=== PATIENT | male | born 1975 | race Caucasian/White ===

== ENCOUNTER 2022-05-21 01:05 | Inpatient (IN) ==
[2022-05-21] MEDS ORDERED: MoRPHine SULFATE 4 MG/ML 1 ML CARP\\VIAL IV STA (01:15)
[2022-05-21] MEDS ORDERED: SODIUM CHLORIDE 0.9% 1000ML 1,000 ML IV STA (01:15)
[2022-05-21] MEDS ORDERED: ONDANSETRON INJ 2 MG/ML 2 ML VIAL IV STA (01:15)
[2022-05-21 01:34] LABS: Basophils # (auto) 0.03 K/uL (0-0.2); Basophils % (auto) 0.3 %; Eosinophils # (auto) 0.12 K/uL (0-0.50); Hematocrit (blood only) 44.5 % (40.1-51.0); Hemoglobin 15.6 g/dl (14.0-18.0); Immature Granulocytes # (auto) 0.03 K/uL (0.00-0.02); Immature Granulocytes % (auto) 0.3 %; Lymphocytes # (auto) 3.04 K/uL (1.2-3.4); Mean Corpuscular Hemoglobin 32.4 pg (25.0-34.0); Mean Corpuscular Hgb Conc 35.1 g/dL (32.0-36.0); Mean Corpuscular Volume 92.5 fL (80.0-100.0); Mean Platelet Volume 9.7 fL (9.4-12.4); Monocytes # (auto) 0.95 K/uL (0.24-0.82); Monocytes % (auto) 8.1 %; Neutrophils # (auto) 7.54 K/uL (1.4-6.5); Neutrophils % (auto) 64.3 %; Platelet Count 236 K/uL (130-400); RDW Coefficient of Variation 12.6 % (11.5-14.5); Red Blood Count 4.81 M/uL (4.63-6.08); White Blood Count 11.71 K/ul (4.8-10.8)
[2022-05-21 01:40] LABS: iSTAT Creatinine 1.5 mg/dl (0.6-1.3); iSTAT Hemoglobin 15.6 g/dl (14.0-18.0); iSTAT Ionized Calcium 1.1 mmol/l (1.12-1.32); iSTAT Potassium 3.4 mmol/L (3.3-5.0)
[2022-05-21] MEDS ORDERED: OPTIRAY 350 100ml IV ONE (01:47)
--- NOTE | 2022-05-21 01:53 | Emergency Department Note ---
History of Present Illness General Chief complaint: Abdominal Pain Stated complaint: ABDOMINAL PAIN/NAUSEA/VOMITING Time Seen by Provider: 05/21/22 01:14 History of Present Illness Maximum Pain Intensity: 8 This 46-year-old presents to the ER complaining of severe abdominal pain Location: Mid abdomen Quality: Painful Severity: Severe Duration: Today Timing: Started after lunch Context: Patient was concerned and came in Modifying factors: better with nothing; worse with palpation Patient states after zoom meeting his pain got much worse. He is not sure what happened. No direct trauma. He has had hernia surgeries. No other surgeries. He states he is normally bradycardic. He is quite active. Patient denies chest pain, dyspnea, vomiting, diarrhea, fever, chills. Home Medications Medication Instructions Recorded Confirmed Type ibuprofen 200 mg tablet 400 mg PO DIRECTED PRN Pain 05/21/22 05/21/22 History Allergies Allergy/AdvReac Type Severity Reaction Status Date / Time No Known Allergies Allergy Verified 05/21/22 02:47 Past Med/Surg History Medical History (Updated 05/21/22 @ 02:18 by Kajal Ryder PA-C) LUIS (generalized anxiety disorder) History of colitis Human papilloma virus IBS (irritable bowel syndrome) OCD (obsessive compulsive disorder) Panic attacks Surgical History History of colonoscopy History of tooth extraction Nausea and vomiting after administration of anesthetic agent S/P orchiopexy Status post scrotal varicocelectomy Social History Smoking Status: Never smoker Second Hand Exposure: No; Hx Alcohol Use: Yes Alcohol type: beer and wine Hx Substance Use: No Preferred Language: [place] Communication Ability: Effective Visual Impairment: No Limitations Snuff Box Finisher Required: No Beliefs That Will Affect Care: None Current Living Situation: Spouse Feels Safe at Home: Yes Assistive Devices: None Review of Systems A total of 10 systems reviewed and were otherwise negative Physical Exam Vital Signs Vital Signs - 24 hr 05/21/22 01:38 05/21/22 02:27 Temperature 36.5 C Temperature Source Oral Pulse Rate 47 L Pulse Rate [Apical] 43 L Respiratory Rate 22 13 Respiratory Effort / Characteristics Spontaneous Moaning Non-Labored Spontaneous Respiratory Depth Normal Normal Blood Pressure 126/74 Blood Pressure [Right Arm] 134/81 Blood Pressure Mean 91 Blood Pressure Mean [Right Arm] 98 Pulse Oximetry 96 99 Oxygen Delivery Method Room Air Room Air Sepsis New/Unexplained Change in Mental Status N/A Sepsis Action Taken by Nursing No Action Required VITALS: Vitals are noted on the nurse's note and reviewed by myself. Vital signs stable. GENERAL: Pleasant male who appears in pain, in no acute distress, nondiaphoretic, well-developed well-nourished. SKIN: The skin was without rashes, erythema, edema, or bruising. There is no tenting of the skin. Capillary reflex less than 2 seconds. HEAD: Normocephalic atraumatic. EARS: External auditory canals clear, EYES: Pupils equal round and reactive to light and accommodation. Conjunctivae without injection, sclerae without icterus. Extraocular movements intact. NOSE: Patent, turbinates without inflammation or discharge. MOUTH: Mucous membranes moist. Pharynx without erythema or exudate. Uvula midline. Airway patent. Tongue does not deviate. NECK: Supple without nuchal rigidity. No lymphadenopathy. No thyromegaly. Cervical spine is nontender. No JVD. HEART: Regular rate and rhythm LUNGS: Clear to auscultation bilaterally without wheezes, rales or rhonchi. No retractions or accessory muscle use. ABDOMEN: Positive bowel sounds x 4. Normal tympanic percussion. Soft, diffusely tender to palpation without masses or organomegaly. Coe sign negative. + guarding + rebound tenderness. No CVA tenderness MUSCULOSKELETAL: No muscle atrophy, erythema, or edema noted. NEURO: Patient was alert and oriented to person place and time. Normal sensation to light and sharp touch. No focal neurological deficits. Course Administered Medications Discontinued Medications Sodium Chloride (Nss 1000ml) 1,000 mls @ 999 mls/hr IV .Q1H1M STA Stop: 05/21/22 02:15 Last Infusion: 05/21/22 02:26 Dose: 0 mls/hr Documented By: Admin: 05/21/22 01:33 Dose: 999 mls/hr Documented By: JEANINE Ioversol (Optiray 350 100ml) 89 ml IV ONCE ONE Stop: 05/21/22 01:48 Last Admin: 05/21/22 01:47 Dose: 89 ml Documented By: RAJESH Morphine Sulfate (Morphine Sulfate 4 Mg/Ml 1 Ml Carp\Vial) 4 mg IV NOW STA Stop: 05/21/22 01:16 Last Admin: 05/21/22 01:29 Dose: 4 mg Documented By: JEANINE Ondansetron HCl (Ondansetron Inj 2 Mg/Ml 2 Ml Vial) 4 mg IV NOW STA Stop: 05/21/22 01:16 Last Admin: 05/21/22 01:29 Dose: 4 mg Documented By: JEANINE Medical Decision Making Medical Records Attestation: I reviewed the patient's medical records. Home Medications Current Medication List: was personally reviewed by me Laboratory Data Attestation: I reviewed the patient's lab results. Result diagrams: 05/21/22 01:05/21/22:22 Lab Results 05/21/22 05/21/22 05/21/22 Range/Units 01: 01: 01:27 WBC 11.71 H (4.8-10.8) K/ul RBC 4.81 (4.63-6.08) M/uL Hgb 15.6 (14.0-18.0) g/dl POC Hgb 15.6 (14.0-18.0) g/dl Hct 44.5 (40.1-51.0) % POC Hct 46 (42-52) % MCV 92.5 (80.0-100.0) fL MCH 32.4 (25.0-34.0) pg MCHC 35.1 (32.0-36.0) g/dL RDW Std Deviation 43.0 (36.4-46.3) fL RDW Coeff of Trish 12.6 (11.5-14.5) % Plt Count 236 (130-400) K/uL MPV 9.7 (9.4-12.4) fL Immature Gran % (Auto) 0.3 % Neut % (Auto) 64.3 % Lymph % (Auto) 26.0 % [place] % (Auto) 8.1 % Eos % (Auto) 1.0 % Baso % (Auto) 0.3 % Neut # (Auto) 7.54 H (1.4-6.5) K/uL Lymph # (Auto) 3.04 (1.2-3.4) K/uL [place] # (Auto) 0.95 H (0.24-0.82) K/uL Eos # (Auto) 0.12 (0-0.50) K/uL Baso # (Auto) 0.03 (0-0.2) K/uL Immature Gran # (Auto) 0.03 H (0.00-0.02) K/uL POC Sodium 140 (135-144) mmol/L Sodium 139 (136-145) mmol/L POC Potassium 3.4 (3.3-5.0) mmol/L Potassium 3.5 (3.5-5.1) mmol/L POC Chloride 102 (101-112) mmol/L Chloride 102 (98-107) mmol/L Carbon Dioxide 28 (21-32) mmol/L POC Total CO2 29 (24-31) mmol/L Anion Gap 9 (3-11) POC Anion Gap 13.0 L (16-25) mmol/L POC BUN 22 H (7-18) mg/dl BUN 21 (6-23) mg/dl Creatinine 1.44 H (0.6-1.4) mg/dl POC Creatinine 1.5 H (0.6-1.3) mg/dl Est Cr Clr Drug Dosing 82.0 ml/min Est GFR ( Amer) 67.0 ml/min Est GFR (Non-Af Amer) 57.8 ml/min BUN/Creatinine Ratio 14.6 (10-20) Glucose 115 H (70-99(Fasting)) mg/dl POC Glucose (other) 116 H (70-99) mg/dl Lactate (0.4-2.0) mmol/L Calcium 10.0 (8.5-10.1) mg/dl POC Ioniz Calcium Kristi 1.10 L (1.12-1.32) mmol/l Total Bilirubin 1.1 H (0.2-1.0) mg/dl AST 28 (13-39) U/L ALT 39 (7-52) U/L Alkaline Phosphatase 54 (34-104) U/L Troponin I High Sens 7.0 (0-20) pg/ml Total Protein 7.1 (6.0-8.3) gm/dl Albumin 4.2 (3.4-5.0) gm/dl Globulin 2.9 (2.5-4.0) gm/dl Albumin/Globulin Ratio 1.4 (0.9-2) Lipase 8 L (11-82) U/L SARS-CoV-2, RNA, NAAT (NEGATIVE) 05/21/22 05/21/22 Range/Units 02:06 02:20 WBC (4.8-10.8) K/ul RBC (4.63-6.08) M/uL Hgb (14.0-18.0) g/dl POC Hgb (14.0-18.0) g/dl Hct (40.1-51.0) % POC Hct (42-52) % MCV (80.0-100.0) fL MCH (25.0-34.0) pg MCHC (32.0-36.0) g/dL RDW Std Deviation (36.4-46.3) fL RDW Coeff of Trish (11.5-14.5) % Plt Count (130-400) K/uL MPV (9.4-12.4) fL Immature Gran % (Auto) % Neut % (Auto) % Lymph % (Auto) % [place] % (Auto) % Eos % (Auto) % Baso % (Auto) % Neut # (Auto) (1.4-6.5) K/uL Lymph # (Auto) (1.2-3.4) K/uL [place] # (Auto) (0.24-0.82) K/uL Eos # (Auto) (0-0.50) K/uL Baso # (Auto) (0-0.2) K/uL Immature Gran # (Auto) (0.00-0.02) K/uL POC Sodium (135-144) mmol/L Sodium (136-145) mmol/L POC Potassium (3.3-5.0) mmol/L Potassium (3.5-5.1) mmol/L POC Chloride (101-112) mmol/L Chloride (98-107) mmol/L Carbon Dioxide (21-32) mmol/L POC Total CO2 (24-31) mmol/L Anion Gap (3-11) POC Anion Gap (16-25) mmol/L POC BUN (7-18) mg/dl BUN (6-23) mg/dl Creatinine (0.6-1.4) mg/dl POC Creatinine (0.6-1.3) mg/dl Est Cr Clr Drug Dosing ml/min Est GFR ( Amer) ml/min Est GFR (Non-Af Amer) ml/min BUN/Creatinine Ratio (10-20) Glucose (70-99(Fasting)) mg/dl POC Glucose (other) (70-99) mg/dl Lactate 1.7 (0.4-2.0) mmol/L Calcium (8.5-10.1) mg/dl POC Ioniz Calcium Kristi (1.12-1.32) mmol/l Total Bilirubin (0.2-1.0) mg/dl AST (13-39) U/L ALT (7-52) U/L Alkaline Phosphatase (34-104) U/L Troponin I High Sens (0-20) pg/ml Total Protein (6.0-8.3) gm/dl Albumin (3.4-5.0) gm/dl Globulin (2.5-4.0) gm/dl Albumin/Globulin Ratio (0.9-2) Lipase (11-82) U/L SARS-CoV-2, RNA, NAAT NEGATIVE (NEGATIVE) Imaging Data Attestation: I personally reviewed and interpreted this imaging study as follows: MDM Narrative Prior records/ancillary studies reviewed. Triage Nursing notes reviewed. Additional history obtained from EMS. The patient's history was concerning for abdominal pain. Differential diagnosis: Etiologies such as appendicitis, diverticulitis, PUD, biliary pathology, UTI, pancreatitis, obstruction, mesenteric ischemia, aortic pathology, infections, inflammatory bowel disease, renal colic, as well as others were entertained. Physical examination findings: As above. ER treatment provided: An order was placed for continuous cardiac monitoring. The monitor shows a rate of 30-80 with a sinus rhythm. Morphine and Zofran were written for, IV fluids On reassessment the patient felt better. Diagnostics interpreted by me: ECG: Ordered for bradycardia EKG: Normal sinus, normal intervals, no acute ST-T wave changes. Impression sinus bradycardia interpreted by myself I think arrhythmia is unlikely. EKG shows normal sinus rhythm with no interval abnormalities such as QT prolongation or WPW. There are no findings to suggest Brugada syndrome. Cardiac monitoring in the emergency department reveals no tachycardic or bradycardic dysrhythmia. Hypertrophic cardiomyopathy was considered but there are no clear historical elements pointing toward this. EKG is not suggestive. The QRS voltage is not extremely large and there are no suggestive Q waves. The labs revealed leukocytosis Imaging studies: CT ABDOMEN & PELVIS With Contrast: Multiple fluid and gas-filled dilated small bowel loops throughout the abdomen and pelvis with regional mesenteric edema. There is a transition point noted in the anterior midline pelvis (series 302; image 23), consistent with a high-grade mid to distal small bowel obstruction. No pneumatosis or pneumoperitoneum. Trace presumed reactive free fluid in the pelvis, perihepatic and perisplenic regions and Ramirez's pouch. The bladder is unremarkable. No acute osseous or significant overlying soft tissue abnormality. Incidental postsurgical changes involving the right inguinal region. Incidental normal caliber appendix. The liver, gallbladder, pancreas, spleen, adrenal glands and kidneys are unremarkable. Radiologist: Chaitanya Cummings MD Consultation: A consultation was placed with the GS, Dr French. The case was discussed and diagnostics were reviewed. The patient was evaluated in the ER for further treatment. Medicine was consulted and will admit. Exam and history seem consistent with small bowel obstruction. Surgery and medicine were consulted. Patient will be admitted to the hospital. By the evaluation outlined above emergent etiologies such as appendicitis, diverticulitis, PUD, biliary pathology, UTI, pancreatitis, mesenteric ischemia, aortic pathology, infections, inflammatory bowel disease, renal colic, as well as others were deemed relatively unlikely. The pt informed about the findings as listed above. All questions were answered and pleased with the treatment. The chart was completed utilizing rVue Speech voice recognition software. Grammatical errors, random word insertions, pronoun errors, and incomplete sentences are an occassional consequence of this system due to software limitations, ambient noise, and hardware issues. Any formal questions or concerns about the content, text, or information contained within the body of this dictation should be directly addressed to the physician purchasing administrative assistant for clarification. Impression & Plan Small bowel obstruction Discharge Plan Visit Data Chief Complaint: Abdominal Pain Stated Complaint: ABDOMINAL PAIN/NAUSEA/VOMITING ED Provider: Kaley Jimenez ED Midlevel Provider: Kajal Ryder Discharge Problem: Small bowel obstruction Patient Disposition: Admitted As Inpatient Condition: Good Forms Stand Alone Forms: My [employer] Prescriptions Prescriptions: No Action ibuprofen 200 mg Tablet 400 mg PO DIRECTED PRN (Reason: Pain) Referrals Referrals: Dominick Baker MD [Primary Care Provider] -
[2022-05-21 02:09] LABS: Albumin Globulin Ratio 1.4 (0.9-2); Albumin Level 4.2 gm/dl (3.4-5.0); BUN Creatinine Ratio 14.6 (10-20); Bilirubin,Total 1.1 mg/dl (0.2-1.0); Est GFR (Non-African American) 57.8 ml/min; Globulin 2.9 gm/dl (2.5-4.0); Potassium 3.5 mmol/L (3.5-5.1); Total Protein 7.1 gm/dl (6.0-8.3)
--- NOTE | 2022-05-21 05:55 | History and Physical Report ---
DATE OF ADMISSION: 05/21/2022. CHIEF COMPLAINT: Abdominal pain. HISTORY OF PRESENT ILLNESS: This is a 46-year-old male with past medical history significant for irritable bowel syndrome, diarrhea, history of plantar warts, history of generalized anxiety disorder, obsessive compulsive disorder, panic attacks, history of umbilical hernia, incisional hernia, presents with abdominal pain starting yesterday afternoon associated with nausea and vomiting. The imaging studies showed small-bowel obstruction, possible high-grade obstruction. Currently, resting comfortably and hemodynamically stable. When he came, the pain was 7/10 in severity, currently pain is 2/10 in severity. No headache, no blurred vision, no earache, no runny nose, no sore throat, no cough, no difficulty swallowing, no chest pain, no shortness of breath. Last bowel movement was last evening at 7:00 p.m. Normal bladder movements. ALLERGIES: No known drug allergies. PAST MEDICAL HISTORY: As mentioned above. PAST SURGICAL HISTORY: Colonoscopy, orchiopexy for undescended testes in 1987, repair of incisional hernia, repair of right inguinal hernia, revision of spermatic cord veins in 2003. MEDICATIONS: Ibuprofen as needed. FAMILY HISTORY: Significant for brother has hypertension, father has hypertension, sister has hypertension. SOCIAL HISTORY: , no smoking. Alcohol two per week as per Epic. No drug use. REVIEW OF SYSTEMS: As per HPI. Rest of review of systems is negative. PHYSICAL EXAMINATION: GENERAL: The patient is of moderate build, not in acute distress. VITAL SIGNS: Temperature 36.5, pulse 43, respiratory rate 13, blood pressure 134/81, oxygen 99% on room air. HEENT: Pupils equal, round and reactive to light. Oral mucosa moist. NECK: No JVD or neck masses. CARDIOVASCULAR: S1 and S2 heard. Regular rate and rhythm. No murmur, no gallop. RESPIRATORY SYSTEM: Normal AP diameter. No accessory muscle use. No wheezing, no crackles. ABDOMEN: Soft, bowel sounds present. Mild abdominal discomfort. No guarding, no rigidity, no distention. CENTRAL NERVOUS SYSTEM: Cranial nerves II-XII grossly intact, nonfocal. EXTREMITIES: No edema, no erythema. LABORATORY DATA: WBC 11.7, hemoglobin 15.6, hematocrit 44.5, platelets 236. Sodium 139, potassium 3.5, chloride 102, bicarbonate 28, BUN 21, creatinine 1.44, serum glucose 115, lactate 1.7, calcium 10, total bilirubin 1.1, AST 28, ALT 39, alkaline phosphatase 54. Troponin I high sensitivity 7, lipase 8. SARS-CoV-2 rapid test negative. IMAGING DATA: CT of abdomen and pelvis, preliminary report, possible high-grade small bowel obstruction. EKG: Sinus bradycardia at a rate of 39. ASSESSMENT AND PLAN: This is a 46-year-old male who presents with abdominal pain and found to have small bowel obstruction. 1. Abdominal pain:small bowel obstruction.Possible high grade obstruction. Currently on exam, the patient has not much abdominal discomfort and also the bowel sounds are present. Will keep him n.p.o., IV fluids, IV antiemetics, and consult GI in the a.m. Consult surgery in the a.m. 2. Bradycardia: Seems to be chronic. Seemed followed up with cardiology for chest discomfort and ekg showed bradycardia .Looks like he is athlete.No further testing recommended .Will Monitor. 3.Deep venous thrombosis prophylaxis: Sequential compression devices for now. DISPOSITION: Admit to medical floor. Expect to discharge home and follow with family doctor. Job ID: [id number] [facility]
[2022-05-21] MEDS: D5W AND NSS 1,000 ML IV SCH ×3 (05:59→22:06)
[2022-05-21] MEDS: HYDROmorphone INJ 0.5 MG/0.5 ML SYR IV PRN ×3 (06:01→15:33)
--- NOTE | 2022-05-21 09:12 | CT Scan Report ---
CT abd pelvis IV con only CLINICAL HISTORY: severe mid pain TECHNIQUE: Helical axial images of the abdomen and pelvis were obtained and displayed. Automated dose lowering techniques and/or adjustment according to patient size were utilized for this exam. This e xam was performed with intravenous contrast. CT DOSE: 669.48 mGy.cm COMPARISON: Comparison is made to CT abdomen pelvis 01/21/2018 FINDINGS: Lower chest: No acute abnormality Liver: Unremarkable. No focal lesions are seen. Gallbladder and biliary tree: No calcified gallstones. Normal caliber wall. No intra- or extrahepatic biliary ductal dilation. Pancreas: Unremarkable, no focal lesions. Spleen: Unremarkable. Adrenals: Unremarkable. Kidneys and ureters: Unremarkable. Bladder: Unremarkable. Reproductive organs: Unremarkable. Bowel: The colon is relatively under distended. There are numerous loops of gas and fluid-filled dila cory small bowel measuring up to 32 mm in diameter with wall thickening and surrounding edema. No prox imal transition point is seen. A distal transition point is noted in the mid pelvis. Lymph nodes Retroperitoneal: Unremarkable. Pelvic: Unremarkable. Mesenteric: Unremarkable. Peritoneum: A small amount of free fluid is seen about the loops of bowel in the dependent portion of the peritoneum. No pneumoperitoneum is seen. Vessels: Unremarkable. Abdominal wall: Surgical clips are in the right lower quadrant. Bones: Degenerative changes in the visualized spine. Corticated fragments about the anterior superior aspect of L4 are likely chronic. IMPRESSION: Multiple dilated loops of small bowel with a distal transition point, compatible with high-grade smal l bowel obstruction. Free fluid is seen but there is no pneumoperitoneum. ACT 112: Negative or not required by law. Electronically signed by: Ke Plata M.D. 05/21/2022 9:11 AM
[2022-05-21 10:31] LABS: Appearance Urine Clear (Clear); Bilirubin Urine Negative (Negative); Blood Urine Negative (Negative); Color Urine Yellow; Glucose Urine UA Negative (Negative); Ketones Urine Trace (Negative); Leukocyte Esterase Urine Negative (Negative); Nitrite Urine Negative (Negative); Protein Urine Negative (Negative); Specific Gravity Urine > 1.045 (1.000-1.030); Urobilinogen Urine Negative (Negative); pH Urine 5.5 (4.5-7.5)
--- NOTE | 2022-05-21 10:31 | Surgery Consultation ---
Date of Consultation May 21, 2022 Assessment & Plan (1) Small bowel obstruction: Plan 46 year-old male who presented to ED with 1 day history of abdominal pain with associated nausea and vomiting. CT scan showing SBO with transition point in distal SBO consistent with high grade obstruction. History of laparoscopic inguinal hernia and open incisional hernia repair with mesh. hemodynamically stable. lactic acid wnl. Abdomen soft, mild distended, tender in upper abdomen bilaterally but no peritonitis , rigidity, or rebound. Plan: Discussed with patient imaging and lab findings. Imaging consistent with SBO. No acute peritoneal signs on exam and he is clinically feeling better. Recommend conservative management: NPO, bowel rest, IV fluids, pain management as needed, antiemetics as needed and highly encouraged ambulation continue current medical management repeat am labs Dr. French has seen and examined pt. See addendum for further recommendations/plan. History of Present Illness Reason for Consultation: SBO Requesting Physician: Dr. Patrice Herrera MD Attending Physician: Noah Reis MD History of Present Illness Humberto is a 46 year-old male who presented to emergency department with complaint of severe fluctuating abdominal pain with associated nausea and vomiting that began yesterday afternoon. States pain all started after eating lunch at work. States he had cramping severe pain and then self resolved. Associated bloating. Went home and felt better ate dinner and had bowel movement at 8 pm and then started having severe pain again with syncope and nausea and vomiting x 3. Called ambulance. ER work-up showed mild leukocytosis , normal lactic acid and ct scan of abdomen and pelvis with IV contrast showing high grade SBO. He has history of laparoscopic right inguinal her[place] [address] Andrade and open incisional/umbilical hernia with mesh by Dr. French in 2020. Never had bowel obstruction previously. He states he is currently feeling better but believes this is due to the pain medication. Has not need any further antiemetics since being on the floor. Not really passing much gas. Abdominal pain is mild at the present moment. Mostly upper mid abdomen. Feeling slightly bloated. No nausea or vomiting. Allergies Allergy/AdvReac Type Severity Reaction Status Date / Time No Known Allergies Allergy Verified 05/21/22 02:47 Home Medications Medication Instructions Recorded Confirmed Type ibuprofen 200 mg tablet 400 mg PO DIRECTED PRN Pain 05/21/22 05/21/22 History Patient History Medical History (Updated 05/21/22 @ 02:18 by Kajal Ryder PA-C) LUIS (generalized anxiety disorder) History of colitis Human papilloma virus IBS (irritable bowel syndrome) OCD (obsessive compulsive disorder) Panic attacks Surgical History (Updated 05/21/22 @ 10:26 by Carmen Khan PA-C) History of colonoscopy History of incisional hernia repair 2020 with mesh History of right inguinal hernia repair Laparoscopic 2018 History of tooth extraction Nausea and vomiting after administration of anesthetic agent S/P orchiopexy Status post scrotal varicocelectomy Social History Smoking Status: Never smoker Second Hand Exposure: No; Do You Dip or Chew Tobacco: No; Tobacco Cessation Education Requested by Patient: No Hx Alcohol Use: Yes Alcohol type: beer Hx Substance Use: No Preferred Language: Armenian Communication Ability: Effective Visual Impairment: No 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 Beliefs That Will Affect Care: None Current Living Situation: Family Other Information That Helps Us Care for You: No Feels Safe at Home: Yes Safety Concerns: Feels Safe At This Time Assistive Devices: None Review of Systems Review of Systems: All systems reviewed & are unremarkable except as noted in HPI & below Physical Exam Constitutional: WD/WN, vitals as above cooperative and comfortable; no acute distress and not ill appearing Neck: normal visual inspection and trachea midline Respiratory: normal respiratory effort, lungs clear to auscultation Cardiovascular: Rate/Rhythm: + bradycardic Heart Sounds: normal S1 and normal S2 Gastrointestinal (Abdomen): Inspection/Auscultation: + abdomen distended (mild), + abdominal surgical scar (supraumbilical and laparoscopic) and + hypoactive bowel sounds; + abnormal bowel sounds Percussion/Palpation: + abdomen tender (upper abdomen) and abdomen soft; no guarding, abdomen not rigid and abdomen not firm Skin: no rashes, warm and dry Psychiatric: A+Ox3, euthymic affect Results & Data ([facility]) Vital Signs (Past 12 Hours) Vital Signs Temp Pulse Pulse Pulse Resp BP BP 05/21/22 04:40 05/21/22 04:40 36.6 C 45 L 16 142/82 H 05/21/22 04:40 05/21/22 04:40 36.6 C 45 L 16 142/82 H 05/21/22 04:42 05/21/22 04:28 40 L 16 142/78 H 05/21/22 02:27 43 L 13 134/81 05/21/22 01:38 36.5 C 47 L 22 126/74 Pulse Ox O2 Del Method 05/21/22 04:40 Room Air 05/21/22 04:40 99 Room Air 05/21/22 04:40 Room Air 05/21/22 04:40 99 Room Air 05/21/22 04:42 Room Air 05/21/22 04:28 98 Room Air 05/21/22 02:27 99 Room Air 05/21/22 01:38 96 Room Air Laboratory Results 05/21/22 05/21/22 05/21/22 Range/Units 10:00 02:20 02:06 WBC (4.8-10.8) K/ul RBC (4.63-6.08) M/uL Hgb (14.0-18.0) g/dl POC Hgb (14.0-18.0) g/dl Hct (40.1-51.0) % POC Hct (42-52) % MCV (80.0-100.0) fL MCH (25.0-34.0) pg MCHC (32.0-36.0) g/dL RDW Std Deviation (36.4-46.3) fL RDW Coeff of Trish (11.5-14.5) % Plt Count (130-400) K/uL MPV (9.4-12.4) fL Immature Gran % (Auto) % Neut % (Auto) % Lymph % (Auto) % [place] % (Auto) % Eos % (Auto) % Baso % (Auto) % Neut # (Auto) (1.4-6.5) K/uL Lymph # (Auto) (1.2-3.4) K/uL [place] # (Auto) (0.24-0.82) K/uL Eos # (Auto) (0-0.50) K/uL Baso # (Auto) (0-0.2) K/uL Immature Gran # (Auto) (0.00-0.02) K/uL POC Sodium (135-144) mmol/L Sodium (136-145) mmol/L POC Potassium (3.3-5.0) mmol/L Potassium (3.5-5.1) mmol/L POC Chloride (101-112) mmol/L Chloride (98-107) mmol/L Carbon Dioxide (21-32) mmol/L POC Total CO2 (24-31) mmol/L Anion Gap (3-11) POC Anion Gap (16-25) mmol/L POC BUN (7-18) mg/dl BUN (6-23) mg/dl Creatinine (0.6-1.4) mg/dl POC Creatinine (0.6-1.3) mg/dl Est Cr Clr Drug Dosing ml/min Est GFR ( Amer) ml/min Est GFR (Non-Af Amer) ml/min BUN/Creatinine Ratio (10-20) Glucose (70-99(Fasting)) mg/dl POC Glucose (other) (70-99) mg/dl Lactate 1.7 (0.4-2.0) mmol/L Calcium (8.5-10.1) mg/dl POC Ioniz Calcium Kristi (1.12-1.32) mmol/l Total Bilirubin (0.2-1.0) mg/dl AST (13-39) U/L ALT (7-52) U/L Alkaline Phosphatase (34-104) U/L Troponin I High Sens (0-20) pg/ml Total Protein (6.0-8.3) gm/dl Albumin (3.4-5.0) gm/dl Globulin (2.5-4.0) gm/dl Albumin/Globulin Ratio (0.9-2) Lipase (11-82) U/L Urine Color Pending Urine Appearance Pending Urine pH Pending Ur Specific [place] Pending Urine Protein Pending Urine Glucose (UA) Pending Urine Ketones Pending Urine Blood Pending Urine Nitrite Pending Urine Bilirubin Pending Urine Urobilinogen Pending Ur Leukocyte Esterase Pending SARS-CoV-2, RNA, NAAT NEGATIVE (NEGATIVE) 05/21/22 05/21/22 05/21/22 Range/Units 01:27 01:22 01:22 WBC 11.71 H (4.8-10.8) K/ul RBC 4.81 (4.63-6.08) M/uL Hgb 15.6 (14.0-18.0) g/dl POC Hgb 15.6 (14.0-18.0) g/dl Hct 44.5 (40.1-51.0) % POC Hct 46 (42-52) % MCV 92.5 (80.0-100.0) fL MCH 32.4 (25.0-34.0) pg MCHC 35.1 (32.0-36.0) g/dL RDW Std Deviation 43.0 (36.4-46.3) fL RDW Coeff of Trish 12.6 (11.5-14.5) % Plt Count 236 (130-400) K/uL MPV 9.7 (9.4-12.4) fL Immature Gran % (Auto) 0.3 % Neut % (Auto) 64.3 % Lymph % (Auto) 26.0 % [place] % (Auto) 8.1 % Eos % (Auto) 1.0 % Baso % (Auto) 0.3 % Neut # (Auto) 7.54 H (1.4-6.5) K/uL Lymph # (Auto) 3.04 (1.2-3.4) K/uL [place] # (Auto) 0.95 H (0.24-0.82) K/uL Eos # (Auto) 0.12 (0-0.50) K/uL Baso # (Auto) 0.03 (0-0.2) K/uL Immature Gran # (Auto) 0.03 H (0.00-0.02) K/uL POC Sodium 140 (135-144) mmol/L Sodium 139 (136-145) mmol/L POC Potassium 3.4 (3.3-5.0) mmol/L Potassium 3.5 (3.5-5.1) mmol/L POC Chloride 102 (101-112) mmol/L Chloride 102 (98-107) mmol/L Carbon Dioxide 28 (21-32) mmol/L POC Total CO2 29 (24-31) mmol/L Anion Gap 9 (3-11) POC Anion Gap 13.0 L (16-25) mmol/L POC BUN 22 H (7-18) mg/dl BUN 21 (6-23) mg/dl Creatinine 1.44 H (0.6-1.4) mg/dl POC Creatinine 1.5 H (0.6-1.3) mg/dl Est Cr Clr Drug Dosing 82.0 ml/min Est GFR ( Amer) 67.0 ml/min Est GFR (Non-Af Amer) 57.8 ml/min BUN/Creatinine Ratio 14.6 (10-20) Glucose 115 H (70-99(Fasting)) mg/dl POC Glucose (other) 116 H (70-99) mg/dl Lactate (0.4-2.0) mmol/L Calcium 10.0 (8.5-10.1) mg/dl POC Ioniz Calcium Kristi 1.10 L (1.12-1.32) mmol/l Total Bilirubin 1.1 H (0.2-1.0) mg/dl AST 28 (13-39) U/L ALT 39 (7-52) U/L Alkaline Phosphatase 54 (34-104) U/L Troponin I High Sens 7.0 (0-20) pg/ml Total Protein 7.1 (6.0-8.3) gm/dl Albumin 4.2 (3.4-5.0) gm/dl Globulin 2.9 (2.5-4.0) gm/dl Albumin/Globulin Ratio 1.4 (0.9-2) Lipase 8 L (11-82) U/L Urine Color Urine Appearance Urine pH Ur Specific [place] Urine Protein Urine Glucose (UA) Urine Ketones Urine Blood Urine Nitrite Urine Bilirubin Urine Urobilinogen Ur Leukocyte Esterase SARS-CoV-2, RNA, NAAT (NEGATIVE) Diagnostic Findings CT abd pelvis IV con only 05/21/2022 CLINICAL HISTORY: severe mid pain TECHNIQUE: Helical axial images of the abdomen and pelvis were obtained and displayed. Automated dose lowering techniques and/or adjustment according to patient size were utilized for this exam. This exam was performed with intravenous contrast. CT DOSE: 669.48 mGy.cm COMPARISON: Comparison is made to CT abdomen pelvis 01/21/2018 FINDINGS: Lower chest: No acute abnormality Liver: Unremarkable. No focal lesions are seen. Gallbladder and biliary tree: No calcified gallstones. Normal caliber wall. No intra- or extrahepatic biliary ductal dilation. Pancreas: Unremarkable, no focal lesions. Spleen: Unremarkable. Adrenals: Unremarkable. Kidneys and ureters: Unremarkable. Bladder: Unremarkable. Reproductive organs: Unremarkable. Bowel: The colon is relatively under distended. There are numerous loops of gas and fluid-filled dilated small bowel measuring up to 32 mm in diameter with wall thickening and surrounding edema. No proximal transition point is seen. A distal transition point is noted in the mid pelvis. Lymph nodes Retroperitoneal: Unremarkable. Pelvic: Unremarkable. Mesenteric: Unremarkable. Peritoneum: A small amount of free fluid is seen about the loops of bowel in the dependent portion of the peritoneum. No pneumoperitoneum is seen. Vessels: Unremarkable. Abdominal wall: Surgical clips are in the right lower quadrant. Bones: Degenerative changes in the visualized spine. Corticated fragments about the anterior superior aspect of L4 are likely chronic. IMPRESSION: Multiple dilated loops of small bowel with a distal transition point, compatible with high-grade small bowel obstruction. Free fluid is seen but there is no pneumoperitoneum.
--- NOTE | 2022-05-21 14:37 | Electrocardiogram Report ---
Test Reason : Blood Pressure : / mmHG Vent. Rate : 039 BPM Atrial Rate : 039 BPM P-R Int : 204 ms QRS Dur : 106 ms QT Int : 484 ms P-R-T Axes : 067 077 047 degrees QTc Int : 389 ms Marked sinus bradycardia Abnormal ECG No previous ECGs available Confirmed by Cecil Lo ([id number]) on 05/21/2022 2:37:08 PM Referred By: REFERRED SELF Confirmed By:Cecil Lo
--- NOTE | 2022-05-21 16:36 | Communication Note ---
Date of Service: May 21, 2022 Patient is a 46-year-old male with history of incisional and laparoscopic right inguinal hernia repairs presented to the hospital with a small bowel obst ruction. He was seen and examined at bedside. He states that his abdomen is slightly less distended compared to admission. He still feels nauseous; no episode of vomiting in the morning. His abdomen is nontender and bowel sounds are present. He was seen by surgery who recommended conservative management with bowel rest, no NG tube and IV fluids. He is placed on IV Tylenol for pain control which should be preferred over narcotics. We will follow clinically and obtain KUB abdomen in the a.m.
[2022-05-21] MEDS: ACETAMINOPHEN 1,000 MG/100 ML VIAL IV PRN (19:09)
[2022-05-21] MEDS: ONDANSETRON INJ 2 MG/ML 2 ML VIAL IV PRN (19:12)
[2022-05-22] MEDS: HYDROmorphone INJ 0.5 MG/0.5 ML SYR IV PRN (00:51)
[2022-05-22] MEDS: ONDANSETRON INJ 2 MG/ML 2 ML VIAL IV PRN (01:14)
[2022-05-22] MEDS: D5W AND NSS 1,000 ML IV SCH ×3 (06:06→22:40)
[2022-05-22] MEDS: ACETAMINOPHEN 1,000 MG/100 ML VIAL IV PRN ×2 (06:09→21:03)
[2022-05-22 08:17] LABS: Basophils # (auto) 0.02 K/uL (0-0.2); Basophils % (auto) 0.2 %; Eosinophils # (auto) 0.17 K/uL (0-0.50); Eosinophils % (auto) 1.9 %; Hematocrit (blood only) 43.6 % (40.1-51.0); Immature Granulocytes # (auto) 0.03 K/uL (0.00-0.02); Immature Granulocytes % (auto) 0.3 %; Lymphocytes # (auto) 1.43 K/uL (1.2-3.4); Lymphocytes % (auto) 15.9 %; Mean Corpuscular Hemoglobin 31.8 pg (25.0-34.0); Mean Corpuscular Hgb Conc 34.4 g/dL (32.0-36.0); Mean Corpuscular Volume 92.6 fL (80.0-100.0); Mean Platelet Volume 9.8 fL (9.4-12.4); Monocytes # (auto) 1.04 K/uL (0.24-0.82); Monocytes % (auto) 11.6 %; Neutrophils # (auto) 6.29 K/uL (1.4-6.5); Neutrophils % (auto) 70.1 %; Platelet Count 238 K/uL (130-400); RDW Coefficient of Variation 12.6 % (11.5-14.5); RDW Standard Deviation 43.4 fL (36.4-46.3); Red Blood Count 4.71 M/uL (4.63-6.08); White Blood Count 8.98 K/ul (4.8-10.8)
[2022-05-22 08:36] LABS: BUN Creatinine Ratio 9.8 (10-20); Calcium 8.9 mg/dl (8.5-10.1); Creatinine Clr Calc Pharmacy 96.1 ml/min; Est GFR (African American) 81.9 ml/min; Est GFR (Non-African American) 70.7 ml/min; Potassium 4.2 mmol/L (3.5-5.1)
--- NOTE | 2022-05-22 13:02 | Surgery Progress Note ---
Date of Service May 22, 2022 Assessment & Plan (1) Small bowel obstruction: Plan He is doing well this morning. He has had a bowel movement and is continuing to pass flatus. White blood cell count is normal. X-ray is improved. We will advance his diet as tolerated. We will continue serial exams. Admission and Anticipated Discharge Date Admission Date: May 21, 2022 Subjective He is doing well today. He has had bowel movements and flatus this morning. He denies nausea and vomiting. White blood cell count is back to normal. Physical Exam Physical Exam: Abdomen: Soft, nontender, minimally distended Results & Data ([facility]) Vital Signs (Past 12 Hours) Vital Signs Temp Pulse Resp BP Pulse Ox O2 Del Method 05/22/22 07:25 36.6 C 56 L 16 140/75 99 Room Air Laboratory Results 05/22/22 05/22/22 Range/Units 07:53 07:53 WBC 8.98 (4.8-10.8) K/ul RBC 4.71 (4.63-6.08) M/uL Hgb 15.0 (14.0-18.0) g/dl Hct 43.6 (40.1-51.0) % MCV 92.6 (80.0-100.0) fL MCH 31.8 (25.0-34.0) pg MCHC 34.4 (32.0-36.0) g/dL RDW Std Deviation 43.4 (36.4-46.3) fL RDW Coeff of Trish 12.6 (11.5-14.5) % Plt Count 238 (130-400) K/uL MPV 9.8 (9.4-12.4) fL Immature Gran % (Auto) 0.3 % Neut % (Auto) 70.1 % Lymph % (Auto) 15.9 % [place] % (Auto) 11.6 % Eos % (Auto) 1.9 % Baso % (Auto) 0.2 % Neut # (Auto) 6.29 (1.4-6.5) K/uL Lymph # (Auto) 1.43 (1.2-3.4) K/uL [place] # (Auto) 1.04 H (0.24-0.82) K/uL Eos # (Auto) 0.17 (0-0.50) K/uL Baso # (Auto) 0.02 (0-0.2) K/uL Immature Gran # (Auto) 0.03 H (0.00-0.02) K/uL Sodium 138 (136-145) mmol/L Potassium 4.2 (3.5-5.1) mmol/L Chloride 107 (98-107) mmol/L Carbon Dioxide 28 (21-32) mmol/L Anion Gap 3 (3-11) BUN 12 (6-23) mg/dl Creatinine 1.22 (0.6-1.4) mg/dl Est Cr Clr Drug Dosing 96.1 ml/min Est GFR ( Amer) 81.9 ml/min Est GFR (Non-Af Amer) 70.7 ml/min BUN/Creatinine Ratio 9.8 L (10-20) Glucose 116 H (70-99(Fasting)) mg/dl Calcium 8.9 (8.5-10.1) mg/dl
--- NOTE | 2022-05-22 14:38 | XRay Report ---
KUB CLINICAL HISTORY: Small bowel obstruction. FINDINGS: 2 AP supine abdominal radiographs are correlated with abdominal CT dated 05/21/2022. There is evidence of persistent small bowel obstruction. Distended gas-filled loops of small bowel measure up to 4.2 cm. A small amount of gas is seen within the right colon. Postsurgical change projects over the right groin. No evidence of intraperitoneal free air is seen on these supine images. There are n o abnormal abdominal calcifications. Phlebolith are noted in the pelvis. The bony structures appear i ntact. IMPRESSION: Persistent small bowel obstruction. Electronically signed by: Omari Velazquez M.D. 05/22/2022 2:37 PM
--- NOTE | 2022-05-22 23:34 | Hospitalist Progress Note ---
Date of Service May 22, 2022 Assessment & Plan (1) Small bowel obstruction: Plan: Presented on admission with severe abdominal pain associated with N/V CT abd/pelvis showed Multiple dilated loops of small bowel with a distal transition point, compatible with high-grade small bowel obstruction. KUB showed Persistent small bowel obstruction. Symptoms clinically improves and pt had a BM Will start on full liquid diet and advanced as tolerated Continue IVF and pain control Continue monitor closely Bradycardia: Asymptomatic No further testing recommended Deep venous thrombosis prophylaxis on SCD/ambulating Admission and Anticipated Discharge Date Admission Date: May 21, 2022 Subjective Pt was seen and examined for follow up of SBO Walking in the hallway with no acute distress Pt said that he had bowel movement and having gas now He said that he feels a lot better today Denies any chest pain, palpitation, dizziness, nausea, vomiting and SOB Review of Systems Review of Systems: All systems reviewed & are unremarkable except as noted in Subjective Physical Exam Physical Exam: General- No acute distress Head- atraumatic Eyes- PERRL, EOMI, ENT- oropharynx clear Neck- supple, no JVD Lungs- clear to auscultation Heart- regular rhythm; no murmur Abdomen- normal bowel sounds, soft, mild tenderness with deep palpation Extremities- no calf tenderness Neuro- alert, oriented x 3; PERRL, EOMI; no facial palsy; no dysarthria Skin- warm & dry Results & Data Results & Data ([facility]) Vital Signs (Past 12 Hours) Vital Signs Temp Pulse Resp BP Pulse Ox O2 Del Method 05/22/22 21:55 36.8 C 51 L 16 142/80 H 98 Room Air 05/22/22 14:55 36.9 C 53 L 14 124/84 98 Room Air
--- NOTE | 2022-05-23 10:43 | XRay Report ---
KUB HISTORY: Follow up study in a patient with small bowel obstruction f/u COMPARISON: KUB 05/22/2022, CT 05/21/2022 FINDINGS: Surgical clips again noted within the abdominal right lower quadrant. Persistent small manjit l dilation measuring up to approximately 4 cm, previously 4.2 cm. Air is also noted within nondilated loops of large bowel. No renal calculi. No ureteral calculi. No pneumoperitoneum or pneumatosis. Mi ld lumbar levoscoliosis. No fracture. IMPRESSION: Persistent small bowel obstruction with mildly decreased distention of the small bowel compared to ye steralverto's study. Continued follow-up recommended. ACT 112: Negative or not required by law. The above report was generated using voice recognition software. It may contain grammatical, syntax o r spelling errors. Electronically signed by: Tyrell Bishop M.D. 05/23/2022 10:40 AM
--- NOTE | 2022-05-23 11:26 | Discharge Summary ---
Date of Service May 23, 2022 Admission HPI Per Admitting Provider CHIEF COMPLAINT: Abdominal pain. HISTORY OF PRESENT ILLNESS: This is a 46-year-old male with past medical history significant for irritable bowel syndrome, diarrhea, history of plantar warts, history of generalized anxiety disorder, obsessive compulsive disorder, panic attacks, history of umbilical hernia, incisional hernia, presents with abdominal pain starting yesterday afternoon associated with nausea and vom iting. The imaging studies showed small-bowel obstruction, possible high-grade obstruction. Currently, resting comfortably and hemodynamically stable. When he came, the pain was 7/10 in severity, currently pain is 2/10 in severity. No headache, no blurred vision, no earache, no runny nose, no sore throat, no cough, no difficulty swallowing, no chest pain, no shortness of breath. Last bowel movement was last evening at 7:00 p.m. Normal bladder movements. Admission Exam Per Admitting Provider GENERAL: The patient is of moderate build, not in acute distress. VITAL SIGNS: Temperature 36.5, pulse 43, respiratory rate 13, blood pressure 134/81, oxygen 99% on room air. HEENT: Pupils equal, round and reactive to light. Oral mucosa moist. NECK: No JVD or neck masses. CARDIOVASCULAR: S1 and S2 heard. Regular rate and rhythm. No murmur, no gallop. RESPIRATORY SYSTEM: Normal AP diameter. No accessory muscle use. No wheezing, no crackles. ABDOMEN: Soft, bowel sounds present. Mild abdominal discomfort. No guarding, no rigidity, no distention. CENTRAL NERVOUS SYSTEM: Cranial nerves II-XII grossly intact, nonfocal. EXTREMITIES: No edema, no erythema. Principal Diagnosis Small bowel obstruction: Bradycardia: Discharge Exam General- No acute distress Head- atraumatic Eyes- PERRL, EOMI, ENT- oropharynx clear Neck- supple, no JVD Lungs- clear to auscultation Heart- regular rhythm; no murmur Abdomen- normal bowel sounds, soft, mild tenderness with deep palpation Extremities- no calf tenderness Neuro- alert, oriented x 3; PERRL, EOMI; no facial palsy; no dysarthria Skin- warm & dry Discharge Data Allergies Allergy/AdvReac Type Severity Reaction Status Date / Time No Known Allergies Allergy Verified 05/21/22 02:47 Consultations 05/21/22 02:49 ED Decision to Admit Stat 05/21/22 08:00 Consult General Surgery Routine Ordered Studies 05/21/22 01:15 CT abd pelvis IV con only Urgent Laboratory Results WBC 8.98 K/ul (4.8-10.8) 05/22/22 07:53 RBC 4.71 M/uL (4.63-6.08) 05/22/22 07:53 Hgb 15.0 g/dl (14.0-18.0) 05/22/22 07:53 POC Hgb 15.6 g/dl (14.0-18.0) 05/21/22 01:27 Hct 43.6 % (40.1-51.0) 05/22/22 07:53 POC Hct 46 % (42-52) 05/21/22 01:27 MCV 92.6 fL (80.0-100.0) 05/22/22 07:53 MCH 31.8 pg (25.0-34.0) 05/22/22 07:53 MCHC 34.4 g/dL (32.0-36.0) 05/22/22 07:53 RDW Std Deviation 43.4 fL (36.4-46.3) 05/22/22 07:53 RDW Coeff of Trish 12.6 % (11.5-14.5) 05/22/22 07:53 Plt Count 238 K/uL (130-400) 05/22/22 07:53 MPV 9.8 fL (9.4-12.4) 05/22/22 07:53 Immature Gran % (Auto) 0.3 % 05/22/22 07:53 Neut % (Auto) 70.1 % 05/22/22 07:53 Lymph % (Auto) 15.9 % 05/22/22 07:53 Kay % (Auto) 11.6 % 05/22/22 07:53 Eos % (Auto) 1.9 % 05/22/22 07:53 Baso % (Auto) 0.2 % 05/22/22 07:53 Neut # (Auto) 6.29 K/uL (1.4-6.5) 05/22/22 07:53 Lymph # (Auto) 1.43 K/uL (1.2-3.4) 05/22/22 07:53 Kay # (Auto) 1.04 K/uL (0.24-0.82) H 05/22/22 07:53 Eos # (Auto) 0.17 K/uL (0-0.50) 05/22/22 07:53 Baso # (Auto) 0.02 K/uL (0-0.2) 05/22/22 07:53 Immature Gran # (Auto) 0.03 K/uL (0.00-0.02) H 05/22/22 07:53 POC Sodium 140 mmol/L (135-144) 05/21/22 01:27 Sodium 138 mmol/L (136-145) 05/22/22 07:53 POC Potassium 3.4 mmol/L (3.3-5.0) 05/21/22 01:27 Potassium 4.2 mmol/L (3.5-5.1) 05/22/22 07:53 POC Chloride 102 mmol/L (101-112) 05/21/22 01:27 Chloride 107 mmol/L (98-107) 05/22/22 07:53 Carbon Dioxide 28 mmol/L (21-32) 05/22/22 07:53 POC Total CO2 29 mmol/L (24-31) 05/21/22 01:27 Anion Gap 3 (3-11) 05/22/22 07:53 POC Anion Gap 13.0 mmol/L (16-25) L 05/21/22 01:27 POC BUN 22 mg/dl (7-18) H 05/21/22 01:27 BUN 12 mg/dl (6-23) 05/22/22 07:53 Creatinine 1.22 mg/dl (0.6-1.4) 05/22/22 07:53 POC Creatinine 1.5 mg/dl (0.6-1.3) H 05/21/22 01:27 Est Cr Clr Drug Dosing 96.1 ml/min 05/22/22 07:53 Est GFR ( Amer) 81.9 ml/min 05/22/22 07:53 Est GFR (Non-Af Amer) 70.7 ml/min 05/22/22 07:53 BUN/Creatinine Ratio 9.8 (10-20) L 05/22/22 07:53 Glucose 116 mg/dl (70-99(Fasting)) H 05/22/22 07:53 POC Glucose (other) 116 mg/dl (70-99) H 05/21/22 01:27 Lactate 1.7 mmol/L (0.4-2.0) 05/21/22 02:20 Calcium 8.9 mg/dl (8.5-10.1) 05/22/22 07:53 POC Ioniz Calcium Kristi 1.10 mmol/l (1.12-1.32) L 05/21/22 01:27 Total Bilirubin 1.1 mg/dl (0.2-1.0) H 05/21/22 01:22 AST 28 U/L (13-39) 05/21/22 01:22 ALT 39 U/L (7-52) 05/21/22 01:22 Alkaline Phosphatase 54 U/L (34-104) 05/21/22 01:22 Troponin I High Sens 7.0 pg/ml (0-20) 05/21/22 01:22 Total Protein 7.1 gm/dl (6.0-8.3) 05/21/22 01:22 Albumin 4.2 gm/dl (3.4-5.0) 05/21/22 01:22 Globulin 2.9 gm/dl (2.5-4.0) 05/21/22 01:22 Albumin/Globulin Ratio 1.4 (0.9-2) 05/21/22 01:22 Lipase 8 U/L (11-82) L 05/21/22 01:22 Urine Color Yellow 05/21/22 10:00 Urine Appearance Clear (Clear) 05/21/22 10:00 Urine pH 5.5 (4.5-7.5) 05/21/22 10:00 Ur Specific [place] > 1.045 (1.000-1.030) H 05/21/22 10:00 Urine Protein Negative (Negative) 05/21/22 10:00 Urine Glucose (UA) Negative (Negative) 05/21/22 10:00 Urine Ketones Trace (Negative) H 05/21/22 10:00 Urine Blood Negative (Negative) 05/21/22 10:00 Urine Nitrite Negative (Negative) 05/21/22 10:00 Urine Bilirubin Negative (Negative) 05/21/22 10:00 Urine Urobilinogen Negative (Negative) 05/21/22 10:00 Ur Leukocyte Esterase Negative (Negative) 05/21/22 10:00 SARS-CoV-2, RNA, NAAT NEGATIVE (NEGATIVE) 05/21/22 02:06 Impressions Abdomen/Pelvis CT 05/21/22 01:15 CT abd pelvis IV con only CLINICAL HISTORY: severe mid pain TECHNIQUE: Helical axial images of the abdomen and pelvis were obtained and displayed. Automated dose lowering techniques and/or adjustment according to patient size were utilized for this exam. This exam was performed with intravenous contrast. CT DOSE: 669.48 mGy.cm COMPARISON: Comparison is made to CT abdomen pelvis 01/21/2018 FINDINGS: Lower chest: No acute abnormality Liver: Unremarkable. No focal lesions are seen. Gallbladder and biliary tree: No calcified gallstones. Normal caliber wall. No intra- or extrahepatic biliary ductal dilation. Pancreas: Unremarkable, no focal lesions. Spleen: Unremarkable. Adrenals: Unremarkable. Kidneys and ureters: Unremarkable. Bladder: Unremarkable. Reproductive organs: Unremarkable. Bowel: The colon is relatively under distended. There are numerous loops of gas and fluid-filled dilated small bowel measuring up to 32 mm in diameter with wall thickening and surrounding edema. No proximal transition point is seen. A distal transition point is noted in the mid pelvis. Lymph nodes Retroperitoneal: Unremarkable. Pelvic: Unremarkable. Mesenteric: Unremarkable. Peritoneum: A small amount of free fluid is seen about the loops of bowel in the dependent portion of the peritoneum. No pneumoperitoneum is seen. Vessels: Unremarkable. Abdominal wall: Surgical clips are in the right lower quadrant. Bones: Degenerative changes in the visualized spine. Corticated fragments about the anterior superior aspect of L4 are likely chronic. IMPRESSION: Multiple dilated loops of small bowel with a distal transition point, compatible with high-grade small bowel obstruction. Free fluid is seen but there is no pneumoperitoneum. ACT 112: Negative or not required by law. Electronically signed by: Ke Plata M.D. 05/21/2022 9:11 AM KUB X-Ray 05/23/22 08:37 KUB HISTORY: Follow up study in a patient with small bowel obstruction f/u COMPARISON: KUB 05/22/2022, CT 05/21/2022 FINDINGS: Surgical clips again noted within the abdominal right lower quadrant. Persistent small bowel dilation measuring up to approximately 4 cm, previously 4.2 cm. Air is also noted within nondilated loops of large bowel. No renal calculi. No ureteral calculi. No pneumoperitoneum or pneumatosis. Mild lumbar levoscoliosis. No fracture. IMPRESSION: Persistent small bowel obstruction with mildly decreased distention of the small bowel compared to yesterday's study. Continued follow-up recommended. ACT 112: Negative or not required by law. The above report was generated using voice recognition software. It may contain grammatical, syntax or spelling errors. Electronically signed by: Tyrell Bishop M.D. 05/23/2022 10:40 AM Hospital Course (1) Small bowel obstruction: Presented on admission with severe abdominal pain associated with N/V CT abd/pelvis showed Multiple dilated loops of small bowel with a distal transition point, compatible with high-grade small bowel obstruction. KUB showed Persistent small bowel obstruction. Symptoms clinically improves and pt had a multiple BM Tolerated low fiber diet Case discussed with surgery and ok to discharge home Bradycardia: Asymptomatic No further testing recommended Deep venous thrombosis prophylaxis on SCD/ambulating Total Time Total Time Spent Total Time Spent (In Minutes): 35 minutes Discharge Plan Discharge Items Patient Disposition: Home - Self-Care Reason For Visit: ABDOMINAL PAIN Discharge Diagnosis: Small bowel obstruction: Bradycardia: Condition on Discharge: Good Activity: Resume your previous activity Non-emergency contact: Primary Care Provider Call non-emergency contact if: you have any medication questions Follow-up/Referrals: Dominick Baker MD [Primary Care Provider] - (Date & Time 05/27/2022 9:00 AM Provider Dominick Baker MD Department [facility] ) Diet: Low Fiber Diet Comment: Low fiber diet for 1-2 weeks and then slowly increase fiber in diet Madai Attending Provider Instructions: Follow up with your primary care provider on 05/27/2022 at9:00 AM Dominick Baker MD Department [facility] Seek medical attention if your symptoms reoccur or develop any nausea and vomiting [employer]ai [employer] Manager Provider Instructions: Low-fiber diet do's and don'tsBy [facility] Staff [email or web address] Definition Fiber is the part of fruits, vegetables and grains not digested by your body. A low-fiber diet restricts these foods. As a result, the amount of undigested material passing through your large intestine is limited and stool bulk is lessened. A low-fiber diet may be recommended for a number of conditions or situations. It is sometimes called a restricted-fiber diet. Purpose Your doctor may prescribe a low-fiber diet if: * You have narrowing of the bowel due to a tumor or an inflammatory disease * You have had bowel surgery * You are having treatment, such as radiation, that damages or irritates your digestive tract As your digestive system returns to normal, you usually can slowly add more fiber back into your diet. Diet details A low-fiber diet limits the types of vegetables, fruits and grains that you can eat. Occasionally, your doctor also may want you to limit the amount of milk and milk products in your diet. Milk doesn't contain fiber, but it may contribute to discomfort or diarrhea, especially if you're lactose intolerant. The ability to digest food varies from person to person. Depending on your condition and tolerance, your doctor may recommend a diet that is more or less restricted. If you're eating a low-fiber diet, be sure to read food labels. Foods you might not expect such as yogurt, ice cream, cereal and even beverages can have added fiber. Look for foods that have no more than 1-2 grams of fiber in one serving. Avoid these foods and products made with them: * Nuts, seeds, dried fruit and coconut * Whole grains, popcorn, wheat germ and bran * Brown rice, wild rice, oatmeal, granola, shredded wheat, quinoa, bulgur and barley * Dried beans, baked beans, ornelas beans, peas and lentils * [place] peanut butter * Fruits and vegetables except those noted below Choose these foods: * Tender meat, fish and poultry, ham, gamboa, shellfish, and lunch meat * Eggs, tofu and creamy peanut butter * Dairy products if tolerated * White rice and pasta * Baked goods made with refined wheat or rye flour, such as bread, biscuits, pancakes, waffles, bagels, saltines and tesfaye crackers * Hot and cold cereals that have less than 2 grams of dietary fiber in a single serving, such as those made from rice * Canned or well-cooked potatoes, carrots and green beans * Plain tomato sauce * Vegetable and fruit juices * Bananas, melons, applesauce and canned peaches (no skin) * Butter, margarine, oils and salad dressings without seeds A typical menu might look like this: Breakfast * Cornflakes with milk * White toast, creamy peanut butter, jelly * Fruit juice * Coffee Mid-morning snack * Yogurt without seeds * Water or other beverage Noon meal * [place] sandwich on white bread with mayonnaise * Tomato soup * Canned peaches * Milk or other beverage Afternoon snack * Cheese slices * Saltine crackers * Water or other beverage Evening meal * Meat loaf * Mashed potatoes with butter * Cooked carrots * Applesauce * Milk or other beverage Prepare all foods so that they're tender. Good cooking methods include simmering, poaching, stewing, steaming and braising. Baking or microwaving in a covered dish is another option. Keep in mind that you may have fewer bowel movements and smaller stools while you're following a low-fiber diet. To avoid constipation, you may need to drink extra fluids. Drink plenty of water unless your doctor tells you otherwise. Results Eating a low-fiber diet will limit your bowel movements and help ease diarrhea or other symptoms of abdominal conditions, such as abdominal pain. Once your digestive system has returned to normal, you can slowly reintroduce fiber into your diet. Risks Because a low-fiber diet restricts what you can eat, it can be difficult to meet your nutritional needs. You should use a low-fiber diet only as long as directed by your doctor. If you must continue eating this diet for a longer time, consult a registered dietitian to make sure your nutritional needs are being met. Pending Studies at Discharge: No Stand-Alone Forms: My [facility], Smoking Cessation Medications and DC Order Prescriptions: Continued ibuprofen 200 mg Tablet 400 mg PO DIRECTED PRN (Reason: Pain) Discharge Orders: Discharge Order (Routine); Ordered 05/23/22 Ordered By: Kalia Camacho Admission Data Admit Date/Time: 05/21/22 03:26 Attending Provider: Kalia Camacho Admit Provider: Russ Herrera Primary Care Provider: Dominick Baker Other Providers: Ba French ; Sean Rojas ; Yuko Cortez ; Rosi Nick ; Best Hood ; Humberto Alfaro ; Sarah Sanchez ; Carmen Khan ; Cristhian Lobato Jr ; Dhaval Andrade ; Chaitanya Rosenbaum ; Celeste Braden ; Russ Herrera ; Noah Reis
--- NOTE | 2022-05-23 11:32 | Surgery Progress Note ---
Date of Service May 23, 2022 Assessment & Plan (1) Small bowel obstruction: Plan resolved abdominal pain resolved + bowel function no n,v with diet advancement Plan: Okay from surgical standpoint for discharge advised low fiber diet for 1-2 weeks and then regular diet with dietary modification/moderation of high fiber foods Dr. French has seen patient and agrees with above. Admission and Anticipated Discharge Date Admission Date: May 21, 2022 Supervising Physician Co-Signing Physician Notes I have seen and examined the patient personally and agree with above assessment plan. His abdominal pain has resolved. He continues to have bowel function. He is okay for discharge from a surgical standpoint. Please call w ith any questions or concerns. Subjective feeling much better abdominal pain has resolved tolerated regular diet multiple bowel movements no nausea or vomiting Physical Exam Constitutional: WD/WN, vitals as above cooperative and comfortable; no acute distress and not ill appearing Respiratory: normal respiratory effort; no respiratory distress Gastrointestinal (Abdomen): Inspection/Auscultation: abdomen normal to inspection and normal bowel sounds; abdomen not distended Percussion/Palpation: abdomen soft; abdomen nontender, no guarding and abdomen n ot rigid Psychiatric: Orientation: alert and oriented x 3 Results & Data ([facility]) Vital Signs (Past 12 Hours) Vital Signs Temp Pulse Resp BP Pulse Ox O2 Del Method 05/23/22 07:27 36.6 C 59 L 16 159/87 H 97 Room Air
== END 2022-05-23 13:20 | disposition home or self-care (01) | DRG 390 ==
LOC: ED 01:05 → 3W 03:26 → SUATTDRO 03:26 → 3W 04:42
DX: F41.1 Generalized anxiety disorder; R10.9 Unspecified abdominal pain; K56.609 Unspecified intestinal obstruction, unspecified as to partial versus complete obstruction; K58.9 Irritable bowel syndrome, unspecified; F42.8 Other obsessive-compulsive disorder; R00.1 Bradycardia, unspecified

== ENCOUNTER 2022-05-23 18:33 | Inpatient (IN) ==
[2022-05-23] MEDS ORDERED: SODIUM CHLORIDE 0.9% 1000ML 1,000 ML IV ONE (19:26)
[2022-05-23] MEDS ORDERED: MoRPHine SULFATE 4 MG/ML 1 ML CARP\\VIAL IV STA (19:26)
[2022-05-23] MEDS ORDERED: ONDANSETRON INJ 2 MG/ML 2 ML VIAL IV STA (19:26)
--- NOTE | 2022-05-23 19:28 | Emergency Department Note ---
Impression & Plan SBO (small bowel obstruction) ADMIT ED Provider Note HPI: The patient is a 46-year-old male who presents emergency department with chief complaint of mid abdominal pain. Patient was just discharged from the hospital earlier today after a stay for small bowel obstruction resolved without surgical intervention. Patient states he ate a solid breakfast this morning with scrambled eggs and toast and then began to develop some mid abdominal pain with nausea throughout the day. He has not vomited today. Patient states he has 8 out of 10 pain in the mid abdomen on arrival and feels as if his breakfast "is not getting through". On arrival to the ED the patient is hemodynamically stable, he is in no acute distress but is tender to palpation in the area of the mid abdomen ROS: -GI: Abdominal pain, nausea *10 point review systems was conducted and is otherwise negative unless stated above *Outpatient medications and allergy history reviewed PE: General: Alert HEENT: Normocephalic, trachea midline Eyes: Extraocular eye movement is intact, no scleral erythema Pulmonary: Clear to auscultation bilaterally, no wheezing Cardio: Regular rate and rhythm GI: Abdomen is soft, there is tenderness to palpation diffusely, no rigidity : No suprapubic tenderness MSK: No evidence of trauma or malformation of the extremities, no edema Skin: No evidence of rash Neuro: Alert, no focal deficits Psychiatric: Cooperative ekg monitor: - An order was placed for continuous cardiac monitoring - Patient was noted to be in sinus rhythm with a rate of 55 Interventions provided in ED: -IV morphine, IV Zofran, IV fluid bolus Medical Decision Making: Patient presented to the emergency department after being discharged earlier today for small bowel obstruction. Patient states that he attempted to eat food earlier today and became very nauseous, states he does not feel as if the food is "getting through". He has not had any vomiting but he does have fairly significant abdominal pain. IV was established, patient was given IV fluids as well as antiemetics and pain medicine. CT imaging of the abdomen pelvis shows recurrent small bowel obstruction. On my reassessment patient states his pain is improved, his lab work is reassuring, I discussed with him admission versus discharge, recommended admission given CT imaging findings to which the patient was in agreement. [facility] and the patient was admitted in stable condition for further care. We will hold on NG tube at this time given that the patient has not had any vomiting in the ED. patient was in agreement to the above plan he was admitted in stable condition for further care. Diagnosis: 1. Small bowel obstruction 2. Acute abdominal pain 3. Nausea Disposition: ADMIT Sean Colorado DO Emergency Medicine Past Med/Surg History Medical History (Updated 05/23/22 @ 23:26 by Sean Colorado DO) LUIS (generalized anxiety disorder) History of colitis Human papilloma virus IBS (irritable bowel syndrome) OCD (obsessive compulsive disorder) Panic attacks Surgical History (Updated 05/21/22 @ 10:26 by Carmen Khan PA-C) History of colonoscopy History of incisional hernia repair 2020 with mesh History of right inguinal hernia repair Laparoscopic 2018 History of tooth extraction Nausea and vomiting after administration of anesthetic agent S/P orchiopexy Status post scrotal varicocelectomy Social History Smoking Status: Never smoker Second Hand Exposure: No; Hx Alcohol Use: Yes Alcohol type: beer Hx Substance Use: No Preferred Language: Irish Communication Ability: Effective Visual Impairment: No Limitations Clinical Assessment Manager Required: No Beliefs That Will Affect Care: None marital status: Current Living Situation: Family How many Children do You have: 1 Feels Safe at Home: Yes Assistive Devices: None Allergies Allergies Allergy/AdvReac Type Severity Reaction Status Date / Time No Known Allergies Allergy Verified 05/21/22 02:47 Home Meds Home Medications Medication Instructions Recorded Confirmed ibuprofen 200 mg tablet 400 mg PO DIRECTED PRN Pain 05/21/22 05/23/22 Previous Rx's Medication Instructions Recorded oxycodone 5 mg tablet 5 mg PO Q8H PRN pain #10 tabs 05/23/22 Results & Data (ED) Vital Signs Vital Signs - 24 hr 05/23/22 19:05 05/23/22 19:37 05/23/22 22:21 Temperature 36.1 C L Temperature Source Temporal Artery Scan Pulse Rate 77 Pulse Rate [Right Finger] 58 L 50 L Respiratory Rate 20 Respiratory Effort / Characteristics Non-Labored Spontaneous Respiratory Depth Normal Blood Pressure 153/105 H Blood Pressure [Right Arm] 151/82 H Blood Pressure Mean 121 Blood Pressure Mean [Right Arm] 105 Pulse Oximetry 97 99 97 Oxygen Delivery Method Room Air Room Air Room Air Sepsis New/Unexplained Change in Mental Status N/A Sepsis Action Taken by Nursing No Action Required Laboratory Data Result diagrams: 05/23/22 19:29 05/23/22 19:29 Lab Results 05/23/22 05/23/22 05/23/22 Range/Units 19:29 19:29 21:21 WBC 9.47 (4.8-10.8) K/ul RBC 4.70 (4.63-6.08) M/uL Hgb 15.1 (14.0-18.0) g/dl Hct 42.9 (40.1-51.0) % MCV 91.3 (80.0-100.0) fL MCH 32.1 (25.0-34.0) pg MCHC 35.2 (32.0-36.0) g/dL RDW Std Deviation 41.1 (36.4-46.3) fL RDW Coeff of Trish 12.3 (11.5-14.5) % Plt Count 246 (130-400) K/uL MPV 9.7 (9.4-12.4) fL Immature Gran % (Auto) 0.2 % Neut % (Auto) 73.1 % Lymph % (Auto) 12.2 % [place] % (Auto) 12.4 % Eos % (Auto) 1.9 % Baso % (Auto) 0.2 % Neut # (Auto) 6.92 H (1.4-6.5) K/uL Lymph # (Auto) 1.16 L (1.2-3.4) K/uL [place] # (Auto) 1.17 H (0.24-0.82) K/uL Eos # (Auto) 0.18 (0-0.50) K/uL Baso # (Auto) 0.02 (0-0.2) K/uL Immature Gran # (Auto) 0.02 (0.00-0.02) K/uL Sodium 137 (136-145) mmol/L Potassium 3.6 (3.5-5.1) mmol/L Chloride 102 (98-107) mmol/L Carbon Dioxide 26 (21-32) mmol/L Anion Gap 9 (3-11) BUN 11 (6-23) mg/dl Creatinine 1.23 (0.6-1.4) mg/dl Est Cr Clr Drug Dosing 96.0 ml/min Est GFR ( Amer) 81.1 ml/min Est GFR (Non-Af Amer) 70.0 ml/min BUN/Creatinine Ratio 8.9 L (10-20) Glucose 91 (70-99(Fasting)) mg/dl Calcium 9.7 (8.5-10.1) mg/dl Total Bilirubin 1.0 (0.2-1.0) mg/dl AST 21 (13-39) U/L ALT 28 (7-52) U/L Alkaline Phosphatase 54 (34-104) U/L Total Protein 7.4 (6.0-8.3) gm/dl Albumin 4.4 (3.4-5.0) gm/dl Globulin 3.0 (2.5-4.0) gm/dl Albumin/Globulin Ratio 1.5 (0.9-2) Lipase 4 L (11-82) U/L SARS-CoV-2, RNA, NAAT NEGATIVE (NEGATIVE) Administered Medications Discontinued Medications Sodium Chloride (Nss 1000ml) 1,000 mls @ 999 mls/hr IV .Q1H1M ONE Stop: 05/23/22 20:26 Last Infusion: 05/23/22 20:34 Dose: 0 mls/hr Documented By: Admin: 05/23/22 19:31 Dose: 999 mls/hr Documented By: GILES Ioversol (Optiray 350 100ml) 87 ml IV ONCE ONE Stop: 05/23/22 20:40 Last Admin: 05/23/22 20:39 Dose: 87 ml Documented By: CHRIS Morphine Sulfate (Morphine Sulfate 4 Mg/Ml 1 Ml Carp\\Vial) 4 mg IV NOW STA Stop: 05/23/22 19:27 Last Admin: 05/23/22 19:31 Dose: 4 mg Documented By: GILES Ondansetron HCl (Ondansetron Inj 2 Mg/Ml 2 Ml Vial) 4 mg IV NOW STA Stop: 05/23/22 19:27 Last Admin: 05/23/22 19:32 Dose: 4 mg Documented By: GILES Imaging Data Radiologist's Impression: Abdomen/Pelvis CT 05/23/22 19:26 CT abd pelvis IV con only CLINICAL HISTORY: abd pain, recent SBO TECHNIQUE: Helical axial images of the abdomen and pelvis were obtained and displayed. Automated dose lowering techniques and/or adjustment according to patient size were utilized for this exam. This exam was performed with intravenous contrast. CT DOSE: 659.89 mGy.cm COMPARISON: Comparison is made to CT abdomen pelvis 05/21/2022 FINDINGS: Lower chest: Trace right pleural effusion is seen with underlying atelectasis. Liver: Unremarkable. No focal lesions are seen. Gallbladder and biliary tree: Layering radiodense material is seen in the depend ent portion of the likely representing sludge. No intra- or extrahepatic biliary ductal dilation. Pancreas: Unremarkable, no focal lesions. Spleen: Unremarkable. Adrenals: Unremarkable. Kidneys and ureters: Unremarkable. Bladder: Unremarkable. Reproductive organs: Unremarkable. Bowel: Again noted are numerous dilated loops of small bowel. A distal transition point is again seen, although it is less abrupt than in the prior exam.: Remains under distended. Lymph nodes Retroperitoneal: Unremarkable. Pelvic: Unremarkable. Mesenteric: Subcentimeter lymph nodes are noted. Peritoneum: Fat stranding is seen about dilated loops of bowel. There is trace intra-abdominal free fluid. Vessels: Unremarkable. Abdominal wall: Right lower quadrant surgical clips are again seen. Bones: Degenerative changes in the visualized spine. Limbus vertebra is noted at L4. IMPRESSION: 1. Redemonstration of small bowel obstruction which appears overall similar in extent to prior exam, however the distal transition point appears somewhat less well-defined. 2. Interval development of a trace right pleural effusion. ACT 112: Negative or not required by law. Electronically signed by: Ke Plata M.D. 05/23/2022 8:59 PM Discharge Plan Visit Data Chief Complaint: Constipation Stated Complaint: HERE EARLIER TODAY. BOWEL OBSTRUCTION ED Provider: Sean Colorado Discharge Problem: SBO (small bowel obstruction) Forms Stand Alone Forms: My [facility] [place] Prescriptions Prescriptions: No Action ibuprofen 200 mg Tablet 400 mg PO DIRECTED PRN (Reason: Pain) oxycodone 5 mg tablet 5 mg PO Q8H PRN (Reason: pain) Qty: 10 0RF Rx Instructions: please hold for drowsiness and lethargy Referrals Referrals: Dominick Baker MD [Primary Care Provider] -
[2022-05-23 19:38] LABS: Basophils # (auto) 0.02 K/uL (0-0.2); Basophils % (auto) 0.2 %; Eosinophils # (auto) 0.18 K/uL (0-0.50); Eosinophils % (auto) 1.9 %; Hematocrit (blood only) 42.9 % (40.1-51.0); Hemoglobin 15.1 g/dl (14.0-18.0); Immature Granulocytes # (auto) 0.02 K/uL (0.00-0.02); Immature Granulocytes % (auto) 0.2 %; Lymphocytes # (auto) 1.16 K/uL (1.2-3.4); Lymphocytes % (auto) 12.2 %; Mean Corpuscular Hemoglobin 32.1 pg (25.0-34.0); Mean Corpuscular Hgb Conc 35.2 g/dL (32.0-36.0); Mean Corpuscular Volume 91.3 fL (80.0-100.0); Mean Platelet Volume 9.7 fL (9.4-12.4); Monocytes # (auto) 1.17 K/uL (0.24-0.82); Monocytes % (auto) 12.4 %; Neutrophils # (auto) 6.92 K/uL (1.4-6.5); Neutrophils % (auto) 73.1 %; Platelet Count 246 K/uL (130-400); RDW Coefficient of Variation 12.3 % (11.5-14.5); RDW Standard Deviation 41.1 fL (36.4-46.3); White Blood Count 9.47 K/ul (4.8-10.8)
[2022-05-23 20:01] LABS: Albumin Globulin Ratio 1.5 (0.9-2); Albumin Level 4.4 gm/dl (3.4-5.0); BUN Creatinine Ratio 8.9 (10-20); Calcium 9.7 mg/dl (8.5-10.1); Est GFR (African American) 81.1 ml/min; Potassium 3.6 mmol/L (3.5-5.1); Total Protein 7.4 gm/dl (6.0-8.3)
[2022-05-23] MEDS ORDERED: OPTIRAY 350 100ml IV ONE (20:39)
--- NOTE | 2022-05-23 21:02 | CT Scan Report ---
CT abd pelvis IV con only CLINICAL HISTORY: abd pain, recent SBO TECHNIQUE: Helical axial images of the abdomen and pelvis were obtained and displayed. Automated dose lowering techniques and/or adjustment according to patient size were utilized for this exam. This e xam was performed with intravenous contrast. CT DOSE: 659.89 mGy.cm COMPARISON: Comparison is made to CT abdomen pelvis 05/21/2022 FINDINGS: Lower chest: Trace right pleural effusion is seen with underlying atelectasis. Liver: Unremarkable. No focal lesions are seen. Gallbladder and biliary tree: Layering radiodense material is seen in the dependent portion of the [place] representing sludge. No intra- or extrahepatic biliary ductal dilation. Pancreas: Unremarkable, no focal lesions. Spleen: Unremarkable. Adrenals: Unremarkable. Kidneys and ureters: Unremarkable. Bladder: Unremarkable. Reproductive organs: Unremarkable. Bowel: Again noted are numerous dilated loops of small bowel. A distal transition point is again seen , although it is less abrupt than in the prior exam.: Remains under distended. Lymph nodes Retroperitoneal: Unremarkable. Pelvic: Unremarkable. Mesenteric: Subcentimeter lymph nodes are noted. Peritoneum: Fat stranding is seen about dilated loops of bowel. There is trace intra-abdominal free f luid. Vessels: Unremarkable. Abdominal wall: Right lower quadrant surgical clips are again seen. Bones: Degenerative changes in the visualized spine. Limbus vertebra is noted at L4. IMPRESSION: 1. Redemonstration of small bowel obstruction which appears overall similar in extent to prior exam, however the distal transition point appears somewhat less well-defined. 2. Interval development of a trace right pleural effusion. ACT 112: Negative or not required by law. Electronically signed by: Ke Plata M.D. 05/23/2022 8:59 PM
[2022-05-24] MEDS ORDERED: LACTATED RINGER'S 1,000 ML IV ONE (00:31)
--- NOTE | 2022-05-24 00:45 | History & Physical Report ---
Date of Service May 24, 2022 Assessment & Plan (1) SBO (small bowel obstruction): Plan: Persistent symptoms Situational hypertension secondary to discomfort anxietyOCD, not on maintenance meds episodic bradycardia GMF Analgesia, anxiolytic as needed Bowel rest NGT decompression if with emesis Surgery consult Re: Persistent SBO DVT prophylaxis per Lovenox subcu Full code Text document was generated using [employer] voice recognition software. It may contain grammatical or spelling errors. Kindly contact undersigned for clarification of any documentation item in question. History of Present Illness Chief Complaint: Worsening abdominal pain Primary Care Provider: Dominick Baker MD History obtained from patient and records. Medical history significant for anxiety/OCD, IBS, episodic bradycardia. Last confinement May 21-2021 for small bowel obstruction. Patient discharged home yesterday after tolerating low fiber diet. Prior to discharge, patient noted stomach discomfort which he attributed to food he had nights ago. Worsening discomfort at home with nausea symptoms. No emesis. Good bowel movement. No fever, no chills. Patient returned to ER with . 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 Allergies Allergy/AdvReac Type Severity Reaction Status Date / Time No Known Allergies Allergy Verified 05/21/22 02:47 Home Medications Medication Instructions Recorded Confirmed Type ibuprofen 200 mg tablet 400 mg PO DIRECTED PRN Pain 05/21/22 05/23/22 History oxycodone 5 mg tablet 5 mg PO Q8H PRN pain #10 tabs 05/23/22 05/23/22 Rx Past Med/Surg History Medical History (Updated 05/23/22 @ 23:26 by Sean Colorado DO) LUIS (generalized anxiety disorder) History of colitis Human papilloma virus IBS (irritable bowel syndrome) OCD (obsessive compulsive disorder) Panic attacks Surgical History (Updated 05/21/22 @ 10:26 by Carmen Khan PA-C) History of colonoscopy History of incisional hernia repair 2020 with mesh History of right inguinal hernia repair Laparoscopic 2018 History of tooth extraction Nausea and vomiting after administration of anesthetic agent S/P orchiopexy Status post scrotal varicocelectomy Social History Smoking Status: Never smoker Second Hand Exposure: No; Hx Alcohol Use: Yes Alcohol type: beer Hx Substance Use: No Preferred Language: Sinhala Communication Ability: Effective Visual Impairment: No Limitations [employer] Director Required: No Beliefs That Will Affect Care: None marital status: Current Living Situation: Family How many Children do You have: 1 Other Information That Helps Us Care for You: No Feels Safe at Home: Yes Safety Concerns: Feels Safe At This Time Assistive Devices: None Review of Systems Review of Systems: As per HPI, all other systems reviewed and negative Physical Exam Physical Exam: GENERAL: Slightly uncomfortable, slightly anxious, obese, no respiratory distress SKIN: Normal color, warm HEENT: Alopecia, pink palpebral conjunctivae, no ptosis, dry buccal mucosa NECK : Supple, no tenderness CHEST : CTA, no tenderness HEART : Bradycardic, no obvious murmurs ABDOMEN: Some distention, central abdominal tenderness EXTREMITIES : No LE swelling/tenderness, no other conspicuous deformities noted NEUROLOGIC : Coherent, no facial asymmetry, no other gross focality Results & Data Results & Data ([facility]) Vital Signs (Past 12 Hours) Vital Signs Temp Pulse Pulse Resp BP BP Pulse Ox 05/23/22 22:21 50 L 97 05/23/22 19:37 58 L 151/82 H 99 05/23/22 19:05 36.1 C L 77 20 153/105 H 97 O2 Del Method 05/23/22 22:21 Room Air 05/23/22 19:37 Room Air 05/23/22 19:05 Room Air Laboratory Results Laboratory Results WBC 9.47 K/ul (4.8-10.8) 05/23/22 19:29 RBC 4.70 M/uL (4.63-6.08) 05/23/22 19:29 Hgb 15.1 g/dl (14.0-18.0) 05/23/22 19:29 Hct 42.9 % (40.1-51.0) 05/23/22 19:29 MCV 91.3 fL (80.0-100.0) 05/23/22 19:29 MCH 32.1 pg (25.0-34.0) 05/23/22 19:29 MCHC 35.2 g/dL (32.0-36.0) 05/23/22 19:29 RDW Std Deviation 41.1 fL (36.4-46.3) 05/23/22 RDW Coeff of Trish 12.3 % (11.5-14.5) 05/23/22 Plt Count 246 K/uL (130-400) 05/23/22 MPV 9.7 fL (9.4-12.4) 05/23/22 Immature Gran % (Auto) 0.2 % 05/23/22 Neut % (Auto) 73.1 % 05/23/22: Lymph % (Auto) 12.2 % 05/23/22: [place] % (Auto) 12.4 % 05/23/22 Eos % (Auto) 1.9 % 05/23/22 Baso % (Auto) 0.2 % 05/23/22 Neut # (Auto) 6.92 K/uL (1.4-6.5) H 05/23/22 Lymph # (Auto) 1.16 K/uL (1.2-3.4) L 05/23/22 [place] # (Auto) 1.17 K/uL (0.24-0.82) H 05/23/22 Eos # (Auto) 0.18 K/uL (0-0.50) 05/23/22 Baso # (Auto) 0.02 K/uL (0-0.2) 05/23/22 Immature Gran # (Auto) 0.02 K/uL (0.00-0.02) 05/23/22: Sodium 137 mmol/L (136-145) 05/23/22 Potassium 3.6 mmol/L (3.5-5.1) 05/23/22 Chloride 102 mmol/L (98-107) 05/23/22 Carbon Dioxide 26 mmol/L (21-32) 05/23/22 Anion Gap 9 (3-11) 05/23/22: BUN 11 mg/dl (6-23) 05/23/22 Creatinine 1.23 mg/dl (0.6-1.4) 05/23/22 Est Cr Clr Drug Dosing 96.0 ml/min 05/23/22 19: Est GFR ( Amer) 81.1 ml/min 05/23/22 19: Est GFR (Non-Af Amer) 70.0 ml/min 05/23/22 19: BUN/Creatinine Ratio 8.9 (10-20) L 05/23/22 19: Glucose 91 mg/dl (70-99(Fasting)) 05/23/22 19: Calcium 9.7 mg/dl (8.5-10.1) 05/23/22 19: Total Bilirubin 1.0 mg/dl (0.2-1.0) 05/23/22 19: AST 21 U/L (13-39) 05/23/22: ALT 28 U/L (7-52) 05/23/22 19: Alkaline Phosphatase 54 U/L (34-104) 05/23/22 19: Total Protein 7.4 gm/dl (6.0-8.3) 05/23/22 19: Albumin 4.4 gm/dl (3.4-5.0) 05/23/22 19: Globulin 3.0 gm/dl (2.5-4.0) 05/23/22 19: Albumin/Globulin Ratio 1.5 (0.9-2) 05/23/22 19: Lipase 4 U/L (11-82) L 05/23/22 19: SARS-CoV-2, RNA, NAAT NEGATIVE (NEGATIVE) 05/23/22 21:21 Impressions Abdomen/Pelvis CT 05/23/22 19:26 CT abd pelvis IV con only CLINICAL HISTORY: abd pain, recent SBO TECHNIQUE: Helical axial images of the abdomen and pelvis were obtained and displayed. Automated dose lowering techniques and/or adjustment according to patient size were utilized for this exam. This exam was performed with intravenous contrast. CT DOSE: 659.89 mGy.cm COMPARISON: Comparison is made to CT abdomen pelvis 05/21/2022 FINDINGS: Lower chest: Trace right pleural effusion is seen with underlying atelectasis. Liver: Unremarkable. No focal lesions are seen. Gallbladder and biliary tree: Layering radiodense material is seen in the dependent portion of the likely representing sludge. No intra- or extrahepatic biliary ductal dilation. Pancreas: Unremarkable, no focal lesions. Spleen: Unremarkable. Adrenals: Unremarkable. Kidneys and ureters: Unremarkable. Bladder: Unremarkable. Reproductive organs: Unremarkable. Bowel: Again noted are numerous dilated loops of small bowel. A distal transition point is again seen, although it is less abrupt than in the prior exam.: Remains under distended. Lymph nodes Retroperitoneal: Unremarkable. Pelvic: Unremarkable. Mesenteric: Subcentimeter lymph nodes are noted. Peritoneum: Fat stranding is seen about dilated loops of bowel. There is trace intra-abdominal free fluid. Vessels: Unremarkable. Abdominal wall: Right lower quadrant surgical clips are again seen. Bones: Degenerative changes in the visualized spine. Limbus vertebra is noted at L4. IMPRESSION: 1. Redemonstration of small bowel obstruction which appears overall similar in extent to prior exam, however the distal transition point appears somewhat less well-defined. 2. Interval development of a trace right pleural effusion. ACT 112: Negative or not required by law. Electronically signed by: Ke Plata M.D. 05/23/2022 8:59 PM
[2022-05-24] MEDS ORDERED: KETOROLAC TROMETHAMINE 15 MG/ML VIAL IV STA (00:46)
[2022-05-24] MEDS ORDERED: LORazepam 0.5 MG TAB PO PRN (00:49)
[2022-05-24] MEDS ORDERED: ACETAMINOPHEN 325 MG TAB PO PRN (00:49)
[2022-05-24] MEDS ORDERED: traMADol HCL 50 MG TABLET PO PRN (00:49)
[2022-05-24] MEDS ORDERED: PROMETHAZINE 12.5 MG/50.5 ML BAG IV PRN (00:57)
[2022-05-24] MEDS: KETOROLAC TROMETHAMINE 15 MG/ML VIAL IV PRN ×2 (01:48→07:44)
[2022-05-24] MEDS: PROMETHAZINE HCL 12.5 MG in SODIUM CHLORIDE 0.9% 50 ML IV PRN ×3 (01:55→22:04)
--- NOTE | 2022-05-24 02:48 | Surgery Consultation ---
Date of Consultation May 24, 2022 Assessment & Plan (1) Small bowel obstruction: pt is a 46 year-old male who was admitted to hospital for SBO, pt was just discharged yesterday afternoon for SBO, IMP: SBO, Plan, : no emergent surgery indication now, conservative treatment now, NPO, IV fluid, control pain, repeat labs and KUB in morning, may need NG tube if pt's symptoms worse, pt understood, he agrees with the plan, I answered all questions, I will D/W Dr. French, will F/U, History of Present Illness Reason for Consultation: SBO Requesting Physician: Kalia Camacho MD Attending Physician: Kalia Camacho MD History of Present Illness The patient is a 46-year-old male who presents emergency department with chief complaint of mid abdominal pain. Patient was just discharged from the hospital earlier today after a stay for small bowel obstruction resolved without surgical intervention. Patient states he ate a solid breakfast this morning with scrambled eggs and toast and then began to develop some mid abdominal pain with nausea throughout the day. He has not vomited today. Patient states he has 8 out of 10 pain in the mid abdomen on arrival and feels as if his breakfast "is not getting through". On arrival to the ED the patient is hemodynamically st able, he is in no acute distress but is tender to palpation in the area of the mid abdomen I ( Dhaval Andrade MD ) got a call for consult SBO, I reviewed pt's H/P, labs, CT scan with pt, pt feels better, ROS: -GI: Abdominal pain, nausea *10 point review systems was conducted and is otherwise negative unless stated above *Outpatient medications and allergy history reviewed Allergies Allergy/AdvReac Type Severity Reaction Status Date / Time No Known Allergies Allergy Verified 05/21/22 02:47 Home Medications Medication Instructions Recorded Confirmed Type ibuprofen 200 mg tablet 400 mg PO DIRECTED PRN Pain 05/21/22 05/23/22 History oxycodone 5 mg tablet 5 mg PO Q8H PRN pain #10 tabs 05/23/22 05/23/22 Rx Patient History Medical History (Updated 05/23/22 @ 23:26 by Sean Colorado DO) LUIS (generalized anxiety disorder) History of colitis Human papilloma virus IBS (irritable bowel syndrome) OCD (obsessive compulsive disorder) Panic attacks Surgical History (Updated 05/21/22 @ 10:26 by Carmen Khan PA-C) History of colonoscopy History of incisional hernia repair 2020 with mesh History of right inguinal hernia repair Laparoscopic 2018 History of tooth extraction Nausea and vomiting after administration of anesthetic agent S/P orchiopexy Status post scrotal varicocelectomy Social History Smoking Status: Never smoker Second Hand Exposure: No; Hx Alcohol Use: Yes Alcohol type: beer Hx Substance Use: No Preferred Language: Urdu Communication Ability: Effective Visual Impairment: No Limitations Fall Internship Required: No Beliefs That Will Affect Care: None marital status: Current Living Situation: Family How many Children do You have: 1 Other Information That Helps Us Care for You: No Feels Safe at Home: Yes Safety Concerns: Feels Safe At This Time Assistive Devices: None Review of Systems Constitutional: as per Subjective / HPI Eyes: as per Subjective / HPI Ear, Nose, Mouth, Throat: as per Subjective / HPI Respiratory: as per Subjective / HPI Cardiovascular: as per Subjective / HPI Gastrointestinal: incision hernai repair with mesh 2020, laparoscopic repair right inguinal hernia with mesh 2018, IBS, Genitourinary: + as per Subjective / HPI Musculoskeletal: as per Subjective / HPI Neurologic: as per Subjective / HPI Psychiatric: anxiety Endocrine: as per Subjective / HPI Hematologic / Lymphatic: as per Subjective / HPI Physical Exam Constitutional: WD/WN, vitals as above Eyes: PERRL, conjunctivae normal, anicteric sclerae Neck: trachea midline, no thyromegaly Respiratory: normal respiratory effort, lungs clear to auscultation Cardiovascular: RRR, no murmur, no edema Gastrointestinal (Abdomen): soft, mild tenderness periumbilical area, no rebound pain, no distend, BS +, Musculoskeletal: no cyanosis or clubbing, extremities motor strength 5/5 Neurologic: patellar DTR's 2+ bilat, sensation intact Psychiatric: A+Ox3, euthymic affect Results & Data ([place]) Vital Signs (Past 12 Hours) Vital Signs Temp Pulse Pulse Resp BP BP Pulse Ox 05/24/22 01:59 36.9 C 66 16 161/84 H 97 05/24/22 01:38 05/23/22 22:21 50 L 97 05/23/22 19:37 58 L 151/82 H 99 05/23/22 19:05 36.1 C L 77 20 153/105 H 97 O2 Del Method 05/24/22 01:59 Room Air 05/24/22 01:38 Room Air 05/23/22 22:21 Room Air 05/23/22 19:37 Room Air 05/23/22 19:05 Room Air Laboratory Results Abnormal lab results 05/23/22 05/23/22 Range/Units 19:29 19:29 Neut # (Auto) 6.92 H (1.4-6.5) K/uL Lymph # (Auto) 1.16 L (1.2-3.4) K/uL [place] # (Auto) 1.17 H (0.24-0.82) K/uL BUN/Creatinine Ratio 8.9 L (10-20) Lipase 4 L (11-82) U/L Diagnostic Findings CT abd pelvis IV con only CLINICAL HISTORY: abd pain, recent SBO TECHNIQUE: Helical axial images of the abdomen and pelvis were obtained and displayed. Automated dose lowering techniques and/or adjustment according to pat ient size were utilized for this exam. This exam was performed with intravenous contrast. CT DOSE: 659.89 mGy.cm COMPARISON: Comparison is made to CT abdomen pelvis 05/21/2022 FINDINGS: Lower chest: Trace right pleural effusion is seen with underlying atelectasis. Liver: Unremarkable. No focal lesions are seen. Gallbladder and biliary tree: Layering radiodense material is seen in the depen dent portion of the likely representing sludge. No intra- or extrahepatic biliary ductal dilation. Pancreas: Unremarkable, no focal lesions. Spleen: Unremarkable. Adrenals: Unremarkable. Kidneys and ureters: Unremarkable. Bladder: Unremarkable. Reproductive organs: Unremarkable. Bowel: Again noted are numerous dilated loops of small bowel. A distal transition point is again seen, although it is less abrupt than in the prior exam.: Remains under distended. Lymph nodes Retroperitoneal: Unremarkable. Pelvic: Unremarkable. Mesenteric: Subcentimeter lymph nodes are noted. Peritoneum: Fat stranding is seen about dilated loops of bowel. There is trace intra-abdominal free fluid. Vessels: Unremarkable. Abdominal wall: Right lower quadrant surgical clips are again seen. Bones: Degenerative changes in the visualized spine. Limbus vertebra is noted at L4. IMPRESSION: 1. Redemonstration of small bowel obstruction which appears overall similar in extent to prior exam, however the distal transition point appears somewhat less well-defined. 2. Interval development of a trace right pleural effusion. ACT 112: Negative or not required by law.
[2022-05-24] MEDS ORDERED: LACTATED RINGER'S 1,000 ML IV SCH (03:30)
[2022-05-24] MEDS ORDERED: MoRPHine SULFATE 2 MG/ML CARP IV STA (07:56)
[2022-05-24] MEDS ORDERED: MoRPHine SULFATE 2 MG/ML CARP IV PRN ×2 (07:57→17:05)
[2022-05-24 07:59] LABS: Basophils # (auto) 0.01 K/uL (0-0.2); Basophils % (auto) 0.2 %; Eosinophils # (auto) 0.16 K/uL (0-0.50); Eosinophils % (auto) 2.6 %; Hematocrit (blood only) 40.6 % (40.1-51.0); Hemoglobin 14.4 g/dl (14.0-18.0); Immature Granulocytes # (auto) 0.01 K/uL (0.00-0.02); Immature Granulocytes % (auto) 0.2 %; Lymphocytes # (auto) 0.84 K/uL (1.2-3.4); Lymphocytes % (auto) 13.5 %; Mean Corpuscular Hemoglobin 31.8 pg (25.0-34.0); Mean Corpuscular Hgb Conc 35.5 g/dL (32.0-36.0); Mean Corpuscular Volume 89.6 fL (80.0-100.0); Mean Platelet Volume 10.1 fL (9.4-12.4); Monocytes # (auto) 1.13 K/uL (0.24-0.82); Monocytes % (auto) 18.2 %; Neutrophils # (auto) 4.06 K/uL (1.4-6.5); Neutrophils % (auto) 65.3 %; Platelet Count 215 K/uL (130-400); RDW Coefficient of Variation 12.2 % (11.5-14.5); RDW Standard Deviation 40.5 fL (36.4-46.3); Red Blood Count 4.53 M/uL (4.63-6.08); White Blood Count 6.21 K/ul (4.8-10.8)
[2022-05-24] MEDS: ENOXAPARIN INJ 40 MG/0.4 ML SYR SQ SCH (08:11)
[2022-05-24 08:20] LABS: BUN Creatinine Ratio 11.5 (10-20); Calcium 9.2 mg/dl (8.5-10.1); Est GFR (African American) 81.9 ml/min; Est GFR (Non-African American) 70.7 ml/min; Potassium 3.6 mmol/L (3.5-5.1)
[2022-05-24 08:51] LABS: Appearance Urine Clear (Clear); Bacteria Urine Automated Negative (Negative); Blood Urine Negative (Negative); Color Urine Dark Yellow; Glucose Urine UA Negative (Negative); Ketones Urine 3+ (Negative); Leukocyte Esterase Urine Negative (Negative); Nitrite Urine Negative (Negative); Protein Urine Trace (Negative); RBC Urine Automated 0-4 /hpf (0-4); Specific Gravity Urine 1.043 (1.000-1.030); Urobilinogen Urine Negative (Negative); pH Urine 5.5 (4.5-7.5)
[2022-05-24 08:54] LABS: Bilirubin Urine 1+ (Negative)
--- NOTE | 2022-05-24 10:22 | XRay Report ---
XR chest 1V portable HISTORY: Follow-up right pleural effusion COMPARISON: Chest 07/24/2018. FINDINGS: No pneumothorax. No pleural effusions. There are low lung volumes. The cardiac silhouette r emains mildly enlarged. No evidence for pulmonary edema. No focal lung consolidations to suggest a pn eumonia. IMPRESSION: Stable mild cardiomegaly. Otherwise, no acute process within the chest. ACT 112: Negative or not required by law. Electronically signed by: Kurt Weston M.D. 05/24/2022 10:21 AM
[2022-05-24] MEDS ORDERED: ONDANSETRON INJ 2 MG/ML 2 ML VIAL IV PRN ×2 (12:15→17:05)
--- NOTE | 2022-05-24 13:47 | XRay Report ---
KUB HISTORY: Acute generalized abdominal pain Eval SBO COMPARISON: CT and KUB studies 05/23/2022 FINDINGS: Small bowel obstruction redemonstrated with dilated air-filled loops of small bowel measuri ng up to 4.2 cm. Surgical clips within the abdominal right lower quadrant. No significant change from yesterday's exam. Air is also noted within the decompressed large bowel. No renal calculi. No urete ral calculi. No pneumoperitoneum or pneumatosis. No fracture. IMPRESSION: Unchanged appearance of the dilated air-filled loops of small bowel suggestive of persistent obstruct ion. Continued follow-up recommended. ACT 112: Negative or not required by law. The above report was generated using voice recognition software. It may contain grammatical, syntax o r spelling errors. Electronically signed by: Tyrell Bishop M.D. 05/24/2022 1:46 PM
[2022-05-24] MEDS: SODIUM CHLORIDE 0.9% 1000ML 1,000 ML IV SCH (17:42)
--- NOTE | 2022-05-24 23:11 | Communication Note ---
Date of Service: May 24, 2022 Pt was seen and examined for follow up of SBO Sitting in chair with no acute distress with significant others Pt vomiting early this morning He said that his pain control He said that he is passing gas but he has not had a BM denies any chest pain, palpitation and SOB General- No acute distress Head- atraumatic Eyes- PERRL, EOMI, ENT- oropharynx clear Neck- supple, no JVD Lungs- clear to auscultation Heart- regular rhythm; no murmur Abdomen- normal bowel sounds, soft, tenderness with deep palpation Extremities- no calf tenderness Neuro- alert, oriented x 3; PERRL, EOMI; no facial palsy; no dysarthria Skin- warm & dry A/P Small bowel obstruction: Presented on admission with severe abdominal pain associated with N/V CT abd/pelvis showedredemonstration of small bowel obstruction which appears overall similar in extent to prior exam KUB today showed unchanged appearance of the dilated air-filled loops of small bowel suggestive of persistent obstruction. Continued follow-up recommended. Surgery on board recommend conservative management Continue IV fluid an pain control Keep NPO for now Will repeat KUB in am Continue monitor electrolytes Deep venous thrombosis prophylaxis on SCD/ambulating
[2022-05-25] MEDS: SODIUM CHLORIDE 0.9% 1000ML 1,000 ML IV SCH ×3 (03:07→22:10)
--- NOTE | 2022-05-25 05:42 | Surgery Progress Note ---
Date of Service May 25, 2022 Assessment & Plan (1) SBO (small bowel obstruction): Plan: Patient has been admitted on the hospitalist service. We recommend proceeding as follows: KUB has been ordered for this morning which is pending If KUB shows improvement will likely advance diet beginning with clear liquids as patient has had return of bowel function Continue IV fluids until diet can be advanced and oral intake is adequate Plan As per Eliud Lobato physician assistant program director Admission and Anticipated Discharge Date Admission Date: May 24, 2022 Subjective Patient is resting comfortably at bedside. He notes that he had multiple bowel movements in the past 12 hours. He notes that at first they were liquid but they have become more formed. He denies any nausea or vomiting. He denies any abdominal pain at this point in time. Physical Exam Gastrointestinal (Abdomen): Abdomen is soft and nondistended. Bowel sounds are present. Patient has minimal to no pain with palpation. Results & Data ([facility]) Vital Signs (Past 12 Hours) Vital Signs Temp Pulse Resp BP Pulse Ox O2 Del Method 05/24/22 22:59 36.6 C 67 16 145/81 H 97 Room Air PG Care Time/CCT Total # of Minutes Spent Total Time Spent with Patient: Total time spent is greater than 50% in coordination of care (as documented) at patient's floor/unit and/or counseling patient: Coding Level of Care Code 05588 Subseq Hosp Care Lvl 1 Diagnoses SBO (small bowel obstruction) K56.609
[2022-05-25] MEDS: ENOXAPARIN INJ 40 MG/0.4 ML SYR SQ SCH (07:52)
[2022-05-25 08:01] LABS: BUN Creatinine Ratio 13.6 (10-20); Calcium 8.8 mg/dl (8.5-10.1); Creatinine Clr Calc Pharmacy 89.6 ml/min; Est GFR (African American) 74.5 ml/min; Est GFR (Non-African American) 64.2 ml/min; Magnesium 1.9 mg/dl (1.7-2.4); Phosphorus 2.7 mg/dl (2.5-4.9); Potassium 3.6 mmol/L (3.5-5.1)
--- NOTE | 2022-05-25 15:09 | XRay Report ---
XR KUB/Abdomen 1 view CLINICAL HISTORY: f/u , small bowel obstruction TECHNIQUE: 1 view of the abdomen was obtained. Comparison: Comparison is made to abdomen radiograph 05/24/2022 FINDINGS: Surgical clips are in the right lower quadrant. The osseous structures are grossly unremarkable. A si ngle dilated loop of small bowel measuring 33 mm is seen. A moderate amount of stool is noted within the large bowel. IMPRESSION: Significant interval improvement in gas dilated loops of small bowel favoring resolving obstruction. ACT 112: Negative or not required by law. Electronically signed by: Ke Plata M.D. 05/25/2022 3:07 PM
[2022-05-25] MEDS ORDERED: ENOXAPARIN INJ 40 MG/0.4 ML SYR SQ SCH (17:15)
--- NOTE | 2022-05-25 17:31 | Hospitalist Progress Note ---
Date of Service May 25, 2022 Assessment & Plan (1) SBO (small bowel obstruction): Plan: Presented on admission with severe abdominal pain associated with N/V CT abd/pelvis showedredemonstration of small bowel obstruction which appears overall similar in extent to prior exam KUB today showed unchanged appearance of the dilated air-filled loops of small bowel suggestive of persistent obstruction. Continued follow-up recommended. KUB today showed Significant interval improvement in gas dilated loops of small bowel favoring resolving obstruct Surgery on board recommend conservative management Continue IV fluid an pain control starting on clear liquid diet Continue monitor electrolytes Clinically improved significantly Elevated BP Possible related to hospital setting Will add hydralazine prn Continue monitor BP Deep venous thrombosis prophylaxis on Lovenox Full code T Admission and Anticipated Discharge Date Admission Date: May 24, 2022 Subjective Pt was seen and examined for follow up of SOB Sitting in chair with no acute distress Pt said that he had multiple bowel movement denies any chest pain, palpitation, dizziness and SOB Review of Systems Review of Systems: All systems reviewed & are unremarkable except as noted in Subjective Physical Exam Physical Exam: General- No acute distress Head- atraumatic Eyes- PERRL, EOMI, ENT- oropharynx clear Neck- supple, no JVD Lungs- clear to auscultation Heart- regular rhythm; no murmur Abdomen- normal bowel sounds, soft, nontender Extremities- no calf tenderness Neuro- alert, oriented x 3; PERRL, EOMI; no facial palsy; no dysarthria Skin- warm & dry Results & Data Results & Data ([facility]) Vital Signs (Past 12 Hours) Vital Signs Temp Pulse Resp BP Pulse Ox O2 Del Method 05/25/22 16:54 179/108 H 05/25/22 16:57 36.4 C L 64 16 179/117 H 99 Room Air 05/25/22 07:51 36.6 C 68 16 150/84 H 97 Room Air
[2022-05-25] MEDS ORDERED: hydrALAZINE HCL 20 MG/ML VIAL IV PRN (17:32)
--- NOTE | 2022-05-26 05:11 | Surgery Progress Note ---
Date of Service May 26, 2022 Assessment & Plan (1) SBO (small bowel obstruction): Plan: Patient has been admitted on the hospitalist service. We recommend proceeding as follows: KUB on 05/25/2022 showed resolving small bowel obstruction Consideration can be given to advancing diet further and if tolerated patient can be discharged home Continue IV fluids until certain oral intake is adequate Plan As per Eliud Lobato physician nurses medical assistants phlebotomists Admission and Anticipated Discharge Date Admission Date: May 24, 2022 Supervising Physician Co-Signing Physician Notes As per Eliud Lobato physician nurses medical assistants phlebotomists This morning I spent 20 minutes with the patient talking to him about bowel obstructions indications for surgery and medical management The patient is concerned that this is going to keep going He would like to try more solid food he states he started with liquid and noticed that he has some discomfort but he feels that he can tolerate some solid foods I advised him I will start him on low fiber diet that he can choose what he likes He may benefit from a upper GI with small bowel follow-through for further work- up I did mention to him that this is a recurrent problem depending on the timeframe we may consider surgery All question answered described Went over the KUB that he had yesterday indicating that resolution of the bowel obstruction I would keep him here today not ready for discharge make sure that he tolerates diet Subjective Patient is resting in bed and feels comfortable. He notes some minor abdominal soreness. He denies any nausea or vomiting. He is tolerating clear liquids without difficulty. He notes that he is having loose bowel movements. Physical Exam Gastrointestinal (Abdomen): Abdomen is soft, nondistended, and relatively nontender to palpation. Bowel sounds are present. Results & Data ([facility]) Vital Signs (Past 12 Hours) Vital Signs Temp Pulse Resp BP Pulse Ox O2 Del Method 05/25/22 21:40 Room Air 05/25/22 21:39 36.3 C L 56 L 18 137/76 99 Room Air 05/25/22 17:40 159/83 H PG Care Time/CCT Total # of Minutes Spent Total Time Spent with Patient: Total time spent is greater than 50% in coordination of care (as documented) at patient's floor/unit and/or counseling patient: Coding Level of Care Code 34315 Subseq Hosp Care Lvl 1 Diagnoses SBO (small bowel obstruction) K56.609
--- NOTE | 2022-05-26 07:13 | Electrocardiogram Report ---
Test Reason : Blood Pressure : / mmHG Vent. Rate : 057 BPM Atrial Rate : 057 BPM P-R Int : 170 ms QRS Dur : 108 ms QT Int : 438 ms P-R-T Axes : 000 144 -75 degrees QTc Int : 426 ms Possible limb lead reversal Sinus bradycardia Incomplete right bundle branch block Left posterior fascicular block Abnormal ECG When compared with ECG of 21-MAY-2022 01:16, Nonspecific T wave abnormality now evident in Inferior leads Confirmed by Mumtaz Murray ([id number]) on 05/26/2022 7:12:39 AM Referred By: REFERRED SELF Confirmed By:Jaquan Murray
--- NOTE | 2022-05-27 09:42 | Discharge Summary ---
Date of Service May 26, 2022 Admission HPI Per Admitting Provider History obtained from patient and records. Medical history significant for anxiety/OCD, IBS, episodic bradycardia. Last confinement May [id number] for small bowel obstruction. Patient discharged home yesterday after tolerating low fiber diet. Prior to discharge, patient noted stomach discomfort which he attributed to food he had nights ago. Worsening discomfort at home with nausea symptoms. No emesis. Good bowel movement. No fever, no chills. Patient returned to ER with . 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, [employer] Admission Exam Per Admitting Provider Chief Complaint: Worsening abdominal pain Primary Care Provider: Dominick Baker MD History obtained from patient and records. Medical history significant for anxiety/OCD, IBS, episodic bradycardia. Last confinement May 212021 for small bowel obstruction. Patient discharged home yesterday after tolerating low fiber diet. Prior to discharge, patient noted stomach discomfort which he attributed to food he had nights ago. Worsening discomfort at home with nausea symptoms. No emesis. Good bowel movement. No fever, no chills. Patient returned to ER with . Principal Diagnosis SBO (small bowel obstruction): Elevated Blood pressure Discharge Exam General- No acute distress Head- atraumatic Eyes- PERRL, EOMI, ENT- oropharynx clear Neck- supple, no JVD Lungs- clear to auscultation Heart- regular rhythm; no murmur Abdomen- normal bowel sounds, soft, nontender Extremities- no calf tenderness Neuro- alert, oriented x 3; PERRL, EOMI; no facial palsy; no dysarthria Skin- warm & dry Discharge Data Allergies Allergy/AdvReac Type Severity Reaction Status Date / Time No Known Allergies Allergy Verified 05/21/22 02:47 Consultations 05/23/22 21:51 ED Decision to Admit Stat 05/24/22 01:38 Consult General Surgery Routine Ordered Studies 05/23/22 19:26 CT abd pelvis IV con only Stat Laboratory Results WBC 6.21 K/ul (4.8-10.8) 05/24/22 07:20 RBC 4.53 M/uL (4.63-6.08) L 05/24/22 07:20 Hgb 14.4 g/dl (14.0-18.0) 05/24/22 07:20 Hct 40.6 % (40.1-51.0) 05/24/22 07:20 MCV 89.6 fL (80.0-100.0) 05/24/22 07:20 MCH 31.8 pg (25.0-34.0) 05/24/22 07:20 MCHC 35.5 g/dL (32.0-36.0) 05/24/22 07:20 RDW Std Deviation 40.5 fL (36.4-46.3) 05/24/22 07:20 RDW Coeff of Trish 12.2 % (11.5-14.5) 05/24/22 07:20 Plt Count 215 K/uL (130-400) 05/24/22 07:20 MPV 10.1 fL (9.4-12.4) 05/24/22 07:20 Immature Gran % (Auto) 0.2 % 05/24/22 07:20 Neut % (Auto) 65.3 % 05/24/22 07:20 Lymph % (Auto) 13.5 % 05/24/22 07:20 [place] % (Auto) 18.2 % 05/24/22 07:20 Eos % (Auto) 2.6 % 05/24/22 07:20 Baso % (Auto) 0.2 % 05/24/22 07:20 Neut # (Auto) 4.06 K/uL (1.4-6.5) 05/24/22 07:20 Lymph # (Auto) 0.84 K/uL (1.2-3.4) L 05/24/22 07:20 [place] # (Auto) 1.13 K/uL (0.24-0.82) H 05/24/22 07:20 Eos # (Auto) 0.16 K/uL (0-0.50) 05/24/22 07:20 Baso # (Auto) 0.01 K/uL (0-0.2) 05/24/22 07:20 Immature Gran # (Auto) 0.01 K/uL (0.00-0.02) 05/24/22 07:20 Sodium 138 mmol/L (136-145) 05/25/22 06:58 Potassium 3.6 mmol/L (3.5-5.1) 05/25/22 06:58 Chloride 106 mmol/L (98-107) 05/25/22 06:58 Carbon Dioxide 24 mmol/L (21-32) 05/25/22 06:58 Anion Gap 8 (3-11) 05/25/22 06:58 BUN 18 mg/dl (6-23) 05/25/22 06:58 Creatinine 1.32 mg/dl (0.6-1.4) 05/25/22 06:58 Est Cr Clr Drug Dosing 89.6 ml/min 05/25/22 06:58 Est GFR ( Amer) 74.5 ml/min 05/25/22 06:58 Est GFR (Non-Af Amer) 64.2 ml/min 05/25/22 06:58 BUN/Creatinine Ratio 13.6 (10-20) 05/25/22 06:58 Glucose 76 mg/dl (70-99(Fasting)) 05/25/22 06:58 Calcium 8.8 mg/dl (8.5-10.1) 05/25/22 06:58 Phosphorus 2.7 mg/dl (2.5-4.9) 05/25/22 06:58 Magnesium 1.9 mg/dl (1.7-2.4) 05/25/22 06:58 Total Bilirubin 1.0 mg/dl (0.2-1.0) 05/23/22 19:29 AST 21 U/L (13-39) 05/23/22 19:29 ALT 28 U/L (7-52) 05/23/22 19:29 Alkaline Phosphatase 54 U/L (34-104) 05/23/22 19:29 Troponin I High Sens 18.9 pg/ml (0-20) D 05/25/22 19:53 Total Protein 7.4 gm/dl (6.0-8.3) 05/23/22 19:29 Albumin 4.4 gm/dl (3.4-5.0) 05/23/22 19:29 Globulin 3.0 gm/dl (2.5-4.0) 05/23/22 19:29 Albumin/Globulin Ratio 1.5 (0.9-2) 05/23/22 19:29 Lipase 4 U/L (11-82) L 05/23/22 19:29 TSH 1.352 uIu/ml (0.300-4.500) 05/24/22 07:20 Urine Color Dark Yellow 05/24/22 08:32 Urine Appearance Clear (Clear) 05/24/22 08:32 Urine pH 5.5 (4.5-7.5) 05/24/22 08:32 Ur Specific [place] 1.043 (1.000-1.030) H 05/24/22 08:32 Urine Protein Trace (Negative) H 05/24/22 08:32 Urine Glucose (UA) Negative (Negative) 05/24/22 08:32 Urine Ketones 3+ (Negative) H 05/24/22 08:32 Urine Blood Negative (Negative) 05/24/22 08:32 Urine Nitrite Negative (Negative) 05/24/22 08:32 Urine Bilirubin 1+ (Negative) H 05/24/22 08:32 Urine Urobilinogen Negative (Negative) 05/24/22 08:32 Ur Leukocyte Esterase Negative (Negative) 05/24/22 08:32 Urine WBC (Auto) 1-5 /hpf (0-5) 05/24/22 08:32 Urine RBC (Auto) 0-4 /hpf (0-4) 05/24/22 08:32 U Hyaline Cast (Auto) 5-10 /lpf (0-5) H 05/24/22 08:32 U Epithel Cells (Auto) 10-20 /lpf (0-5) H 05/24/22 08:32 Urine Bacteria (Auto) Negative (Negative) 05/24/22 08:32 SARS-CoV-2, RNA, NAAT NEGATIVE (NEGATIVE) 05/23/22 21:21 Impressions Abdomen/Pelvis CT 05/23/22 19:26 CT abd pelvis IV con only CLINICAL HISTORY: abd pain, recent SBO TECHNIQUE: Helical axial images of the abdomen and pelvis were obtained and displayed. Automated dose lowering techniques and/or adjustment according to patient size were utilized for this exam. This exam was performed with intravenous contrast. CT DOSE: 659.89 mGy.cm COMPARISON: Comparison is made to CT abdomen pelvis 05/21/2022 FINDINGS: Lower chest: Trace right pleural effusion is seen with underlying atelectasis. Liver: Unremarkable. No focal lesions are seen. Gallbladder and biliary tree: Layering radiodense material is seen in the dependent portion of the likely representing sludge. No intra- or extrahepatic biliary ductal dilation. Pancreas: Unremarkable, no focal lesions. Spleen: Unremarkable. Adrenals: Unremarkable. Kidneys and ureters: Unremarkable. Bladder: Unremarkable. Reproductive organs: Unremarkable. Bowel: Again noted are numerous dilated loops of small bowel. A distal transition point is again seen, although it is less abrupt than in the prior exam.: Remains under distended. Lymph nodes Retroperitoneal: Unremarkable. Pelvic: Unremarkable. Mesenteric: Subcentimeter lymph nodes are noted. Peritoneum: Fat stranding is seen about dilated loops of bowel. There is trace intra-abdominal free fluid. Vessels: Unremarkable. Abdominal wall: Right lower quadrant surgical clips are again seen. Bones: Degenerative changes in the visualized spine. Limbus vertebra is noted at L4. IMPRESSION: 1. Redemonstration of small bowel obstruction which appears overall similar in extent to prior exam, however the distal transition point appears somewhat less well-defined. 2. Interval development of a trace right pleural effusion. ACT 112: Negative or not required by law. Electronically signed by: Ke Plata M.D. 05/23/2022 8:59 PM Chest X-Ray 05/23/22 21:53 XR chest 1V portable HISTORY: Follow-up right pleural effusion COMPARISON: Chest 07/24/2018. FINDINGS: No pneumothorax. No pleural effusions. There are low lung volumes. The cardiac silhouette remains mildly enlarged. No evidence for pulmonary edema. No focal lung consolidations to suggest a pneumonia. IMPRESSION: Stable mild cardiomegaly. Otherwise, no acute process within the chest. ACT 112: Negative or not required by law. Electronically signed by: Kurt Weston M.D. 05/24/2022 10:21 AM KUB X-Ray 05/25/22 08:00 XR KUB/Abdomen 1 view CLINICAL HISTORY: f/u , small bowel obstruction TECHNIQUE: 1 view of the abdomen was obtained. Comparison: Comparison is made to abdomen radiograph 05/24/2022 FINDINGS: Surgical clips are in the right lower quadrant. The osseous structures are grossly unremarkable. A single dilated loop of small bowel measuring 33 mm is seen. A moderate amount of stool is noted within the large bowel. IMPRESSION: Significant interval improvement in gas dilated loops of small bowel favoring resolving obstruction. ACT 112: Negative or not required by law. Electronically signed by: Ke Plata M.D. 05/25/2022 3:07 PM Hospital Course (1) SBO (small bowel obstruction): Presented on admission with severe abdominal pain associated with N/V CT abd/pelvis showedredemonstration of small bowel obstruction which appears overall similar in extent to prior exam KUB today showed unchanged appearance of the dilated air-filled loops of small bowel suggestive of persistent obstruction. Continued follow-up recommended. KUB today showed Significant interval improvement in gas dilated loops of small bowel favoring resolving obstruct Surgery on board recommend conservative management Continue pain control case discussed with surgery Dr. Handy that recommended to transition to low fiber as per surgery if pt continues to have SOB, he might require surgery Diet advanced as tolerated to low fiber He has been walking around Clinically improved significantly Ok from surgery standpoint to discharge home Follow up with PCP and surgery Elevated BP Possible related to hospital setting Continue monitor BP Pt was advised to bring BP log to his next appt Deep venous thrombosis prophylaxis on Lovenox Full code Total Time Total Time Spent Total Time Spent (In Minutes): 35 minutes Discharge Plan Discharge Items Patient Disposition: Home - Self-Care Reason For Visit: SBO Discharge Diagnosis: SBO (small bowel obstruction): Elevated Blood pressure Activity: Resume your previous activity Non-emergency contact: Primary Care Provider and Surgeon Call non-emergency contact if: you have any medication questions Follow-up/Referrals: Dominick Baker MD [Primary Care Provider] - Diet: Low Fiber Addtl Attending Provider Instructions: Follow up with your primary care provider on 05/27/2022 at9:00 AM Dominick Baker MD Department Family Practice [facility] Follow up up with [facility] surgery outpatient Continue monitor your blood pressure and bring your blood pressure log at your next follow up appointment with your provider Seek medical attention if your symptoms reoccur or develop any abdominal pain, nausea and vomiting Pending Studies at Discharge: No Stand-Alone Forms: My [employer], Smoking Cessation Medications and DC Order Prescriptions: Continued ibuprofen 200 mg Tablet 400 mg PO DIRECTED PRN (Reason: Pain) oxycodone 5 mg tablet 5 mg PO Q8H PRN (Reason: pain) Qty: 10 0RF Rx Instructions: please hold for drowsiness and lethargy Discharge Orders: Discharge Order (Routine); Ordered 05/26/22 Ordered By: Kalia Camacho Admission Data Admit Date/Time: 05/24/22 00:46 Attending Provider: Kalia Camacho Admit Provider: Mason Arroyo Primary Care Provider: Dominick Baker Other Providers: Mason Arroyo ; Ba French ; Sean Rojas ; Yuko Cortez ; Rosi Nick ; Best Hood ; Humberto Alfaro ; Sarah Sanchez ; Carmen Khan ; Cristhian Lobato Jr ; Dhaval Andrade ; Chaitanya Rosenbaum ; Celeste Braden Other Interventions: Discharge Summary Assessment (RN) Last Done: 05/26/22 15:06
== END 2022-05-26 17:19 | disposition home or self-care (01) | DRG 390 ==
LOC: ED 18:33 → 3W 05-24 00:46

== ENCOUNTER 2024-03-01 22:43 | Inpatient (IN) ==
[2024-03-01 23:44] LABS: Appearance Urine Cloudy (Clear); Bacteria Urine Automated None Seen (None Seen); Bilirubin Urine Negative (Negative); Blood Urine Negative (Negative); Cast Urine Automated 0-2 /lpf (0-2); Color Urine Dark Yellow; Epithelial Cell Urine Auto 0-2 /hpf (0-2); Glucose Urine UA Negative (Negative); Ketones Urine 1+ (Negative); Leukocyte Esterase Urine Negative (Negative); Nitrite Urine Negative (Negative); Protein Urine Trace (Negative); RBC Urine Automated 0-2 /hpf (0-2); Specific Gravity Urine 1.039 (1.000-1.030); Urobilinogen Urine Negative (Negative); WBC Urine Automated 0-5 /hpf (0-5)
--- NOTE | 2024-03-01 23:44 | Emergency Department Note ---
Impression & Plan SBO (small bowel obstruction), Abdominal pain ED Provider Note CHIEF COMPLAINT: Abdominal pain x 8 hours HISTORY OF PRESENT ILLNESS: This 48-year-old male patient presents to the emergency department via private vehicle for evaluation of abdominal pain which has been ongoing for about 8 hours. The patient reports a history of small bowel obstruction with similar symptoms. He states he has had upper abdominal pain which radiates across the upper portion of his abdomen which started about 330 this afternoon after having a small bowel movement. He states he did have a softer than usual bowel movement at about 1130 this morning. He notes that up until lunch, he was eating and drinking normally, but has not had much to eat or drink since about 330 this afternoon. The patient states there was 1 episode of nausea and he had a wave of what he believed to be a hypertensive episode in his neck earlier in the day. Patient denies any dysuria, urinary frequency, urinary hesitancy, hematuria. No vomiting. He has not taken any medication for his pain. He has not had a fever. He is not currently on narcotic analgesics. Pt. declines any history of abdominal surgeries. REVIEW OF SYSTEMS: A 10 system review of systems was performed with positives and pertinent negatives listed in the history of present illness. All other systems were reviewed and are negative. ALLERGIES: NKDA PHYSICAL EXAM: VITALS: Vitals are noted on the nurse's note and reviewed by myself. Vital signs stable. GENERAL: This is a 48-year-old male, in no acute distress, nondiaphoretic, well- developed well-nourished. SKIN: The skin was without rashes, erythema, edema, or bruising. There is no tenting of the skin. Capillary refill less than 2 seconds. HEAD: Normocephalic atraumatic. EYES: Conjunctivae without injection, sclerae without icterus. NECK: Supple without nuchal rigidity. No lymphadenopathy. Cervical spine is nontender. No JVD. HEART: Regular rate and rhythm without murmurs gallops or rubs. LUNGS: Clear to auscultation bilaterally without wheezes, rales or rhonchi. No retractions or accessory muscle use. ABDOMEN: Positive bowel sounds x 4. Right upper quadrant tenderness to palpation. Abdomen is otherwise soft, nontender, without masses or organomegaly. Coe sign negative. No guarding or rebound tenderness. MUSCULOSKELETAL: No muscle atrophy, erythema, or edema noted. Full range of motion without joint tenderness in all extremities. No tenderness to palpation. Normal gait. Strength 5/5 throughout. NEURO: Patient was alert and oriented to person place and time. No focal neurological deficits. 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 The monitor showed a normal sinus rhythm at a ventricular rate of 60 bpm, per my interpretation. Imaging as interpreted by myself and the radiologist revealed small bowel obstruction, with radiologist interpretation as above. I agree with the radiologist's findings as based upon my independent interpretation. EMERGENCY DEPARTMENT COURSE: The patient was seen and evaluated as above. The patient presents for abdominal pain and concern for possible small bowel obstruction. Patient does have a history of small bowel obstruction and states his pain presented similarly with his small bowel obstruction about a year ago. IV access was obtained, labs were drawn. Patient was medicated with IV fluids. He was offered analgesics and declined. Patient does have a mild leukocytosis of 11.64. No anemia or thrombocytopenia. Renal, hepatic function and electrolytes without significant abnormality. Lactic acid 0.9. Lipase 7. Negative for blood or evidence of infection. CT imaging was completed and reviewed by myself and radiologist as noted. This was concerning for small bowel obstruction. Patient was updated. He notes worsening abdominal pain as well as nausea and 1 episode of vomiting. He was medicated with morphine and Zofran. Discussed case with my attending physician I discussed the case with the manager business. I discussed the case with Dr. Arroyo, [facility] hospitalist physician. Please see his dictation regarding ongoing management care of this patient. I attest that I have personally reviewed the patient medication list. I attest that I have reviewed the patient's blood pressure and it was found to be elevated. Further management by hospitalist GCS: 15 In the evaluation and treatment of this patient the following differential diagnoses were entertained: appendicitis, diverticulitis, obstruction, inflammatory bowel disease, renal colic, PUD, biliary pathology, pancreatitis, mesenteric ischemia, aortic pathology, infections, genitourinary, UTI, perforated viscus, as well as others were entertained. The chart was completed utilizing [employer] voice recognition software. Grammatical errors, random word insertions, pronoun errors, and incomplete sentences are an occasional consequence of this system due to software limitations, ambient noise, and hardware issues. Any formal questions or concerns about the content, text, or information contained within the body of this dictation should be directly addressed to the provider for clarification. 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--far right lateral per MRI 08/08/2023 Lumbar radiculopathy Right leg paresthesias SBO (small bowel obstruction) (Acute) Encounter for pre-operative examination Medical History Small bowel obstruction IBS (irritable bowel syndrome) Panic attacks OCD (obsessive compulsive disorder) LUIS (generalized anxiety disorder) Human papilloma virus History of colitis Surgical History History of incisional hernia repair 2020 with mesh History of right inguinal hernia repair Laparoscopic 2018 Status post scrotal varicocelectomy S/P orchiopexy Nausea and vomiting after administration of anesthetic agent History of tooth extraction History of colonoscopy Social History Smoking Status: Never smoker Second Hand Exposure: No; Do You Dip or Chew Tobacco: No; Hx Alcohol Use: Yes Alcohol type: beer Hx Substance Use: No Preferred Language: Swedish Communication Ability: Effective Visual Impairment: No Limitations Manager Transfer Required: No Beliefs That Will Affect Care: None marital status: Current Living Situation: Family How many Children do You have: 1 Feels Safe at Home: Yes Assistive Devices: None Allergies Allergies Allergy/AdvReac Type Severity Reaction Status Date / Time No Known Allergies Allergy Verified 03/01/24 23:36 Home Meds Home Medications Medication Instructions Recorded Confirmed No Known Home Medications 03/01/24 03/01/24 Results & Data (ED) Vital Signs Vital Signs - 24 hr 03/01/24 22:52 03/02/24 00:40 03/02/24 00:42 Temperature 36.7 C Temperature Source Temporal Artery Scan Pulse Rate 68 57 L 56 L Pulse Rate from SpO2 Sensor Respiratory Rate 16 16 Respiratory Effort / Characteristics Non-Labored Respiratory Depth Normal Respiratory Pattern Regular Blood Pressure 143/98 H 146/96 H Blood Pressure Mean 113 112 Pulse Oximetry 97 97 Oxygen Delivery Method Room Air Room Air Sepsis Recent Fever Within 48 Hours No Sepsis New/Unexplained Change in Mental Status N/A Sepsis Action Taken by Nursing No Action Required 03/02/24 00:51 03/02/24 01:00 03/02/24 01:30 Temperature Temperature Source Pulse Rate 58 L 59 L 62 Pulse Rate from SpO2 Sensor 58 L 59 L 57 L Respiratory Rate 19 18 15 Respiratory Effort / Characteristics Respiratory Depth Respiratory Pattern Blood Pressure 149/88 H 144/95 H Blood Pressure Mean 117 111 Pulse Oximetry 95 98 97 Oxygen Delivery Method Room Air Room Air Room Air Sepsis Recent Fever Within 48 Hours Sepsis New/Unexplained Change in Mental Status Sepsis Action Taken by Nursing 03/02/24 02:00 03/02/24 02:33 03/02/24 03:00 Temperature Temperature Source Pulse Rate 60 Pulse Rate from SpO2 Sensor 58 L 52 L 52 L Respiratory Rate 16 16 15 Respiratory Effort / Characteristics Respiratory Depth Respiratory Pattern Blood Pressure 149/101 H Blood Pressure Mean 117 Pulse Oximetry 100 92 95 Oxygen Delivery Method Room Air Room Air Room Air Sepsis Recent Fever Within 48 Hours Sepsis New/Unexplained Change in Mental Status Sepsis Action Taken by Nursing 03/02/24 03:39 Temperature Temperature Source Pulse Rate Pulse Rate from SpO2 Sensor 52 L Respiratory Rate 16 Respiratory Effort / Characteristics Respiratory Depth Respiratory Pattern Blood Pressure Blood Pressure Mean Pulse Oximetry 96 Oxygen Delivery Method Room Air Sepsis Recent Fever Within 48 Hours Sepsis New/Unexplained Change in Mental Status Sepsis Action Taken by Nursing Laboratory Data 03/01/24 23:20 03/01/24 23:20 Lab Results 03/01/24 03/02/24 Range/Units 23:20 00:12 WBC 11.64 H (4.8-10.8) K/ul RBC 5.12 (4.70-6.10) M/uL Hgb 15.9 (14.0-18.0) g/dl Hct 45.7 (42.0-52.0) % MCV 89.3 (80.0-100.0) fL MCH 31.1 (25.0-34.0) pg MCHC 34.8 (32.0-36.0) g/dL RDW Std Deviation 43.8 (36.4-46.3) fL RDW Coeff of Trish 13.4 (11.5-14.5) % Plt Count 265 (130-400) K/uL MPV 9.8 (9.4-12.4) fL Immature Gran % (Auto) 0.3 % Neut % (Auto) 74.5 % Lymph % (Auto) 15.4 % [place] % (Auto) 8.2 % Eos % (Auto) 1.3 % Baso % (Auto) 0.3 % Neut # (Auto) 8.69 H (1.40-6.50) K/uL Lymph # (Auto) 1.79 (1.20-3.40) K/uL [place] # (Auto) 0.95 H (0.11-0.59) K/uL Eos # (Auto) 0.15 (0.00-0.50) K/uL Baso # (Auto) 0.03 (0.00-0.20) K/uL Immature Gran # (Auto) 0.03 (0.01-0.20) K/uL Sodium 142 (136-145) mmol/L Potassium 4.1 (3.5-5.1) mmol/L Chloride 107 (98-107) mmol/L Carbon Dioxide 29 (21-32) mmol/L Anion Gap 6 (3-11) BUN 22 (6-23) mg/dl Creatinine 1.30 (0.6-1.4) mg/dl Est Cr Clr Drug Dosing 87.4 ml/min Est GFR ( Amer) 74.8 ml/min Est GFR (Non-Af Amer) 64.5 ml/min BUN/Creatinine Ratio 16.9 (10-20) Glucose 99 (70-99(Fasting)) mg/dl Lactate 0.9 (0.4-2.0) mmol/L Calcium 9.9 (8.6-10.3) mg/dl Magnesium 2.2 (1.7-2.4) mg/dl Total Bilirubin 0.8 (0.2-1.0) mg/dl AST 24 (13-39) U/L ALT 23 (7-52) U/L Alkaline Phosphatase 59 (34-104) U/L Total Protein 8.0 (6.0-8.3) gm/dl Albumin 5.1 H (3.4-5.0) gm/dl Globulin 2.9 (2.5-4.0) gm/dl Albumin/Globulin Ratio 1.8 (0.9-2) Lipase 7 L (11-82) U/L Urine Color Dark Yellow Urine Appearance Cloudy A (Clear) Urine pH 5.0 (4.5-7.5) Ur Specific [place] 1.039 H (1.000-1.030) Urine Protein Trace H (Negative) Urine Glucose (UA) Negative (Negative) Urine Ketones 1+ H (Negative) Urine Blood Negative (Negative) Urine Nitrite Negative (Negative) Urine Bilirubin Negative (Negative) Urine Urobilinogen Negative (Negative) Ur Leukocyte Esterase Negative (Negative) Urine WBC (Auto) 0-5 (0-5) /hpf Urine RBC (Auto) 0-2 (0-2) /hpf U Hyaline Cast (Auto) 0-2 (0-2) /lpf U Epithel Cells (Auto) 0-2 (0-2) /hpf Urine Bacteria (Auto) None Seen (None Seen) Administered Medications Discontinued Medications Sodium Chloride (Nss) 1,000 mls @ 999 mls/hr IV .Q1H1M ONE Stop: 03/02/24 00:44 Last Infusion: 03/02/24 01:40 Dose: Infused Documented By: Admin: 03/02/24 00:37 Dose: 999 mls/hr Documented By: ALTAF Ioversol (Optiray 320 100ml) 100 ml IV ONCE ONE Stop: 03/02/24 00:34 Last Admin: 03/02/24 00:33 Dose: 93 ml Documented By: MEG Morphine Sulfate (Morphine Sulfate 4 Mg/Ml 1 Ml Carp\Vial) 4 mg IV NOW STA Stop: 03/02/24 02:11 Last Admin: 03/02/24 02:20 Dose: 4 mg Documented By: SARAH Ondansetron HCl (Ondansetron Inj 2 Mg/Ml 2 Ml Vial) 4 mg IV NOW STA Stop: 03/02/24 02:11 Last Admin: 03/02/24 02:20 Dose: 4 mg Documented By: SARAH Imaging Data Radiologist's Impression: Abdomen/Pelvis CT 03/01/24 23:11 Exam(s): CT ABDOMEN + PELVIS With Contrast IV Amt: 93 ML OPTIRAY 320 EXAM: CT Abdomen and Pelvis With Intravenous Contrast CLINICAL HISTORY: constipation, abd pain, h/o SBO. TECHNIQUE: Axial computed tomography images of the abdomen and pelvis with intravenous contrast. CTDI is 27.16 mGy and DLP is 1420.17 mGy-cm. Automated exposure control was utilized for the study. A dose lowering technique was utilized adhering to the principles of ALARA. CONTRAST: Patient received 93 ML OPTIRAY 320 of IV contrast COMPARISON: CT abdomen and pelvis without contrast dated 05/23/2022 FINDINGS: Lung bases: Unremarkable. No mass. No consolidation. ABDOMEN: Liver: Unremarkable. No mass. Gallbladder and bile ducts: Unremarkable. No calcified stones. No ductal dilation. Pancreas: Unremarkable. No mass. No ductal dilation. Spleen: Unremarkable. No splenomegaly. Adrenals: Unremarkable. No mass. Kidneys and ureters: Unremarkable. No solid mass. No hydronephrosis. Stomach and bowel: Similar abnormal fluid dilation of the small bowel throughout the mid to inferior abdomen and pelvis with asymmetric decompression of the terminal ileum and distal small bowel loops. The transition point is noted immediately deep to the umbilicus in the right paramedian abdomen. No obvious hernia. Mild stool burden throughout the colon. No obvious significant asymmetric mucosal thickening. PELVIS: Appendix: A normal caliber appendix is noted posterior to the cecum. Bladder: Unremarkable. No mass. Reproductive: Unremarkable as visualized. ABDOMEN and PELVIS: Intraperitoneal space: Trace free fluid noted in the pelvis anteriorly and posteriorly. No loculation. No free air. Bones/joints: No acute fracture. No dislocation. Soft tissues: Postsurgical changes noted at the right inguinal region. Vasculature: Unremarkable. No abdominal aortic aneurysm. Lymph nodes: Unremarkable. No enlarged lymph nodes. IMPRESSION: 1. Similar abnormal fluid dilation of the small bowel throughout the mid to inferior abdomen and pelvis with asymmetric decompression of the terminal ileum and distal small bowel loops. The transition point is noted immediately deep to the umbilicus in the right paramedian abdomen. No obvious hernia. Findings are consistent with a mid to distal high- grade small bowel obstruction. 2. Trace free fluid noted in the pelvis anteriorly and posteriorly. No loculation. This is presumed related to the small bowel process. Electronically signed by: Chaitanya Cummings MD 03/02/24 01:47 AM Discharge Plan Visit Data Chief Complaint: Constipation Stated Complaint: CONSTIPATION? ED Provider: [facility] ED Midlevel Provider: Falguni Castrejon Discharge Problem: SBO (small bowel obstruction), Abdominal pain Forms Stand Alone Forms: My [facility] Prescriptions Prescriptions: No Action No Known Home Medications Referrals Referrals: Dominick Baker MD [Primary Care Provider] -
[2024-03-01 23:47] LABS: Basophils # (auto) 0.03 K/uL (0.00-0.20); Basophils % (auto) 0.3 %; Eosinophils # (auto) 0.15 K/uL (0.00-0.50); Eosinophils % (auto) 1.3 %; Hematocrit (blood only) 45.7 % (42.0-52.0); Hemoglobin 15.9 g/dl (14.0-18.0); Immature Granulocytes # (auto) 0.03 K/uL (0.01-0.20); Immature Granulocytes % (auto) 0.3 %; Lymphocytes # (auto) 1.79 K/uL (1.20-3.40); Lymphocytes % (auto) 15.4 %; Mean Corpuscular Hemoglobin 31.1 pg (25.0-34.0); Mean Corpuscular Hgb Conc 34.8 g/dL (32.0-36.0); Mean Corpuscular Volume 89.3 fL (80.0-100.0); Mean Platelet Volume 9.8 fL (9.4-12.4); Monocytes # (auto) 0.95 K/uL (0.11-0.59); Monocytes % (auto) 8.2 %; Neutrophils # (auto) 8.69 K/uL (1.40-6.50); Neutrophils % (auto) 74.5 %; Platelet Count 265 K/uL (130-400); RDW Coefficient of Variation 13.4 % (11.5-14.5); RDW Standard Deviation 43.8 fL (36.4-46.3); Red Blood Count 5.12 M/uL (4.70-6.10); White Blood Count 11.64 K/ul (4.8-10.8)
[2024-03-02] LABS: Albumin Globulin Ratio 1.8 (0.9-2); Albumin Level 5.1 gm/dl (3.4-5.0); BUN Creatinine Ratio 16.9 (10-20); Bilirubin,Total 0.8 mg/dl (0.2-1.0); Calcium 9.9 mg/dl (8.6-10.3); Creatinine Clr Calc Pharmacy 87.4 ml/min; Est GFR (African American) 74.8 ml/min; Est GFR (Non-African American) 64.5 ml/min; Globulin 2.9 gm/dl (2.5-4.0); Potassium 4.1 mmol/L (3.5-5.1)
[2024-03-02] MEDS: OPTIRAY 320 100ml IV ONE (00:33)
[2024-03-02] MEDS: SODIUM CHLORIDE 0.9% 1,000 ML IV ONE (00:37)
--- NOTE | 2024-03-02 01:48 | CT Scan Report ---
Exam(s): CT ABDOMEN + PELVIS With Contrast IV Amt: 93 ML OPTIRAY 320 EXAM: CT Abdomen and Pelvis With Intravenous Contrast CLINICAL HISTORY: constipation, abd pain, h/o SBO. TECHNIQUE: Axial computed tomography images of the abdomen and pelvis with intravenous contrast. CTDI is 27.16 mGy and DLP is 1420.17 mGy-cm. Automated exposure control was utilized for the study. A dose lowering technique was utilized adhering to the principles of ALARA. CONTRAST: Patient received 93 ML OPTIRAY 320 of IV contrast COMPARISON: CT abdomen and pelvis without contrast dated 05/23/2022 FINDINGS: Lung bases: Unremarkable. No mass. No consolidation. ABDOMEN: Liver: Unremarkable. No mass. Gallbladder and bile ducts: Unremarkable. No calcified stones. No ductal dilation. Pancreas: Unremarkable. No mass. No ductal dilation. Spleen: Unremarkable. No splenomegaly. Adrenals: Unremarkable. No mass. Kidneys and ureters: Unremarkable. No solid mass. No hydronephrosis. Stomach and bowel: Similar abnormal fluid dilation of the small bowel throughout the mid to inferior abdomen and pelvis with asymmetric decompression of the terminal ileum and distal small bowel loops. The transition point is noted immediately deep to the umbilicus in the right paramedian abdomen. No obvious hernia. Mild stool burden throughout the colon. No obvious significant asymmetric mucosal thickening. PELVIS: Appendix: A normal caliber appendix is noted posterior to the cecum. Bladder: Unremarkable. No mass. Reproductive: Unremarkable as visualized. ABDOMEN and PELVIS: Intraperitoneal space: Trace free fluid noted in the pelvis anteriorly and posteriorly. No loculation. No free air. Bones/joints: No acute fracture. No dislocation. Soft tissues: Postsurgical changes noted at the right inguinal region. Vasculature: Unremarkable. No abdominal aortic aneurysm. Lymph nodes: Unremarkable. No enlarged lymph nodes. IMPRESSION: 1. Similar abnormal fluid dilation of the small bowel throughout the mid to inferior abdomen and pelvis with asymmetric decompression of the terminal ileum and distal small bowel loops. The transition point is noted immediately deep to the umbilicus in the right paramedian abdomen. No obvious hernia. Findings are consistent with a mid to distal high- grade small bowel obstruction. 2. Trace free fluid noted in the pelvis anteriorly and posteriorly. No loculation. This is presumed related to the small bowel process. Electronically signed by: Chaitanya Cummings MD 03/02/24 01:47 AM
[2024-03-02] MEDS: MoRPHine SULFATE 4 MG/ML 1 ML CARP\\VIAL IV STA (02:20)
[2024-03-02] MEDS: ONDANSETRON INJ 2 MG/ML 2 ML VIAL IV STA (02:20)
--- NOTE | 2024-03-02 03:02 | History & Physical Report ---
Date of Service March 02, 2024 Assessment & Plan (1) SBO (small bowel obstruction): Plan: SBO (small bowel obstruction): Recurrent SBO Hypertension, not on maintenance medications anxietyOCD, not on maintenance meds episodic bradycardia Admit to F Analgesia, anxiolytic as needed Bowel rest NGT decompression if with emesis Surgery consult Re: Recurrent SBO DVT prophylaxis SCDs Full code Text document was generated using [employer] voice recognition software. It may contain grammatical or spelling errors. Kindly contact undersigned for clarification of any documentation item in question. History of Present Illness Chief Complaint: Abdominal pain Primary Care Provider: Dominick Baker MD History obtained from patient and records. Medical history significant for hypertension, anxiety/OCD, IBS, lumbar radiculopathy, episodic bradycardia. Last confinement May 2022 for recurrent SBO, resolved with conservative management. Yesterday afternoon, patient noted epigastric discomfort reminiscent of bowel blockage attack. Nausea and constipation symptoms prior to discomfort as per patient. No fever, no chills, no chest pain, no SOB. 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 Allergies Allergy/AdvReac Type Severity Reaction Status Date / Time No Known Allergies Allergy Verified 03/01/24 23:36 Home Medications Medication Instructions Recorded Confirmed Type No Known Home Medications 03/01/24 03/01/24 History 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--far right lateral per MRI 08/08/2023 Lumbar radiculopathy Right leg paresthesias SBO (small bowel obstruction) (Acute) Encounter for pre-operative examination Medical History Small bowel obstruction IBS (irritable bowel syndrome) Panic attacks OCD (obsessive compulsive disorder) LUIS (generalized anxiety disorder) Human papilloma virus History of colitis Surgical History History of incisional hernia repair 2020 with mesh History of right inguinal hernia repair Laparoscopic 2018 Status post scrotal varicocelectomy S/P orchiopexy Nausea and vomiting after administration of anesthetic agent History of tooth extraction History of colonoscopy Social History Smoking Status: Never smoker Second Hand Exposure: No; Do You Dip or Chew Tobacco: No; Hx Alcohol Use: Yes Alcohol type: beer Hx Substance Use: No Preferred Language: Barbadian Communication Ability: Effective Visual Impairment: No Limitations Sustainability Consultant Required: No Beliefs That Will Affect Care: None marital status: Current Living Situation: Spouse How many Children do You have: 1 Other Information That Helps Us Care for You: No Feels Safe at Home: Yes Safety Concerns: Feels Safe At This Time Assistive Devices: None Review of Systems Review of Systems: As per HPI, all other systems reviewed and negative Physical Exam Physical Exam: GENERAL: Slightly uncomfortable, slightly anxious, obese, no respiratory distress SKIN: Normal color, warm HEENT: Alopecia, pink palpebral conjunctivae, no ptosis, dry buccal mucosa NECK : Supple, no tenderness CHEST : CTA, no tenderness HEART : Bradycardic, no obvious murmurs ABDOMEN: Some distention, central abdominal tenderness EXTREMITIES : No LE swelling/tenderness, no other conspicuous deformities noted NEUROLOGIC : Coherent, no facial asymmetry, no other gross focality Results & Data Results & Data Vital Signs (Past 12 Hours) Vital Signs Temp Pulse Resp BP Pulse Ox O2 Del Method 03/02/24 00:42 56 L 03/02/24 00:40 57 L 16 146/96 H 97 Room Air 03/01/24 22:52 36.7 C 68 16 143/98 H 97 Room Air Laboratory Results Laboratory Results WBC 11.64 K/ul (4.8-10.8) H 03/01/24 23:20 RBC 5.12 M/uL (4.70-6.10) 03/01/24 23:20 Hgb 15.9 g/dl (14.0-18.0) 03/01/24 23:20 Hct 45.7 % (42.0-52.0) 03/01/24 23:20 MCV 89.3 fL (80.0-100.0) 03/01/24 23:20 MCH 31.1 pg (25.0-34.0) 03/01/24 23:20 MCHC 34.8 g/dL (32.0-36.0) 03/01/24 23:20 RDW Std Deviation 43.8 fL (36.4-46.3) 03/01/24 23:20 RDW Coeff of Trish 13.4 % (11.5-14.5) 03/01/24 23:20 Plt Count 265 K/uL (130-400) 03/01/24 23:20 MPV 9.8 fL (9.4-12.4) 03/01/24 23:20 Immature Gran % (Auto) 0.3 % 03/01/24 23:20 Neut % (Auto) 74.5 % 03/01/24 23:20 Lymph % (Auto) 15.4 % 03/01/24 23:20 [place] % (Auto) 8.2 % 03/01/24 23:20 Eos % (Auto) 1.3 % 03/01/24 23:20 Baso % (Auto) 0.3 % 03/01/24 23:20 Neut # (Auto) 8.69 K/uL (1.40-6.50) H 03/01/24 23:20 Lymph # (Auto) 1.79 K/uL (1.20-3.40) 03/01/24 23:20 [place] # (Auto) 0.95 K/uL (0.11-0.59) H 03/01/24 23:20 Eos # (Auto) 0.15 K/uL (0.00-0.50) 03/01/24 23:20 Baso # (Auto) 0.03 K/uL (0.00-0.20) 03/01/24 23:20 Immature Gran # (Auto) 0.03 K/uL (0.01-0.20) 03/01/24 23:20 Sodium 142 mmol/L (136-145) 03/01/24 23:20 Potassium 4.1 mmol/L (3.5-5.1) 03/01/24 23:20 Chloride 107 mmol/L (98-107) 03/01/24 23:20 Carbon Dioxide 29 mmol/L (21-32) 03/01/24 23:20 Anion Gap 6 (3-11) 03/01/24 23:20 BUN 22 mg/dl (6-23) 03/01/24 23:20 Creatinine 1.30 mg/dl (0.6-1.4) 03/01/24 23:20 Est Cr Clr Drug Dosing 87.4 ml/min 03/01/24 23:20 Est GFR ( Amer) 74.8 ml/min 03/01/24 23:20 Est GFR (Non-Af Amer) 64.5 ml/min 03/01/24 23:20 BUN/Creatinine Ratio 16.9 (10-20) 03/01/24 23:20 Glucose 99 mg/dl (70-99(Fasting)) 03/01/24 23:20 Lactate 0.9 mmol/L (0.4-2.0) 03/02/24 00:12 Calcium 9.9 mg/dl (8.6-10.3) 03/01/24 23:20 Total Bilirubin 0.8 mg/dl (0.2-1.0) 03/01/24 23:20 AST 24 U/L (13-39) 03/01/24 23:20 ALT 23 U/L (7-52) 03/01/24 23:20 Alkaline Phosphatase 59 U/L (34-104) 03/01/24 23:20 Total Protein 8.0 gm/dl (6.0-8.3) 03/01/24 23:20 Albumin 5.1 gm/dl (3.4-5.0) H 03/01/24 23:20 Globulin 2.9 gm/dl (2.5-4.0) 03/01/24 23:20 Albumin/Globulin Ratio 1.8 (0.9-2) 03/01/24 23:20 Lipase 7 U/L (11-82) L 03/01/24 23:20 Urine Color Dark Yellow 03/01/24 23:20 Urine Appearance Cloudy (Clear) A 03/01/24 23:20 Urine pH 5.0 (4.5-7.5) 03/01/24 23:20 Ur Specific [place] 1.039 (1.000-1.030) H 03/01/24 23:20 Urine Protein Trace (Negative) H 03/01/24 23:20 Urine Glucose (UA) Negative (Negative) 03/01/24 23:20 Urine Ketones 1+ (Negative) H 03/01/24 23:20 Urine Blood Negative (Negative) 03/01/24 23:20 Urine Nitrite Negative (Negative) 03/01/24 23:20 Urine Bilirubin Negative (Negative) 03/01/24 23:20 Urine Urobilinogen Negative (Negative) 03/01/24 23:20 Ur Leukocyte Esterase Negative (Negative) 03/01/24 23:20 Urine WBC (Auto) 0-5 /hpf (0-5) 03/01/24 23:20 Urine RBC (Auto) 0-2 /hpf (0-2) 03/01/24 23:20 U Hyaline Cast (Auto) 0-2 /lpf (0-2) 03/01/24 23:20 U Epithel Cells (Auto) 0-2 /hpf (0-2) 03/01/24 23:20 Urine Bacteria (Auto) None Seen (None Seen) 03/01/24 23:20 Impressions Abdomen/Pelvis CT 03/01/24 23:11 Exam(s): CT ABDOMEN + PELVIS With Contrast IV Amt: 93 ML OPTIRAY 320 EXAM: CT Abdomen and Pelvis With Intravenous Contrast CLINICAL HISTORY: constipation, abd pain, h/o SBO. TECHNIQUE: Axial computed tomography images of the abdomen and pelvis with intravenous contrast. CTDI is 27.16 mGy and DLP is 1420.17 mGy-cm. Automated exposure control was utilized for the study. A dose lowering technique was utilized adhering to the principles of ALARA. CONTRAST: Patient received 93 ML OPTIRAY 320 of IV contrast COMPARISON: CT abdomen and pelvis without contrast dated 05/23/2022 FINDINGS: Lung bases: Unremarkable. No mass. No consolidation. ABDOMEN: Liver: Unremarkable. No mass. Gallbladder and bile ducts: Unremarkable. No calcified stones. No ductal dilation. Pancreas: Unremarkable. No mass. No ductal dilation. Spleen: Unremarkable. No splenomegaly. Adrenals: Unremarkable. No mass. Kidneys and ureters: Unremarkable. No solid mass. No hydronephrosis. Stomach and bowel: Similar abnormal fluid dilation of the small bowel throughout the mid to inferior abdomen and pelvis with asymmetric decompression of the terminal ileum and distal small bowel loops. The transition point is noted immediately deep to the umbilicus in the right paramedian abdomen. No obvious hernia. Mild stool burden throughout the colon. No obvious significant asymmetric mucosal thickening. PELVIS: Appendix: A normal caliber appendix is noted posterior to the cecum. Bladder: Unremarkable. No mass. Reproductive: Unremarkable as visualized. ABDOMEN and PELVIS: Intraperitoneal space: Trace free fluid noted in the pelvis anteriorly and posteriorly. No loculation. No free air. Bones/joints: No acute fracture. No dislocation. Soft tissues: Postsurgical changes noted at the right inguinal region. Vasculature: Unremarkable. No abdominal aortic aneurysm. Lymph nodes: Unremarkable. No enlarged lymph nodes. IMPRESSION: 1. Similar abnormal fluid dilation of the small bowel throughout the mid to inferior abdomen and pelvis with asymmetric decompression of the terminal ileum and distal small bowel loops. The transition point is noted immediately deep to the umbilicus in the right paramedian abdomen. No obvious hernia. Findings are consistent with a mid to distal high- grade small bowel obstruction. 2. Trace free fluid noted in the pelvis anteriorly and posteriorly. No loculation. This is presumed related to the small bowel process. Electronically signed by: Chaitanya Cummings MD 03/02/24 01:47 AM
[2024-03-02 03:17] LABS: Magnesium 2.2 mg/dl (1.7-2.4)
[2024-03-02] MEDS ORDERED: traMADol HCL 50 MG TABLET PO PRN (03:35)
[2024-03-02] MEDS ORDERED: LORazepam 0.5 MG TAB PO PRN (03:35)
[2024-03-02] MEDS ORDERED: ACETAMINOPHEN 1,000 MG/100 ML VIAL IV PRN (03:35)
[2024-03-02] MEDS ORDERED: ACETAMINOPHEN 325 MG TAB PO PRN (03:35)
[2024-03-02] MEDS ORDERED: PROMETHAZINE HCL 6.25 MG in SODIUM CHLORIDE 0.9% 50 ML IV PRN (03:35)
--- NOTE | 2024-03-02 04:01 | Surgery Consultation ---
Date of Consultation March 02, 2024 Assessment & Plan (1) SBO (small bowel obstruction): Patient is being admitted on the hospitalist service. From surgery perspective we recommend the following: Implement n.p.o. status Provide IV fluid for hydration I did discuss with the patient the utilization of an NG tube. As the patient currently is not having any emesis I feel we can hold on this modality but did discuss with the patient if his clinical course deteriorates this modality may need to be used As the patient has had a previous umbilical hernia surgery repair this raises a concern the patient may potentially have adhesions causing his small bowel obstruction. At the present time the patient is nontoxic-appearinghe is normotensive without tachycardia or fever. He does not have an elevated lactic acid level and only has a slight leukocytosis and therefore I feel conservative measures are warranted at this time If the patient fails to open up over the next 12 to 24 hours consideration may be given to performing a contrast study of his abdomen Additional recommendations to be forthcoming based on his clinical course as it unfolds Supervising Physician Co-Signing Physician Notes I personally saw and evaluated the patient with Yoan Lobato PA-C and agree with the assessment and plan. 48-year-old male with a small bowel obstruction CT images and results were personally viewed and interpreted by myself No plans for exploration, he is being admitted to medical team Follow his abdominal exam and await return of bowel function Will follow History of Present Illness Reason for Consultation: Small bowel obstruction History of Present Illness This is an 48-year-old male who presented the emergency department secondary to abdominal pain. The patient notes that he underwent an umbilical hernia repair with mesh by Dr. Conner French in 2020 and he also had a laparoscopic right inguinal hernia [place] [address] Andrade. Patient reports that in 2021 he developed a small bowel obstruction that was treated successfully in a conservative manner. He notes that yesterday he had a bowel movement in the morning but then later throughout the day had an episode of diaphoresis and then developed abdominal discomfort near his umbilicus. The pain was nonradiating without modifying factors. He denies any fevers, shakes, or chills but did have 1 episode of emesis. Because of this and his previous history of small bowel obstruction he reported to the emergency department. Since arrival to hospital patient has had labs and imaging which I dependent reviewed. A CT scan of the abdomen pelvis showed the patient had some abnormal fluid collection in the small bowel throughout the mid and inferior abdomen and pelvis. There is decompression of the terminal ileum and distal small bowel with transition point immediately deep to the umbilicus with findings concerning for a mid to distal high-grade small bowel obstruction. Labs included CBC her white blood cell count was elevated 11.6. Hemoglobin and hematocrit and the platelet count were normal. Chemistry profile showed sodium and potassium as well as the BUN and creatinine were normal. Lactic acid was not elevated. Urinalysis was not indicative of infection. At the time my interview he was resting comfortably in bed and he was in no distress Allergies Allergy/AdvReac Type Severity Reaction Status Date / Time No Known Allergies Allergy Verified 03/01/24 23:36 Home Medications Medication Instructions Recorded Confirmed Type No Known Home Medications 03/01/24 03/01/24 History Patient History Medical History Small bowel obstruction IBS (irritable bowel syndrome) Panic attacks OCD (obsessive compulsive disorder) LUIS (generalized anxiety disorder) Human papilloma virus History of colitis Surgical History History of incisional hernia repair 2020 with mesh History of right inguinal hernia repair Laparoscopic 2018 Status post scrotal varicocelectomy S/P orchiopexy Nausea and vomiting after administration of anesthetic agent History of tooth extraction History of colonoscopy Social History Smoking Status: Never smoker Second Hand Exposure: No; Do You Dip or Chew Tobacco: No; Hx Alcohol Use: Yes Alcohol type: beer Hx Substance Use: No Preferred Language: Wolof Communication Ability: Effective Visual Impairment: No Limitations 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 Beliefs That Will Affect Care: None marital status: Current Living Situation: Spouse How many Children do You have: 1 Other Information That Helps Us Care for You: No Feels Safe at Home: Yes Safety Concerns: Feels Safe At This Time Assistive Devices: None Review of Systems Review of Systems: All systems reviewed & are unremarkable except as noted in HPI & below Physical Exam Constitutional: WD/WN, vitals as above Eyes: no conjunctival abnormality ENMT: Ears: no hearing impairment and no external ear abnormality Mouth: no oropharynx abnormality Neck: trachea midline Respiratory: normal respiratory effort; no respiratory distress and no labored breathing Cardiovascular: Rate/Rhythm: regular rate and regular rhythm Gastrointestinal (Abdomen): Abdomen is noted to have mild distention. It is nonrigid. There is no rebound tenderness or guarding. Patient did have slight pain with palpation in the paramedical region. Patient did have a well-healed incision near his umbilicus from previous surgery. Musculoskeletal: No calf tenderness Skin: no rashes Neurologic: moves all extremities Psychiatric: A+Ox3, euthymic affect Results & Data Vital Signs (Past 12 Hours) Vital Signs Temp Pulse Resp BP Pulse Ox O2 Del Method 03/02/24 03:39 16 96 Room Air 03/02/24 03:00 15 95 Room Air 03/02/24 02:33 16 92 Room Air 03/02/24 02:00 60 16 149/101 H 100 Room Air 03/02/24 01:30 62 15 144/95 H 97 Room Air 03/02/24 01:00 59 L 18 149/88 H 98 Room Air 03/02/24 00:51 58 L 19 95 Room Air 03/02/24 00:42 56 L 03/02/24 00:40 57 L 16 146/96 H 97 Room Air 03/01/24 22:52 36.7 C 68 16 143/98 H 97 Room Air PG Care Time/CCT Total # of Minutes Spent Total Time Spent with Patient: Total time spent is greater than 50% in coordination of care (as documented) at patient's floor/unit and/or counseling patient: Coding Level of Care Code 48951 IN/OBS CONSULT LVL 5,80M Diagnoses SBO (small bowel obstruction) K56.609
--- OUTSIDE RECORDS SUMMARY | 2024-03-02 04:52 | External Medical Summary | Summary of Care ---
Author Name Unknown Organization [facility] Address [address] [place] [address] Phone [phone] Care Team Providers Care Coagulation Operator Name Role Phone Dominick Baker MD Primary Care Provider + Encounter Details Date Type Department Care Team (Late st Contact Info) Description 02/27/2024 Orders Only PATIENT PORTAL DO NOT DELETE THIS DEPT USED BY [place] [id number] Allergies Active Allergy Reactions Criticality Noted Date Comments Pollen Other (Please comment) 01/08/2016 Itchy eyes, runny nose, sneezing Ragweed Other (Please comment) 01/08/2016 Itchy eyes, runny nose, sneezing documented as of this encounter (statuses as of 02/27/2024) Medications Medication Sig Dispensed Refills Start Date End Date Status Cetirizine HCl 10 MG Oral Tablet (ZyrTEC) Take 1 Tablet by mouth in the morning. Active Ibuprofen 200 MG Oral Tablet (Motrin) Take 2 Tablets by mouth as needed. 05/21/2022 Active documented as of this encounter (statuses as of 02/27/2024) Active Problems Problem Noted Date Diagnosed Date Lumbar stenosis 09/18/2023 Lumbar disc herniation 09/18/2023 Essential hypertension with goal blood pressure less than 140/90 09/18/2023 Incisional hernia without obstruction or gangren e 05/22/2021 Umbilical hernia without obstruction and without gangrene 03/15/2021 Lesion of skin of scalp 03/15/2021 Difficulty attaining erection 08/27/2019 Thoracic outlet syndrome 08/27/2019 Irritable bowel syndrome with diarrhea 8 LUIS (generalized anxiety disorder) 12/01/2015 OCD (obsessive compulsive disorder) 12/01/2015 Panic attacks 12/01/2015 Well adult exam 12/01/2015 Overview: Undescended testicle-surgery brought down (left side) 12yo. Rec monthly self- check 05/23 colon 4mm polyp PATH hyperpleastic doreen 5y 2014 colonoscopy hyperplastic polyp, done for fissure. Hot flash in male 12/01/2015 Plantar warts 06/19/2012 Lumbar pain 06/19/2012 documented as of this encounter (statuses as of 02/27/2024) Resolved Problems Problem Noted Date Diagnosed Date Resolved Date Right inguinal hernia 05/08/20182018 documented as of this encounter (statuses as of 02/27/2024) Immunizations Name Administration Dates Next Due COVID-19 mRNA, LNP-s, No Pre serve, 2-Dose Series (Pfizer) 11/01/2020,10/11/2020 Covid-19, Mrna, Lnp-s, Pf, Bivalent, 30 Mcg, IM, 12 yrs and above (Pfizer) 04/25/2022 Seasonal Influenza, QUAD, wi th Preserv, 6 mons & Above, 0.5 mL, IM 06/24/2023 Seasonal Influenza, Quadriva lent, No Preserve, IM 06/18/2019,08/06/2016,06/19/2015 Seasonal Influenza, Split, I IV3, With Preserve, Inj 05/18/2014,05/26/2013,05/03/2011, 0 09 TD - Tetanus/Diptheria (ADULT) 01/03/2004 TDAP (age 10 and older)(Boostrix) 03/19/2022 TDAP, Age 7 and older, IM (Adacel) 08/14/2011 documented as of this encounter Social History Tobacco Use Types Packs/Day Years Used Date Smoking Tobacco: Never Smokeless Tobacco: Never Alcohol Use Standard Drinks/Week Comments Yes 0 (1 standard drink = 0.6 oz pure alcohol) 2/week. 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 has stopped bars etc. AUDIT-C Answer Date Recorded Q1: How often do you have a drink containing alc ohol? 2-4 times a month 03/15/2021 Q2: How many drinks containi ng alcohol do you have on a typical day when you are drinking? 1 or 2 03/15/2021 Q3: How often do you have si x or more drinks on one occasion? Not asked 03/15/2021 PHQ-2 Answer Date Recorded PHQ Adult Total Score 0 02/25/2024 Hunger Vital Sign Answer Date Recorded Within the past 12 months, y ou worried that your food would run out before you got the money to buy more. Never true 02/25/20 24 Within the past 12 months, t he food you bought just didn't last and you didn't have money to get more. Never true 02/25/2024 Childcare Answer Date Recorded Do you feel overwhelmed with taking care of a child, family member or friend? No 02/25/2024 Does your family need help f inding childcare? (Household - for ages 0-17 years) Not on file 02/25/2024 Clothing Answer Date Recorded Have you been unable to get clothing when it was really needed? No 02/25/2024 Is your family able to get c lothes or diapers when needed? (Household - for ages 0-17 years) Not on file 02/25/2024 Personal Safety Answer Date Recorded Do you feel unsafe or have concerns for your saf ety? No 02/25/2024 Do you have concerns for you r family's safety? (Household - for ages 0-17 years) Not on file 02/25/2024 Utilities Answer Date Recorded Do you have trouble paying y our heating, water, or electric bill? No 02/25/2024 Is your family able to pay t he heat, water, or electric bill? (Household - for ages 0-17 years) Not on file 02/25/2024 Does your family have access to good internet? (Household - for ages 0-17 years) Not on file 02/25/2024 Employment Status Answer Date Recorded Are you unemployed or without regular income? No 02/25/2024 Does the household have a re gular source of income? (Household - for ages 0-17 years) Not on file 02/25/2024 Social Connections Answer Date Recorded How often do you feel lonely or isolated from th ose around you? Never 02/25/2024 Financial Resource Strain Answer Date R ecorded Do you have any trouble payi ng for your medications, or do you think you might in the future? No 02/25/2024 Does your family have troubl e paying for medicine? (Household - for ages 0-17 years) Not on file 02/25/2024 Transportation Needs Answer Date Record ed Do you have trouble getting a ride to medical visits or work? (Adult - for ages 18 years and over) Not on file 02/25/2024 Does your family have a hard time getting a ride to doctors visits? (Household - for ages 0-17 years) Not on file 02/25/2024 Has lack of transportation k ept you from medical appointments, meetings, work, or from getting things needed for daily living? Check all that apply. No 02/25/2024 Do you (or your family) have trouble finding or paying for a ride (transportation)? (Household - for ages 0-17 years) Not on file 02/25/2024 Housing Stability Answer Date Recorded Do you currently live in a s helter or have no steady place to sleep at night? No 02/25/2024 Do you think you are at risk of becoming homeless? (Adult - for ages 18 years and over) Not on file 02/25/2024 Does your family worry about paying for your home or becoming homeless? (Household - for ages 0-17 years) Not on file 0 02/25/2024 Are you homeless or worried that you might be in the future? No 02/25/2024 Are you (or your family) moris eless or worried that you might be in the future? (Household - for ages 0-17 years) Not on file Food Insecurity Answer Date Recorded Do you need food for this week? No 02/25/2024 Are you able to get enough f ood for your family? (Household - for ages 0-17 years) Not on file 02/25/2024 Does your family need food t his week? (Household - for ages 0-17 years) Not on file 02/25/2024 Do you always have enough fo od for your family? (Household - for ages 0-17 years) Not on file 02/25/2024 Sex and Gender Information Value Date Recorded Sex Assigned at Male 02/20/2023 8:25 AM EDT Gender Identity Male 02/20/2023 8:25 AM EDT Sexual Orientation Straight 02/20/2023 8: 25 AM EDT Job Start Date Occupation Industry Not on file Not on file Not on file documented as of this encounter Plan of Treatment Upcoming Encounters Date Type Department Care Team (Latest Contact Info) Description 03/17/2024 8:00 AM EDT Hospital Encounter [facility], Endoscopy Room [facility] [address] [place] [phone] Oliva Monzon MD [address] [place] [address] 03/17/2024 8:00 AM EDT - 03/17/2024 8:30 AM EDT Surgery ENDO [facility], Endoscopy Room [facility] [address] [place] [phone] Oilva Monzon MD [address] [place] [address] ESOPHAGOGASTRODUODENOSCOPY (EGD), FLEXIBLE, TRANSORAL, DIAGNOSTIC 03/31/2024 7:40 AM EDT Office Visit [facility] [address] [place] [address] Elizabeth Freedman CRNP [address] [place] [address] 03/21/2025 8:20 AM EDT Office Visit [facility] [address] [place] [address] Dominick Baker MD [address] [place] [address] Scheduled Procedures Name Priority Associated Diagnoses Date/Ti me ESOPHAGOGASTRODUODENOSCOPY ( EGD), FLEXIBLE, TRANSORAL, DIAGNOSTIC Abdominal pain 03/17/2024 8:00 AM EDT COLONOSCOPY FLEXIBLE PROXIMA L DIAGNOSTIC Recall History of colon polyps Health Maintenance Due Date Last Done Comments Albumin/Creatinine Ratio 10/23/1993 Hepatitis C Screening 10/23/1993 Hepatitis B Vaccine (1 of 3 - 19+ 3-dose series) 10/23/1994 GFR 07/24/2019 07/24/2018, 06/05, 01/31/2018, Additional history exists Cologuard 10/23/2020 Fecal Occult Blood Test 10/23/2020 Sigmoidoscopy 10/23/2020 Diabetes Screening 07/24/2021 07/24/2018, 1 09/01/2017, 01/31/2018, Additional history exists COVID-19 Vaccine ( season) 2023 04/25/2022, 11/01/2020, 10/11/2020 Influenza Vaccine (FLU shot) (#1) 2024 06/24/2023, 06/18/2019, 08/06/2016, Additional history exists Depression Screening 02/24/2025 02/25/2024 Colonoscopy 06/01/2025 06/01/2020, 05/05, 10/03/2014, Additional history exists Colorectal Cancer Screening 06/01/2025 Lipid Panel 10/29/2028 10/30/2023, 01/02, 08/01/2011 DTaP,Tdap,and Td Vaccines (3 - Td or Tdap) 03/19/2032 03/19/2022, 08/14/2011, 01/03/2004 RETIRED - COLONOSCOPY-EVERY 5 YRS AGES 18-100 Discontinued 06/01/2020, 06/01/2020, 10/03/2014, Additional history exists HPV (Gardasil) Vaccine Aged Out No lo nger eligible based on patient's age to complete this topic MENINGOCOCCAL (MENACTRA/MENVEO) Aged Out No longer eligible based on patient's age to complete this topic Pneumococcal Vaccine: Pediatrics (0 to 5 Years) and At-Risk Patients (6 to 64 Years) Aged Out No longer eligible based on patient's age to complete this topic documented as of this encounter Medical Devices Implanted Type Area Histotechnologist Device Identifier Shelf Expiration Date Model / Serial / Lot Patch Hernia Ventralex l - [id number] Implanted:Qty: 1 on 05/22/2021 by Ba French MD at OR [facility] N/A: Abdomen CR BARD : DAVOL 07/31/2021 [id number] / / [id number] documented as of this encounter Care Teams Coagulation Operator Relationship Specialty Start Date End Date Dominick Baker MD [address] [place] [address] PCP - General Family Medicine 12/01/15 documented as of this encounter
--- OUTSIDE RECORDS SUMMARY | 2024-03-02 04:52 | External Medical Summary | Summary of Care ---
Author Name Unknown Organization [facility] Address [address] [place] [address] Phone [phone] Care Team Providers Care Public Relations Sales Marketing Name Role Phone Dominick Baker MD Primary Care Provider + Encounter Details Date Type Department Care Team (Late st Contact Info) Description 02/25/2024 Telephone Gastroenterology, [facility] [address] [place] [address] Oliva Monzon MD [address] [place] [address] Allergies Active Allergy Reactions Criticality Noted Date Comments Pollen Other (Please comment) 01/08/2016 Itchy eyes, runny nose, sneezing Ragweed Other (Please comment) 01/08/2016 Itchy eyes, runny nose, sneezing documented as of this encounter (statuses as of 02/25/2024) Medications Medication Sig Dispensed Refills Start Date End Date Status Cetirizine HCl 10 MG Oral Tablet (ZyrTEC) Take 1 Tablet by mouth in the morning. Active Ibuprofen 200 MG Oral Tablet (Motrin) Take 2 Tablets by mouth as needed. 05/21/2022 Active documented as of this encounter (statuses as of 02/25/2024) Active Problems Problem Noted Date Diagnosed Date [...] as of this encounter (statuses as of 02/25/2024) Resolved Problems Problem Noted Date Diagnosed Date Resolved Date Right inguinal hernia 05/08/20182018 documented as of this encounter (statuses as of 02/25/2024) Immunizations Name Administration Dates Next Due COVID-19 mRNA, LNP-s, No Pre serve, 2-Dose Series ([employer]) 11/01/2020,10/11/2020 Covid-19, Mrna, Lnp-s, Pf, Bivalent, 30 [...] EDT Hospital Encounter [facility]O [facility], Endoscopy Room [facility] [address] [place] [phone] Oliva Monzon MD [address] [place] [address] 03/17/2024 8:00 AM EDT - 03/17/2024 8:30 AM EDT Surgery ENDO [facility], Endoscopy Room [facility] [address] [place] [phone] Oliva Monzon MD [address] [place] [address] ESOPHAGOGASTRODUODENOSCOPY (EGD), FLEXIBLE, TRANSORAL, DIAGNOSTIC 03/31/2024 7:40 AM EDT Office Visit [facility] [address] [place] [address] Elizabeth Freedman CRNP [address] [place] [address] 03/21/2025 8:20 AM EDT Office Visit [facility] [address] [place] [address] Dominick Baker MD [address] [place] [address] Scheduled Procedures Name Priority Associated Diagnoses Date/Ti [...] this encounter Medical Devices Implanted Type Area Piped Pocket Machine Operator Device Identifier Shelf Expiration Date Model / Serial / Lot Patch Hernia Ventralex l - [id number] Implanted:Qty: 1 on 05/22/2021 by Ba French MD at OR [facility] N/A: Abdomen CR BARD : DAVOL 07/31/2021 [id number] / / [id number] documented as of this encounter Care Teams Public Relations Sales Marketing Relationship Specialty Start Date End Date Dominick Baker MD [address] [place] [address] PCP - General Family Medicine 12/01/15 documented as of this encounter
--- OUTSIDE RECORDS SUMMARY | 2024-03-02 04:53 | External Medical Summary | Summary of Care ---
Author Name Unknown Organization [facility] Address [address] [place] [address] Phone [phone] Care Team Providers Care Wet Press Tender Name Role Phone Dominick Baker MD Primary Care Provider + Reason for Visit * Reason Onset Date Comments MyCode - Took Form To Consider 11/06/2023 Encounter Details Date Type Department Care Team (Late st Contact Info) Description 11/06/2023 Orders Only [facility] [address] [place] [address] Charity Swan CHRA MyCode Nonconsent Documentation Allergies Active Allergy Reactions Criticality Noted Date Comments Pollen Other (Please comment) 01/08/2016 Itchy eyes, runny nose, sneezing Ragweed Other (Please comment) 01/08/2016 Itchy eyes, runny nose, sneezing documented as of this encounter (statuses as of 11/06/2023) Medications Medication Sig Dispensed Refills Start Date End Date Status Cetirizine HCl 10 MG Oral Tablet (ZyrTEC) Take 1 Tablet by mouth in the morning. 0 Active Ibuprofen 200 MG Oral Tablet (Motrin) Take 2 Tablets by mouth as needed. 0 05/21/2022 Active Celecoxib 100 MG Oral Capsule (CeleBREX) Take 1 Capsule by mouth 2 times a day as needed for Pain, Mild. 0 Active Gabapentin 300 MG Oral Capsule (Neurontin) Take 1 Capsule by mouth in the morning and 1 Capsule before bedtime. TAKE 1 CAPSULE BY MOUTH EVERY MORNING AND TAKE TWO CAPSULES ONE HOUR PRIOR TO BEDTIME . 0 Active amLODIPine Besylate 5 MG Oral Tablet (Norvasc)Indications: Essential hypertension with goal blood pressure less than 140/90 Take 1 Tablet by mouth in the morning. 90 Tablet 3 09/18/2023 Active documented as of this encounter (statuses as of 11/06/2023) Active Problems Problem Noted Date Diagnosed Date [...] as of this encounter (statuses as of 11/06/2023) Resolved Problems Problem Noted Date Diagnosed Date Resolved Date Right inguinal hernia 05/08/20182018 documented as of this encounter (statuses as of 11/06/2023) Immunizations Name Administration Dates Next Due COVID-19 mRNA, LNP-s, No Pre serve, 2-Dose Series ([employer]) 11/01/2020,10/11/2020 Covid-19, Mrna, Lnp-s, Pf, Bivalent, 30 Mcg, IM, 12 yrs and above ([employer]) 04/25/2022 Seasonal Influenza, QUAD, wi th Preserv, 6 mons & Above, 0.5 mL, IM 06/24/2023 Seasonal Influenza, Quadriva lent, No Preserve, IM 06/18/2019,08/06/2016,06/19/2015 Seasonal Influenza, Split, I IV3, With Preserve, Inj 05/18/2014,05/26/2013,05/03/2011, 0 09 TD - Tetanus/Diptheria (ADULT) 01/03/2004 TDAP (age 10 and older)(Boostrix) 03/19/2022 TDAP (age 11 and older)(Adacel) 08/14/2011 documented as of this encounter Social [...] Date Recorded PHQ Adult Total Score 0 02/20/2023 Hunger Vital Sign Answer Date Recorded Within the past 12 months, y ou worried that your food would run out before you got the money to buy more. Never true 02/21/20 23 Within the past 12 months, t he food you bought just didn't last and you didn't have money to get more. Never true 02/20/2023 Sex and Gender Information Value Date Recorded Sex Assigned at Male 02/20/2023 8:25 AM EDT Gender Identity Male 02/20/2023 8:25 AM EDT Sexual Orientation Straight 02/20/2023 8: 25 AM EDT Job Start Date Occupation Industry Not on file Not on file Not on file documented as of this encounter Progress Notes * Charity Swan CHRA - 11/06/2023 8:31 AM EDT [place] Nonconsent Documentation Humberto Ybarra was approached in the clinic regarding participation in the MyCode Project and did not consent. documented in this encounter Plan of Treatment Upcoming Encounters Date Type Department Care Team (Latest Contact Info) Description 02/25/2024 8:40 AM EDT Office Visit [facility] [place] [address] [place] [address] Dominick Baker MD [address] [place] [address] 03/17/2024 8:00 AM EDT Hospital Encounter [facility]O [facility], Endoscopy Room [facility] [address] [place] [phone] Oliva Monzon MD [address] [place] [address] 03/17/2024 8:00 AM EDT - 03/17/2024 8:30 AM EDT Surgery ENDO [facility], Endoscopy Room [facility] [address] [place] [phone] Oliva Monzon MD [address] [place] [address] ESOPHAGOGASTRODUODENOSCOPY (EGD), FLEXIBLE, TRANSORAL, DIAGNOSTIC Scheduled Procedures Name Priority Associated Diagnoses Date/Ti me ESOPHAGOGASTRODUODENOSCOPY ( EGD), FLEXIBLE, TRANSORAL, DIAGNOSTIC Abdominal pain 03/17/2024 8:00 AM EDT COLONOSCOPY FLEXIBLE PROXIMA L DIAGNOSTIC Recall History of colon polyps Health Maintenance Due Date Last Done Comments Albumin/Creatinine Ratio 10/23/1993 Hepatitis C Screening 10/23/1993 Hepatitis B (1 of 3 - 19+ 3-dose series) 10/23/1994 GFR 07/24/2019 07/24/2018, 06/05, 01/31/2018, Additional history exists Diabetes Screening 07/24/2021 07/24/2018, 1 09/01/2017, 01/31/2018, Additional history exists COVID-19 Vaccine ( season) 2023 04/25/2022, 11/01/2020, 10/11/2020 Depression Screening 02/21/2024 02/20/2023 COLONOSCOPY-EVERY 5 YRS AGES 18-100 06/01/2025 06/01/2020, 06/01/2020, 10/03/2014, Additional history exists Lipid Panel 10/29/2028 10/30/2023, 01/02, 08/01/2011 DTaP,Tdap,and Td Vaccines (3 - Td or Tdap) 03/19/2032 03/19/2022, 08/14/2011, 01/03/2004 Influenza Vaccine (FLU shot) Completed , 06/18/2019, 08/06/2016, Additional history exists GARDASIL-HPV IMMUNIZATION SERIES Aged Out No longer eligible based on [...] this encounter Medical Devices Implanted Type Area Inspector Integrated Circuits Device Identifier Shelf Expiration Date Model / Serial / Lot Patch Hernia Ventralex l - [id number] Implanted:Qty: 1 on 05/22/2021 by Ba French MD at OR [facility] N/A: Abdomen CR BARD : DAVOL 07/31/2021 [id number] / / [id number] documented as of this encounter Care Teams Wet Press Tender Relationship Specialty Start Date End Date Dominick Baker MD [address] [address] PCP - General Family Medicine 12/01/15 documented as of this encounter
--- OUTSIDE RECORDS SUMMARY | 2024-03-02 04:53 | External Medical Summary | Summary of Care ---
Author Name Unknown Organization [facility] Address [address] [place] [address] Phone [phone] Care Team Providers Care Chapter Relations Administrator Name Role Phone Dominick Baker MD Primary Care Provider + Encounter Details Date Type Department Care Team (Late st Contact Info) Description 11/06/2023 Telephone Family Practice [facility] [address] [facility] [place] [address] Dominick Baker MD [address] [facility] [address] Allergies Active Allergy Reactions Criticality Noted Date [...] mRNA, LNP-s, No Pre serve, 2-Dose Series ([employer]) 11/01/2020,10/11/2020 Covid-19, Mrna, Lnp-s, Pf, Bivalent, 30 Mcg, IM, 12 yrs and above ([employer]) 04/25/2022 Seasonal Influenza, QUAD, wi th Preserv, [...] on file documented as of this encounter Miscellaneous Notes * Telephone Encounter - Dominick Baker MD - 11/06/2023 11:20 AM EDT Let pt know BP borderline at home but ok in office--can continue current meds, healthy eating/exercise & we'll recheck at appt in February * Telephone Encounter - Jamee Cornejo LPN - 11/06/2023 8:48 AM EDT Humberto Diaz Amada presented for blood pressure check per provider orders. The blood pressure was obtained using the left arm in the sitting position using a adult cuff. The results were charted in Vital Signs. BP Readings from Last 3 Encounters: 09/18/23 142/90 02/20/23 120/76 05/30/22 113/78 136/90 is average of BP at home lately; random throughout the day. BP: 122/74 P: 64 Patient denies headache, pressure in head, dizziness, lightheadedness, chest discomfort, focal neurological symptoms, change in vision, nose bleeds. Did patient take medications today? Yes Patient was instructed to follow-up with PCP after results are reviewed today. documented in this encounter Plan of Treatment Upcoming Encounters Date Type Department Care Team (Latest Contact Info) Description 02/25/2024 8:40 AM EDT Office Visit [facility] [address] [place] [address] Dominick Baker MD [address] [place] [address] 03/17/2024 8:00 AM EDT Hospital Encounter ENDO [facility], Endoscopy Room [facility] [address] [place] [phone] Oliva Monzon MD [address] [place] [address] 03/17/2024 8:00 AM EDT - 03/17/2024 8:30 AM EDT Surgery [facility], Endoscopy Room [facility] [address] [place] [phone] Oliva Monzon MD [address] [place] [address] ESOPHAGOGASTRODUODENOSCOPY (EGD), FLEXIBLE, TRANSORAL, DIAGNOSTIC Scheduled Procedures Name Priority Associated Diagnoses Date/Ti al ESOPHAGOGASTRODUODENOSCOPY ( EGD), FLEXIBLE, TRANSORAL, DIAGNOSTIC Abdominal [...] this encounter Medical Devices Implanted Type Area Pressure Steamer Tender Device Identifier Shelf Expiration Date Model / Serial / Lot Patch Hernia Ventralex Sml - [id number] Implanted:Qty: 1 on 05/22/2021 by Ba French MD at OR [facility] N/A: Abdomen CR BARD : DAVOL 07/31/2021 [id number] / / [id number] documented as of this encounter Care Teams Chapter Relations Administrator Relationship Specialty Start Date End Date Dominick Baker MD [address] [address] PCP - General Family Medicine 12/01/15 documented as of this encounter
--- OUTSIDE RECORDS SUMMARY | 2024-03-02 04:53 | External Medical Summary | Summary of Care ---
Author Name Unknown Organization [facility] Address [address] [place] [address] Phone [phone] Care Team Providers Care Investment Accounting Clerk Name Role Phone Dominick Baker MD Primary Care Provider + Reason for Visit * Reason Onset Date Comments Blood Pressure Check 11/06/2023 Encounter Details Date Type Department Care Team (Late st Contact Info) Description 11/06/2023 8:30 AM EDT Nurse Only Ancillary [facility] [address] [place] [address] [facility], Nurse [facility] [address] [place] [address] Blood Pressure Check Allergies Active Allergy Reactions Criticality Noted Date [...] mRNA, LNP-s, No Pre serve, 2-Dose Series ([employer]) 11/01/2020,10/11/2020 Covid-19, Mrna, Lnp-s, Pf, Bivalent, 30 Mcg, IM, 12 yrs and above ([employer]) 04/25/2022 Seasonal Influenza, QUAD, wi th Preserv, [...] on file documented as of this encounter Last Filed Vital Signs Vital Sign Reading Time Taken Comments Blood Pressure 122/74 11/06/2023 8:45 AM EDT Pulse 64 11/06/2023 8:45 AM EDT Temperature - - Respiratory Rate - - Oxygen Saturation - - Inhaled Oxygen Concentration - - Weight - - Height - - Body Mass Index - - documented in this encounter Progress Notes * Jamee Cornejo LPN - 11/06/2023 8:37 AM EDT Humberto Ybarra presented for blood pressure check per provider [...] Description 02/25/2024 8:40 AM EDT Office Visit [facility] [address] [place] [address] Dominick Baker MD [address] [place] [address] 03/17/2024 8:00 AM EDT Hospital Encounter ENDO [facility], Endoscopy Room [facility] [address] [place] [phone] Oliva Monzon MD [address] [place] [address] 03/17/2024 8:00 AM EDT - 03/17/2024 8:30 AM EDT Surgery [facility]O [facility], Endoscopy Room [facility] [address] [place] [phone] Oliva Monzon MD [address] [place] [address] ESOPHAGOGASTRODUODENOSCOPY (EGD), FLEXIBLE, TRANSORAL, DIAGNOSTIC Scheduled Orders Name Type Priority Associated Diagnoses Orde r Schedule BLOOD PRESSURE Procedures Routine HTN, goal below 130/80 Ordered: 11/06/2023 Scheduled Procedures Name Priority Associated Diagnoses Date/Ti wa ESOPHAGOGASTRODUODENOSCOPY ( EGD), FLEXIBLE, TRANSORAL, DIAGNOSTIC Abdominal [...] 09/01/2017, 01/31/2018, Additional history exists COVID-19 Vaccine (2022- season) 2023 04/25/2022, 11/01/2020, 10/11/2020 Depression Screening [...] this encounter Medical Devices Implanted Type Area Safety Relief Valve Technician Device Identifier Shelf Expiration Date Model / Serial / Lot Patch Hernia Ventralex l - [id number] Implanted:Qty: 1 on 05/22/2021 by Ba French MD at OR [facility] N/A: Abdomen CR BARD : DAVOL 07/31/2021 [id number] / / [id number] documented as of this encounter Visit Diagnoses Diagnosis HTN, goal below 130/80- Primary Unspecified essential hypertension Abdominal pain Abdominal pain, unspecified site documented in this encounter Care Teams Investment Accounting Clerk Relationship Specialty Start Date End Date Dominick Baker MD [address] [place] [address] PCP - General Family Medicine 12/01/15 documented as of this encounter
--- OUTSIDE RECORDS SUMMARY | 2024-03-02 04:53 | External Medical Summary | Summary of Care ---
Author Name Unknown Organization [facility] Address [address] [place] [address] Phone [phone] Care Team Providers Care Frequency Checker Name Role Phone Dominick Baker MD Primary Care Provider + Reason for Referral * Evaluate & Treat - Unlimited Visits (Within 10 days (routine)) - Authorized Specialty Diagnoses / Procedures Referred By Phill kitchen Referred To Contact Physical Therapy / Physical Medicine And Rehab Diagnoses Tendonosis Dominick Baker MD [address] [place] [address] Referral ID Status Reason Start Date Expiration Date Visits Requested Visits Authorized [id number] Authorized Specialty Services Required 02/25/[phone] Question Answer Referral Priority Within 10 days (routine) Where should this appointment be scheduled? [facility] Comments B/l forearm pain /tendonosis. Reason for Visit * Reason Comments Physical-Exam Yearly physical Encounter Details Date Type Department Care Team (Late st Contact Info) Description 02/25/2024 8:40 AM EDT Office Visit Family Practice [facility] [address] [place] [address] Dominick Baker MD [address] [place] [address] Well adult exam*; Essential hypertension with goal blood pressure less than 140/90; Chest discomfort; Dysphagia, unspecified type; Screening for diabetes mellitus; Tendonosis; LUIS (generalized anxiety disorder); Spinal stenosis of lumbar region with neurogenic claudication Allergies Active Allergy Reactions Criticality Noted Date [...] Tablets by mouth as needed. 05/21/2022 Active Celecoxib 100 MG Oral Capsule (CeleBREX) Take 1 Capsule by mouth 2 times a day as needed for Pain, Mild. 02/25/2024 Discontinued (Medication List Clean Up) Gabapentin 300 MG Oral Capsule (Neurontin) Take 1 Capsule by mouth in the morning and 1 Capsule before bedtime. TAKE 1 CAPSULE BY MOUTH EVERY MORNING AND TAKE TWO CAPSULES ONE HOUR PRIOR TO BEDTIME . 02/25/2024 Discontinued (Medication List Clean Up) amLODIPine Besylate 5 MG Oral Tablet (Norvasc)Indicatio ns:Essential hypertension with goal blood pressure less than 140/90 Take 1 Tablet by mouth in the morning. 90 Tablet 3 09/18/2023 02/25/2024 Discontinued (Patient preference/d iscontinuati on) documented as of this encounter (statuses as [...] mRNA, LNP-s, No Pre serve, 2-Dose Series ([employer]) 11/01/2020,10/11/2020 Covid-19, Mrna, Lnp-s, Pf, Bivalent, 30 [...] Date Smoking Tobacco: Never Smokeless Tobacco: Never Tobacco Cessation:Counseling Given: Not Answered Alcohol Use Standard Drinks/Week Comments Yes 0 [...] money to buy more. Never true 02/21/20 Within the past 12 months, t he food you bought just didn't last and you didn't have money to get more. Never true 02/20/2023 Childcare Answer Date Recorded Do you feel overwhelmed with taking care of a child, family member or friend? No 02/20/2023 Does your family need help f inding childcare? (Household - for ages 0-17 years) Not on file 02/20/2023 Clothing Answer Date Recorded Have you been unable to get clothing when it was really needed? No 02/20/2023 Is your family able to get c lothes or diapers when needed? (Household - for ages 0-17 years) Not on file 02/20/2023 Personal Safety Answer Date Recorded Do you feel unsafe or have concerns for your saf ety? No 02/20/2023 Do you have concerns for you r family's safety? (Household - for ages 0-17 years) Not on file 02/20/2023 Utilities Answer Date Recorded Do you have trouble paying y our heating, water, or electric bill? (Adult - for ages 18 years and over) Not on file 02/24/2024 Is your family able to pay t he heat, water, or electric bill? (Household - for ages 0-17 years) Not on file 02/24/2024 Does your family have access to good internet? (Household - for ages 0-17 years) Not on file 02/24/2024 Employment Status Answer Date Recorded Are you unemployed or without regular income? No 02/20/2023 Does the household have a re gular source of income? (Household - for ages 0-17 years) Not on file 02/20/2023 Social Connections Answer Date Recorded How often do you feel lonely or isolated from those around you? (Adult - for ages 18 years and over) Not on file 02/24/2024 Financial Resource Strain Answer Date R ecorded Do you have any trouble payi ng for your medications, or do you think you might in the future? No 02/20/2023 Does your family have troubl e paying for medicine? (Household - for ages 0-17 years) Not on file 02/20/2023 Transportation Needs Answer Date Record ed READ ONLY Do you have troubl e getting a ride to medical visits or work? Never True 02/20/2023 Does your family have a hard time getting a ride to doctors visits? (Household - for ages 0-17 years) Not on file 02/20/2023 Has lack of transportation k ept you from medical appointments, meetings, work, or from getting things needed for daily living? Check all that apply. (Adult - for ages 18 years and over) Not on file 02/20/2023 Do you (or your family) have trouble finding or paying for a ride (transportation)? (Household - for ages 0-17 years) Not on file 02/20/2023 Housing Stability Answer Date Recorded Do you currently live in a s helter or have no steady place to sleep at night? No 02/20/2023 READ ONLY Do you think you a re at risk of becoming homeless? No 02/20/2023 Does your family worry about paying for your home or becoming homeless? (Household - for ages 0-17 years) Not on file 0 02/20/2023 Are you homeless or worried that you might be in the future? (Adult - for ages 18 years and over) Not on file Are you (or your family) moris eless or worried that you might be in the future? (Household - for ages 0-17 years) Not on file Food Insecurity Answer Date Recorded Do you need food for this week? No 02/20/2023 Are you able to get enough f ood for your family? (Household - for ages 0-17 years) Not on file 02/20/2023 Does your family need food t his week? (Household - for ages 0-17 years) Not on file 02/20/2023 Do you always have enough fo od for your family? (Household - for ages 0-17 years) Not on file 02/20/2023 Sex and Gender Information Value Date Recorded Sex Assigned at Male 02/20/2023 8:25 AM EDT Gender Identity Male 02/20/2023 8:25 AM EDT Sexual Orientation Straight 02/20/2023 8: 25 AM EDT Job Start Date Occupation Industry Not on file Not on file Not on file documented as of this encounter Last Filed Vital Signs Vital Sign Reading Time Taken Comments Blood Pressure 126/80 02/25/2024 8:35 AM EDT Pulse 59 02/25/2024 8:35 AM EDT Temperature 35.7 C (96.2 F) 02/25/2024 8:35 AM ED T Respiratory Rate 16 02/25/2024 8:35 AM EDT Oxygen Saturation 97% 02/25/2024 8:35 AM EDT Inhaled Oxygen Concentration - - Weight 105.6 kg (232 lb 14.4 oz) 02/25/2024 8:35 AM EDT Height 185.2 cm (6' 0.9") 02/25/2024 8:35 AM EDT Body Mass Index 30.81 02/25/2024 8:35 AM EDT documented in this encounter Progress Notes * Dominick Baker MD - 02/25/2024 9:22 AM EDT SUBJECTIVE: Humberto Ybarra is a 48 year old male here for Physical-Exam (Yearly physical) . Here for CPE Right sciatica improved since epidural steroid injection this spring at the hospital. He still hasnumbness on the right anterior thigh. Was able to stop Celebrex and gabapentin. Blood pressure improved off of these and he lost weight. He was able to stop his blood pressure medicines as well. Feels well with this. Has been careful with exercising crunches. He is walking 30 miles a week. Continues to have ongoing epigastric and sternal pain after eating. Sometimes water and or food canfeel stuck on the times not. Can be soft or dry. No melena no bright red blood per rectum. He has endoscopy scheduled for next month. He had tried PPIs without relief so is not currently taking any. Patient complains of bilateral forearm soreness around the elbow worse with biceps lifting. Complains of recurrent plantar wart of right foot. Had quite a bit of stress with work has improved. No fever, chills, chest pain, shortness of breath, headache, nausea, vomit, diarrhea, constipation or vision changes ROS: Negative except above. Past Medical History: Diagnosis Date Campylobacter diarrhea 01/2018 Condyloma acuminatum Costochondritis in past had sharp CP that was intercostal spasm - had fnegative stress Echo Essential hypertension with goal blood pressure less than 140/90 09/18/2023 LUIS (generalized anxiety disorder) 12/01/2015 Hot flash in male 12/01/2015 Irritable bowel syndrome with diarrhea 05/08/2018 Lumbar disc herniation 09/18/2023 Lumbar stenosis OCD (obsessive compulsive disorder) 12/01/2015 Panic attacks 12/01/2015 Plantar wart Right inguinal hernia 05/08/2018 Past Surgical History: Procedure Laterality Date COLONOSCOPY, DIAGNOSTIC (RECTUM) 10/03/2014 proximal hyperplastic polyp, anal fissure, repeat 5 yrs/COLONOSCOPY FLEXIBLE PROXIMAL DIAGNOSTIC performed by Caleb Pastrana MD at ENDOSCOPY [facility] COLONOSCOPY, DIAGNOSTIC (RECTUM) 06/01/2020 hyperplastic polyp, diverticuosis, repeat 5 yrs / COLONOSCOPY FLEXIBLE PROXIMAL DIAGNOSTIC performed by Caleb Pastrana MD at ENDOSCOPY [facility] ORCHIOPEXY ([place]) 1987 undescended testicle REPAIR INITIAL INCISIONAL OR VENTRAL HERNIA; REDUCIBLE N/A 05/22/2021 REPAIR INITIAL INCISIONAL /VENTRAL HERNIA REDUCIBLE performed by Ba French MD at OR [facility] REPAIR INITIAL INGUINAL HERNIA REDUCIBLE AGE 5 OR MORE Right 07/20/2018 07/20/2018 Right inguinal hernia repair performed by Dr. 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 Tobacco Use Smoking status: Never Smokeless tobacco: Never Substance and Sexual Activity Alcohol use: Yes Comment: 2/week. 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 has stopped bars etc. Drug use: No Sexual activity: Yes Partners: Female control/protection: Condom Comment: 15. 2 kids 19 & 16 women partners.+hx sex addiction. Other Topics Concern Not on file Social History Narrative Likes-time w/family, photography, fitness, volleyball, landscaping Social Determinants of Health Financial Resource Strain: Low Risk (02/25/2024) Financial Resource Strain Do you have any trouble paying for your medications, or do you think you might in the future? (Adult - for ages 18 years and over): No Does your family have trouble paying for medicine? (Household - for ages 0-17 years): Not on file Food Insecurity: No Food Insecurity (02/25/2024) Food Insecurity Do you need food for this week? (Adult - for ages 18 years and over): No Are you able to get enough food for your family? (Household - for ages 0-17 years): Not on file Does your family need food this week? (Household - for ages 0-17 years): Not on file Do you always have enough food for your family? (Household - for ages 0-17 years): Not on file Transportation Needs: No Transportation Needs (02/25/2024) Transportation Needs Do you have trouble getting a ride to medical visits or work? (Adult - for ages 18 years and over):Not on file Does your family have a hard time getting a ride to doctors visits? (Household - for ages 0-17 years): Not on file Has lack of transportation kept you from medical appointments, meetings, work, or from getting things needed for daily living? Check all that apply. (Adult - for ages 18 years and over): No Do you (or your family) have trouble finding or paying for a ride (transportation)? (Household - for ages 0-17 years): Not on file Social Connections: Socially Integrated (02/25/2024) Social Connections How often do you feel lonely or isolated from those around you? (Adult - for ages 18 years and over): Never Housing Stability: Low Risk (02/25/2024) Housing Stability Do you currently live in a skilled nursing or have no steady place to sleep at night? (Adult - for ages 18 years and over): No Do you think you are at risk of becoming homeless? (Adult - for ages 18 years and over): Not on file Does your family worry about paying for your home or becoming homeless? (Household - for ages 0-17 years): Not on file Are you homeless or worried that you might be in the future? (Adult - for ages 18 years and over): No Are you (or your family) homeless or worried that you might be in the future? (Household - for ages0-17 years): Not on file Family History Problem Relation Name Age of Onset Hypertension Father diagnosed in 30s Hypertension Sister diagnosed in 30s Hypertension Brother diagnosed in 30s Heart attack Brother 49 3 stents. Current Outpatient Medications Medication Sig Dispense Refill Cetirizine HCl 10 MG Oral Tablet (ZyrTEC) Take 1 Tablet by mouth in the morning. Ibuprofen 200 MG Oral Tablet (Motrin) Take 2 Tablets by mouth as needed. No current facility-administered medications for this visit. Physical: BP 126/80 | Pulse 59 | Temp 35.7 C (96.2 F) (Tympanic) | Resp 16 | Ht 1.852 m (6' 0.9") | Wt 105.6 kg (232 lb 14.4 oz) | SpO2 97% | BMI 30.81 kg/m | BSA 2.33 m General-No apparent Distress Head, Eyes, Ears, Nose, Throat--Normocephalic, atraumatic Neck-Supple Lymph-no lymphadenopathy Lungs-Clear to Auscultation bilaterally Cardiovascular--Regular rate & Rhythm, +s1, s2, no murmur Mskel +pain lateral epicondyle/lat forearm w/ROM against resist. No swelling/redness Skin- +plantar wart right foot Mottled skin top of head Abdomen-soft, nontender, nondistended + bowel sounds Extremities--no edema Neuro-alert & oriented x3 (Z00.00) Well adult exam (primary encounter diagnosis) Plan: counseled on diet/exercise Shots UTD Labs reviewed/ordered Upper ednoscopy sched for this month (I10) Essential hypertension with goal blood pressure less than 140/90 Plan: ALBUMIN / CREATININE RATIO, URINE Doing well off meds. (R07.89) Chest discomfort Plan: f/u upper endoscopy. Does not sound cardiac (R13.10) Dysphagia, unspecified type Plan: CBC WITH WBC DIFFERENTIAL, BASIC METABOLIC PANEL scope (Z13.1) Screening for diabetes mellitus Plan: HEMOGLOBIN A1C (M67.80) Tendonosis Plan: PHYSICAL THERAPY REFERRAL OP (F41.1) LUIS (generalized anxiety disorder) Plan: cont mgmt (M48.062) Spinal stenosis of lumbar region with neurogenic claudication Plan: cont exercises, stretch (This note was completed using the dictation program Fluency Direct. As such, there may be misspellings, word substitutions, or other variations that should not change the essence of the clinical content of this encounter note.If there is need for further clarification, please direct questions to the provider listed above.) Dominick Baker MD documented in this encounter Nursing Notes * Saira Stevens LPN - 02/25/2024 8:35 AM EDT The patient has been properly identified by confirmation of name and date of . Chief Complaint Patient presents with Physical-Exam Yearly physical Stopped BP meds. documented in this encounter Plan of Treatment Upcoming Encounters Date Type Department Care Team (Latest Contact Info) Description 03/17/2024 8:00 AM EDT Hospital Encounter [facility]O [facility], Endoscopy Room [facility] [address] [place] [phone] Oliva Monzon MD [address] [place] [address] 03/17/2024 8:00 AM EDT - 03/17/2024 8:30 AM EDT Surgery [facility], Endoscopy Room [facility] [address] [place] [phone] Oliva Monzon MD [address] [place] [address] ESOPHAGOGASTRODUODENOSCOPY (EGD), FLEXIBLE, TRANSORAL, DIAGNOSTIC 03/31/2024 7:40 AM EDT Office Visit [facility] [address] [place] [address] Elizabeth Freedman CRNP [address] [place] [address] 03/21/2025 8:20 AM EDT Office Visit [facility] [address] [place] [address] Dominick Baker MD [address] [place] [address] Scheduled Orders Name Type Priority Associated Diagnoses Orde r Schedule ALBUMIN / CREATININE RATIO, URINE Lab Routine Essential hypertension with goal blood pressure less than 140/90 Expected: 02/25/2024, Expires: 02/24/2025 CBC WITH WBC DIFFERENTIAL Lab Routine Dysphagia, unspecified type Ordered: 02/25/2024 BASIC METABOLIC PANEL Lab Routine Dysphagia, unspecified type Ordered: 02/25/2024 HEMOGLOBIN A1C Lab Routine Screening for diabetes mellitus Ordered: 02/25/2024 Scheduled Procedures Name Priority Associated Diagnoses Date/Ti va ESOPHAGOGASTRODUODENOSCOPY ( EGD), FLEXIBLE, TRANSORAL, DIAGNOSTIC Abdominal pain 03/17/2024 8:00 AM EDT COLONOSCOPY FLEXIBLE PROXIMA L DIAGNOSTIC Recall History of colon polyps Scheduled Referrals Name Type Priority Associated Diagnoses Orde r Schedule PHYSICAL THERAPY REFERRAL OP Referral Within 10 days (routine) Tendonosis Ordered: 02/25/2024 Health Maintenance Due Date Last Done Comments [...] this encounter Medical Devices Implanted Type Area Janitor Custodian Device Identifier Shelf Expiration Date Model / Serial / Lot Patch Hernia Ventralex l - [id number] Implanted:Qty: 1 on 05/22/2021 by Ba rFench MD at OR [facility] N/A: Abdomen CR BARD : DAVOL 07/31/2021 [id number] / / [id number] documented as of this encounter Visit Diagnoses Diagnosis Well adult exam- Primary Routine general medical examination at a health care facility Essential hypertension with goal blood pressure less than 140/90 Chest discomfort Other chest pain Dysphagia, unspecified type Screening for diabetes mellitus Tendonosis LUIS (generalized anxiety disorder) Generalized anxiety disorder Spinal stenosis of lumbar region with neurogenic claudication Spinal stenosis, lumbar region, with neurogenic claudication Abdominal pain Abdominal pain, unspecified site documented in this encounter Care Teams Frequency Checker Relationship Specialty Start Date End Date Dominick Baker MD [address] [place] [address] PCP - General Family Medicine 12/01/15 documented as of this encounter
--- OUTSIDE RECORDS SUMMARY | 2024-03-02 04:53 | External Medical Summary | Summary of Care ---
Author Name Unknown Organization [facility] Address [address] [place] [address] Phone [phone] Care Team Providers Care Cover Maker Name Role Phone Dominick Baker MD Primary Care Provider + Reason for Visit * Reason Onset Date Comments Blood Pressure Check 11/06/2023 Encounter Details Date Type Department Care Team (Late st Contact Info) Description 11/06/2023 Telephone Family Practice [facility] [address] [place] [address] Dominick Baker MD [address] [place] [address] Blood Pressure Check Allergies Active Allergy Reactions [...] mRNA, LNP-s, No Pre serve, 2-Dose Series ([employer]) 11/01/2020,10/11/2020 Covid-19, Mrna, Lnp-s, Pf, Bivalent, 30 Mcg, IM, 12 yrs and above ([employer]) 04/25/2022 Seasonal Influenza, QUAD, wi th Preserv, [...] encounter Miscellaneous Notes * Telephone Encounter - Bianca Lanier LPN - 11/06/2023 3:51 PM EDT Patient(s) returned call. Informed of message. Verbalized understanding. * Telephone Encounter - Gautam Fisher RN - 11/06/2023 3:32 PM EDT Called, left message for patient to return call to the dedicated nurse call center. Please see Dr. Baker's previous message. * Telephone Encounter - Dominick Baker MD - 11/06/2023 11:20 AM EDT Let pt know BP borderline at home but ok in office--can continue current meds, healthy eating/exercise & we'll recheck at appt in February * Telephone Encounter - Jamee Cornejo LPN - 11/06/2023 8:48 AM EDT Humberto Ybarra presented for blood [...] 02/25/2024 8:40 AM EDT Office Visit [facility] [address] [place] [address] Dominick Baker MD [address] [place] [address] 03/17/2024 8:00 AM EDT Hospital Encounter [facility], Endoscopy Room [facility] [address] [place] [phone] Oliva Monzon MD [address] [place] [address] 03/17/2024 8:00 AM EDT - 03/17/2024 8:30 AM EDT Surgery ENDO [facility], Endoscopy Room [facility] [address] [place] [phone] Oliva Monzon MD [address] [place] [address] ESOPHAGOGASTRODUODENOSCOPY (EGD), FLEXIBLE, TRANSORAL, DIAGNOSTIC Scheduled Procedures [...] this encounter Medical Devices Implanted Type Area Web Application Developer Device Identifier Shelf Expiration Date Model / Serial / Lot Patch Hernia Ventralex l - [id number] Implanted:Qty: 1 on 05/22/2021 by Ba French MD at OR [facility] N/A: Abdomen CR BARD : DAVOL 07/31/2021 [id number] / / [id number] documented as of this encounter Care Teams Cover Maker Relationship Specialty Start Date End Date Dominick Baker MD [address] [place] [address] PCP - General Family Medicine 12/01/15 documented as of this encounter
--- OUTSIDE RECORDS SUMMARY | 2024-03-02 04:53 | External Medical Summary | Summary of Care ---
Author Name Unknown Organization [facility] Address [address] [place] [address] Phone [phone] Care Team Providers Care Captain Fire Prevention Bureau Name Role Phone Dominick Baker MD Primary Care Provider + Encounter Details Date Type Department Care Team (Late st Contact Info) Description 11/06/2023 Telephone Family Practice [facility] [address] [facility] [place] [address] Dominick Baker MD [address] [facility] [address] Allergies Active Allergy Reactions Criticality Noted Date [...] mRNA, LNP-s, No Pre serve, 2-Dose Series ([employer]) 11/01/2020,10/11/2020 Covid-19, Mrna, Lnp-s, Pf, Bivalent, 30 Mcg, IM, 12 yrs and above ([employer]) 04/25/2022 Seasonal Influenza, QUAD, wi th Preserv, [...] encounter Miscellaneous Notes * Telephone Encounter - Jamee Cornejo LPN [...] Description 02/25/2024 8:40 AM EDT Office Visit [facility] [address] [place] [address] Dominick Baker MD [address] [place] [address] 03/17/2024 8:00 AM EDT Hospital Encounter ENDO OSS[facility], Endoscopy Room [facility] [address] [place] [phone] Oliva Monzon MD [address] [place] [address] 03/17/2024 8:00 AM EDT - 03/17/2024 8:30 AM EDT Surgery ENDO [facility], Endoscopy Room [facility] [address] [place] [phone] Oliva Monzon MD [address] [place] [address] ESOPHAGOGASTRODUODENOSCOPY (EGD), FLEXIBLE, TRANSORAL, DIAGNOSTIC Scheduled Procedures [...] 09/01/2017, 01/31/2018, Additional history exists COVID-19 Vaccine (2022-24 season) 2023 04/25/2022, 11/01/2020, 10/11/2020 Depression Screening [...] this encounter Medical Devices Implanted Type Area Offset Label Rewinder Device Identifier Shelf Expiration Date Model / Serial / Lot Patch Hernia Ventralex l - [id number] Implanted:Qty: 1 on 05/22/2021 by Ba French MD at OR [facility] N/A: Abdomen CR BARD : DAVOL 07/31/2021 [id number] / / [id number] documented as of this encounter Care Teams Captain Fire Prevention Bureau Relationship Specialty Start Date End Date Dominick Baker MD [address] [place] [address] PCP - General Family Medicine 12/01/15 documented as of this encounter
--- OUTSIDE RECORDS SUMMARY | 2024-03-02 04:53 | External Medical Summary | Summary of Care ---
Author Name Unknown Organization [facility] Address [address] [facility] [address] Phone [phone] Care Team Providers Care Band Tier Name Role Phone Dominick Baker MD Primary Care Provider + Reason for Visit * Reason Onset Date Comments Blood Pressure Check 11/06/2023 Encounter Details Date Type Department Care Team (Late st Contact Info) Description 11/06/2023 Telephone Family Practice [facility] [address] [place] [address] Dominick Baker MD [address] [place] [address] Blood Pressure Check Allergies Active Allergy Reactions [...] mRNA, LNP-s, No Pre serve, 2-Dose Series ([employer]) 11/01/2020,10/11/2020 Covid-19, Mrna, Lnp-s, Pf, Bivalent, 30 Mcg, IM, 12 yrs and above ([employer]) 04/25/2022 Seasonal Influenza, QUAD, wi th Preserv, [...] encounter Miscellaneous Notes * Telephone Encounter - Gautam Fisher RN [...] 02/25/2024 8:40 AM EDT Office Visit Family [facility] [address] [place] [address] Dominick Baker MD [address] [place] [address] 03/17/2024 8:00 AM EDT Hospital Encounter ENDO [facility], Endoscopy Room [facility] [address] [place] [phone] Oliva Monzon MD [address] [place] [address] 03/17/2024 8:00 AM EDT - 03/17/2024 8:30 AM EDT Surgery ENDO [facility], Endoscopy Room [facility] [address] [place] [phone] Oliva Monzon MD [address] [place] [address] ESOPHAGOGASTRODUODENOSCOPY (EGD), FLEXIBLE, TRANSORAL, DIAGNOSTIC Scheduled Procedures [...] this encounter Medical Devices Implanted Type Area Tag And Label Cutter Device Identifier Shelf Expiration Date Model / Serial / Lot Patch Hernia Ventralex Sml - [id number] Implanted:Qty: 1 on 05/22/2021 by Ba French MD at OR [facility] N/A: Abdomen CR BARD : DAVOL 07/31/2021 [id number] / / [id number] documented as of this encounter Care Teams Band Tier Relationship Specialty Start Date End Date Dominick Baker MD [address] [place] [address] PCP - General Family Medicine 12/01/15 documented as of this encounter
--- OUTSIDE RECORDS SUMMARY | 2024-03-02 04:54 | External Medical Summary | Summary of Care ---
Author Name Unknown Organization [facility] Address [address] [facility] [place] [address] Phone [phone] Care Team Providers Care Asbestos Pipe Supervisor Name Role Phone Dominick Baker MD Primary Care Provider + Reason for Visit * Reason Onset Date Comments Appointment 09/18/2023 PHYSICAL THERAPY Encounter Details Date Type Department Care Team (Late st Contact Info) Description 09/18/2023 Telephone Family Practice [facility] [address] [place] [address] Dominick Baker MD [address] [place] [address] Appointment (PHYSICAL THERAPY) Allergies Active Allergy Reactions Criticality Noted Date Comments Pollen Other (Please comment) 01/08/2016 Itchy eyes, runny nose, sneezing Ragweed Other (Please comment) 01/08/2016 Itchy eyes, runny nose, sneezing documented as of this encounter (statuses as of 10/01/2023) Medications Medication Sig Dispensed Refills Start Date [...] as of this encounter (statuses as of 10/01/2023) Active Problems Problem Noted Date Diagnosed Date [...] as of this encounter (statuses as of 10/01/2023) Resolved Problems Problem Noted Date Diagnosed Date Resolved Date Right inguinal hernia 05/08/20182018 documented as of this encounter (statuses as of 10/01/2023) Immunizations Name Administration Dates Next Due COVID-19 mRNA, LNP-s, No Pre serve, 2-Dose Series ([employer]) 11/01/2020,10/11/2020 Covid-19, Mrna, Lnp-s, Pf, Bivalent, 30 Mcg, IM, 12 yrs and above ([employer]) 04/25/2022 Seasonal Influenza, QUAD, wi th Preserv, [...] encounter Miscellaneous Notes * Telephone Encounter - Sanchez Christopher, RUSS - 10/01/2023 3:28 PM EST I spoke to pt today 10/01/2023 . He is holding off on scheduling both Podiatry and Physical Therapyfor now. He is overwhelmed w/ things . Pt will call us when he is ready to get scheduled. * Telephone Encounter - Sanchez Christopher OSA - 09/18/2023 1:43 PM EST I sent pt a [employer] message to see if making own appt or if we are scheduling fo rhim documented in this encounter Plan of Treatment Upcoming Encounters Date Type Department Care Team (Latest Contact Info) Description 11/06/2023 8:30 AM EDT Nurse Only Ancillary [facility] [address] [place] [address] Nurse Abhijit [facility] [address] [place] [address] 02/25/2024 8:40 AM EDT Office Visit Family Practice [facility] [address] [place] [address] Dominick Baker MD [address] [place] [address] 03/17/2024 8:00 AM EDT Hospital Encounter ENDO OSS[facility], Endoscopy Room [facility] [address] [place] [address] Oliva Monzon MD [address] [place] [address] 03/17/2024 8:00 AM EDT - 03/17/2024 8:30 AM EDT Surgery ENDO [facility], Endoscopy Room [facility] [address] [place] [address] Oliva Monzon MD [address] [place] [address] ESOPHAGOGASTRODUODENOSCOPY (EGD), FLEXIBLE, TRANSORAL, DIAGNOSTIC Scheduled Procedures [...] Vaccine ( season) 2023 04/25/2022, 11/01/2020, 10/11/2020 Lipid Panel 01/12/2024 01/11/2019, 08/01/2011 Depression Screening 02/21/2024 02/20/2023 COLONOSCOPY-EVERY 5 YRS AGES 18-100 06/01/2025 06/01/2020, 06/01/2020, 10/03/2014, Additional history exists DTaP,Tdap,and Td Vaccines (3 - Td or [...] this encounter Medical Devices Implanted Type Area Tobacco Blender Device Identifier Shelf Expiration Date Model / Serial / Lot Patch Hernia Ventralex Sml - [id number] Implanted:Qty: 1 on 05/22/2021 by Ba French MD at OR [facility] N/A: Abdomen CR BARD : DAVOL 07/31/2021 [id number] / / [id number] documented as of this encounter Care Teams Asbestos Pipe Supervisor Relationship Specialty Start Date End Date Dominick Baker MD [address] [place] [address] PCP - General Family Medicine 12/01/15 documented as of this encounter
--- OUTSIDE RECORDS SUMMARY | 2024-03-02 04:54 | External Medical Summary | Summary of Care ---
Author Name Unknown Organization [facility] Address [address] [place] [address] Phone [phone] Care Team Providers Care Toolroom Checker Name Role Phone Dominick Baker MD Primary Care Provider + Reason for Referral * Ancillary Services (Within 30 days (routine)) - Pending Review Specialty Diagnoses / Procedures Referred By Phill kitchen Referred To Contact Gastroenterology Diagnoses Upper abdominal pain Dominick Baker MD [address] [place] [address] Referral ID Status Reason Start Date Expiration Date Visits Requested Visits Authorized [id number] Pending Review Ancillary Services Required 09/18/[phone] Question Answer Referral Priority Within 30 days (routine) Where should this appointment be scheduled? [facility] Comments Upper Endoscopy ASGE Guidelines Upper abdominal symptoms that persist despite an appropriate trial of therapy--hx bowel blockage, feels possible spasm ADDITIONAL INFORMATION 1. Is the patient on Coumadin? No 2. Is the patient on Pradaxa? No * Evaluate & Treat - Unlimited Visits (Within 30 days (routine)) - Pending Review Specialty Diagnoses / Procedures Referred By Phill kitchen Referred To Contact Physical Therapy / Physical Medicine And Rehab Diagnoses Lateral epicondylitis of right elbow Dominick Baker MD [address] [place] [address] Referral ID Status Reason Start Date Expiration Date Visits Requested Visits Authorized [id number] Pending Review Specialty Services Required 09/18/[phone] Question Answer Referral Priority Within 30 days (routine) Where should this appointment be scheduled? [facility] Comments Right lateral epicondylitis right elbow. * Evaluate & Treat - Unlimited Visits (Within 30 days (routine)) - Pending Review Specialty Diagnoses / Procedures Referred By Phill kitchen Referred To Contact Podiatry Diagnoses Toenail deformity Dominick Baker MD [address] [place] [address] Referral ID Status Reason Start Date Expiration Date Visits Requested Visits Authorized [id number] Pending Review Specialty Services Required 09/18/[phone] Question Answer Referral Priority Within 30 days (routine) Where should this appointment be scheduled? [facility] Which condition are you referring this patient for? Toenail Removal Comments Abnormal toenail growth 2nd RIGHT toe. Reason for Visit * Reason Comments Return Visit 6 month return-[facility] BP readings for the last few months Encounter Details Date Type Department Care Team (Latest Contact Info) Description 09/18/2023 8:00 AM EST Office Visit Family [facility] [address] [place] [address] Dominick Baker MD [address] [place] [address] Lumbar disc herniation*; Spinal stenosis of lumbar region with neurogenic claudication; Essential hypertension with goal blood pressure less than 140/90; Lipid screening; Screening for diabetes mellitus; Toenail deformity; Lateral epicondylitis of right elbow; Upper abdominal pain Allergies Active Allergy Reactions Criticality Noted Date Comments Pollen Other (Please comment) 01/08/2016 Itchy eyes, runny nose, sneezing Ragweed Other (Please comment) 01/08/2016 Itchy eyes, runny nose, sneezing documented as of this encounter (statuses as of 09/18/2023) Medications Medication Sig Dispensed Refills Start Date [...] as of this encounter (statuses as of 09/18/2023) Active Problems Problem Noted Date Diagnosed Date [...] as of this encounter (statuses as of 09/18/2023) Resolved Problems Problem Noted Date Diagnosed Date Resolved Date Right inguinal hernia 05/08/20182018 documented as of this encounter (statuses as of 09/18/2023) Immunizations Name Administration Dates Next Due COVID-19 mRNA, LNP-s, No Pre serve, 2-Dose Series ([employer]) 11/01/2020,10/11/2020 Covid-19, Mrna, Lnp-s, Pf, Bivalent, 30 [...] Sign Reading Time Taken Comments Blood Pressure 142/90 09/18/2023 8:03 AM EST Pulse 74 09/18/2023 8:03 AM EST Temperature - - Respiratory Rate 16 09/18/2023 8:03 AM EST Oxygen Saturation 98% 09/18/2023 8:03 AM EST Inhaled Oxygen Concentration - - Weight 108.9 kg (240 lb) 09/18/2023 8:03 AM EST Height - - Body Mass Index 31.75 02/20/2023 8:21 AM EDT documented in this encounter Progress Notes * Domincik Baker MD - 09/18/2023 8:42 AM EST SUBJECTIVE: Humberto Ybarra is a 47 year old male here for Return Visit (6 month return- elevated BP readings for the last few months) . Here for f/u. Of stuff going on. He started getting some right upper thigh numbness pain in June and July it was quite severe went to the emergency room. Had MRI showing compression L3-L4 and3 herniated discs. He has seen pain management at the hospital and had a August 29 right L3-L4 epidural steroid injection. Had minimal 10% improvement over the last 2 weeks afterwards. He is currently taking Celebrex 100 mg twice a day plus gabapentin 300 mg in the morning and 300 atnight was prescribed 600 night but has not done that he it very often. Pain is worse with standing for long time or sitting for long time or lying down for long time so he has to change positions frequently. He has a surgical consult with Dr. Mccullough. His blood pressures have been running high at home consistently in the 140s over 90s. This was evenpreceding this. He also complains of some ongoing right lateral elbow pain. Also toenail deformity after trauma. Also intermittent spasm/abd pain a couple times a month. Hx obstruction in past. ROS: Negative except above. Past Medical History: [...] performed by Caleb Pastrana MD at ENDOSCOPY [facility] COLONOSCOPY, DIAGNOSTIC (RECTUM) 06/01/2020 hyperplastic polyp, diverticuosis, repeat 5 yrs / COLONOSCOPY FLEXIBLE PROXIMAL DIAGNOSTIC performed by Caleb Pastrana MD at ENDOSCOPY [facility] ORCHIOPEXY ([place]) 1987 undescended testicle REPAIR INITIAL INCISIONAL OR VENTRAL HERNIA; REDUCIBLE N/A 05/22/2021 REPAIR INITIAL INCISIONAL /VENTRAL HERNIA REDUCIBLE performed by Ba French MD at OR [facility] REPAIR INITIAL INGUINAL HERNIA REDUCIBLE AGE 5 OR MORE Right 07/20/2018 07/20/2018 Right inguinal hernia repair performed by Dr. 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 Tobacco Use Smoking status: Never Smokeless tobacco: Never Substance and Sexual Activity Alcohol use: Yes Comment: 2/week. 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 has stopped bars etc. Drug use: No Sexual activity: Yes Partners: Female control/protection: Condom Comment: 15. 2 kids 10&7. women partners.+hx sex addiction. Other Topics Concern Not on file Social History Narrative Likes-time w/family, photography, fitness, volleyball, landscaping Social Determinants of Health Financial Resource Strain: Not on file Food Insecurity: No Food Insecurity (02/20/2023) Hunger Vital Sign Worried About Running Out of Food in the Last Year: Never true Ran Out of Food in the Last Year: Never true Transportation Needs: Not on file Physical Activity: Not on file Stress: Not on file Social Connections: Not on file Intimate Partner Violence: Not on file Housing Stability: Not on file Family History Problem Relation Age of Onset Hypertension Father diagnosed in 30s Hypertension Sister diagnosed in 30s Hypertension Brother diagnosed in 30s Heart attack Brother 49 3 stents. Current Outpatient Medications Medication Sig Dispense Refill Cetirizine HCl 10 MG Oral Tablet (ZyrTEC) Take 1 Tablet by mouth in the morning. Ibuprofen 200 MG Oral Tablet (Motrin) Take 2 Tablets by mouth as needed. Celecoxib 100 MG Oral Capsule (CeleBREX) Take 1 Capsule by mouth 2 times a day as needed for Pain, Mild. Gabapentin 300 MG Oral Capsule (Neurontin) Take 1 Capsule by mouth in the morning and 1 Capsule before bedtime. TAKE 1 CAPSULE BY MOUTH EVERY MORNING AND TAKE TWO CAPSULES ONE HOUR PRIOR TO BEDTIME . amLODIPine Besylate 5 MG Oral Tablet (Norvasc) Take 1 Tablet by mouth in the morning. 90 Tablet 3 No current facility-administered medications for this visit. Physical: BP 142/90 | Pulse 74 | Resp 16 | Wt 108.9 kg (240 lb) | SpO2 98% | BMI 31.75 kg/m | BSA 2.37 m General-No apparent Distress Head, Eyes, Ears, Nose, Throat--Normocephalic, atraumatic Neck-Supple Lymph-no lymphadenopathy Lungs-Clear to Auscultation bilaterally Cardiovascular--Regular rate & Rhythm, +s1, s2, no murmur Abdomen-soft, nontender, nondistended + bowel sounds Extremities--no edema Mskel tender right lateral epicondyle elbow Skin-2nd toe right foot nail deformity Neuro-alert & oriented x3 (M51.26) Lumbar disc herniation (primary encounter diagnosis) Plan: f/u pain mgmt for 2nd BHARATI If not helpful get surgery consult--list surgeons given, encouraged 2nd opinion as well for surg Labs ordered (M48.062) Spinal stenosis of lumbar region with neurogenic claudication Plan: as above (I10) Essential hypertension with goal blood pressure less than 140/90 Plan: amLODIPine Besylate 5 MG Oral Tablet (Norvasc) Likely 2ary NSAID use, wt gain and pain. counseled on diet/exercise Counseled on use, risk, benefits, and alternatives of medications. Questions answered, patient expressed understanding. (Z13.220) Lipid screening Plan: LIPID PANEL WITH DIRECT LDL IF TG IS HIGH (Z13.1) Screening for diabetes mellitus Plan: BASIC METABOLIC PANEL, HEMOGLOBIN A1C (L60.8) Toenail deformity Plan: PODIATRY REFERRAL OP (M77.11) Lateral epicondylitis of right elbow Plan: PHYSICAL THERAPY REFERRAL OP (R10.10) Upper abdominal pain Plan: UPPER ENDOSCOPY GI REFERRAL OP ?stricture. If WNL consider trial bentyl. Consider GI consult. Cc: Jasen Fajardo I spent a total of 40-54 minutes (exact time 47 mins) on the date of service in preparation, delivery, and documentation of the care provided to Hubmerto Ybarra excluding any time spent in the performance of separately billed services. (This note was completed using the dictation program Fluency Direct. As such, there may be misspellings, word substitutions, or other variations that should not change the essence of the clinical content of this encounter note.If there is need for further clarification, please direct questions to the provider listed above.) Dominick Baker MD documented in this encounter Nursing Notes * Saira Stevens LPN - 09/18/2023 8:03 AM EST The patient has been properly identified by confirmation of name and date of . Chief Complaint Patient presents with Return Visit 6 month return Elevated BP readings over the past 3 months. OV on -09/04 with pain clinic BP was 136/96 -08/19 with pain clinic BP was taken 3 times-143/100, 138/94 & 155/88 -08/14 with pain clinic BP was 153/98 documented in this encounter Plan of Treatment Upcoming Encounters Date Type Department Care Team (Late st Contact Info) Description 11/06/2023 8:30 AM EDT Nurse Only Ancillary [facility] [address] [place] [place] [address] Nurse Abhijit [facility] Ronny Licea [address] [place] [address] 02/25/2024 8:40 AM EDT Office Visit Family Practice [facility] [address] [place] [address] Dominick Baker MD [address] [place] [address] Scheduled Orders Name Type Priority Associated Diagnoses Orde r Schedule LIPID PANEL WITH DIRECT LDL IF TG IS HIGH Lab Routine Lipid screening Ordered: 09/18/2023 BASIC METABOLIC PANEL Lab Routine Screening for diabetes mellitus Ordered: 09/18/2023 HEMOGLOBIN A1C Lab Routine Screening for diabetes mellitus Ordered: 09/18/2023 Scheduled Procedures Name Priority Associated Diagnoses Date/Ti me COLONOSCOPY FLEXIBLE PROXIMAL DIAGNOSTIC Recall History of colon polyps Scheduled Referrals Name Type Priority Associated Diagnoses Orde r Schedule PODIATRY REFERRAL OP Referral Within 30 days (routine) Toenail deformity Ordered: 09/18/2023 PHYSICAL THERAPY REFERRAL OP Referral Within 30 days (routine) Lateral epicondylitis of right elbow Ordered: 09/18/2023 UPPER ENDOSCOPY GI REFERRAL OP Referral Within 30 days (routine) Upper abdominal pain Ordered: 09/18/2023 Health Maintenance Due Date Last Done Comments Hepatitis B (1 of 3 - 3-dose series) 1975 Albumin/Creatinine Ratio 10/23/1993 Hepatitis C Screening 10/23/1993 GFR 07/24/2019 07/24/2018, 06/05, 01/31/2018, Additional history [...] this encounter Medical Devices Implanted Type Area Modular Set Crew Member Device Identifier Shelf Expiration Date Model / Serial / Lot Patch Hernia Ventralex [facility] - [id number] Implanted:Qty: 1 on 05/22/2021 by Ba French MD at OR [facility] N/A: Abdomen CR BARD : DAVOL 07/31/2021 [id number] / / [id number] documented as of this encounter Visit Diagnoses Diagnosis Lumbar disc herniation- Primary Displacement of lumbar intervertebral disc without myelopathy Spinal stenosis of lumbar region with neurogenic claudication Spinal stenosis, lumbar region, with neurogenic claudication Essential hypertension with goal blood pressure less than 140/90 Lipid screening Screening for lipoid disorders Screening for diabetes mellitus Toenail deformity Unspecified disease of nail Lateral epicondylitis of right elbow Lateral epicondylitis of elbow Upper abdominal pain Abdominal pain, other specified site documented in this encounter Care Teams Toolroom Checker Relationship Specialty Start Date End Date Dominick Baker MD [address] [facility] [place] [address] PCP - General Family Medicine 12/01/15 documented as of this encounter"
--- OUTSIDE RECORDS SUMMARY | 2024-03-02 04:54 | External Medical Summary | Summary of Care ---
Author Name Unknown Organization [facility] Address [address] [place] [address] Phone [phone] Care Team Providers Care Tearoom Hostess Name Role Phone Dominick Baker MD Primary Care Provider + Reason for Visit * Reason Onset Date Comments Appointment 09/18/2023 PHYSICAL THERAPY Encounter Details Date Type Department Care Team (Late st Contact Info) Description 09/18/2023 Telephone Family Practice [facility] [address] [place] [address] Dominick Baker MD [address] [place] [address] Appointment (PHYSICAL THERAPY) Allergies Active Allergy Reactions [...] mRNA, LNP-s, No Pre serve, 2-Dose Series ([employer]) 11/01/2020,10/11/2020 Covid-19, Mrna, Lnp-s, Pf, Bivalent, 30 Mcg, IM, 12 yrs and above ([employer]) 04/25/2022 Seasonal Influenza, QUAD, wi th Preserv, [...] Miscellaneous Notes * Telephone Encounter - Sanchez Christopher OSA - 09/18/2023 1:43 PM EST I sent pt a IPWirelessG message to see if making own appt or if we are scheduling fo rhim documented in this encounter Plan of Treatment Upcoming Encounters Date Type Department Care Team (Latest Contact Info) Description 11/06/2023 8:30 AM EDT Nurse Only Ancillary Ran [facility] [address] [place] [address] Nurse Willis Lacey [address] [place] [address] 02/25/2024 8:40 AM EDT [facility] [address] [place] [address] Dominick Baker MD [address] [place] [address] 03/17/2024 8:00 AM EDT Hospital Encounter ENDO [facility], Endoscopy Room [facility] [address] [place] [id number] Oliva Monzon MD [address] [place] [address] 03/17/2024 8:00 AM EDT - 03/17/2024 8:30 AM EDT Surgery ENDO [facility], Endoscopy Room [facility] [address] [place] [phone] Oliva Monzon MD [address] [place] [address] ESOPHAGOGASTRODUODENOSCOPY (EGD), FLEXIBLE, TRANSORAL, DIAGNOSTIC Scheduled Procedures Name Priority Associated Diagnoses Date/Ti mo ESOPHAGOGASTRODUODENOSCOPY ( EGD), FLEXIBLE, TRANSORAL, DIAGNOSTIC Abdominal [...] this encounter Medical Devices Implanted Type Area Live Truck Operator Device Identifier Shelf Expiration Date Model / Serial / Lot Patch Hernia Ventralex l - [id number] Implanted:Qty: 1 on 05/22/2021 by Ba French MD at OR [facility] N/A: Abdomen CR BARD : DAVOL 07/31/2021 [id number] / / [id number] documented as of this encounter Care Teams Tearoom Hostess Relationship Specialty Start Date End Date Dominick Baker MD [address] [place] [address] PCP - General Family Medicine 12/01/15 documented as of this encounter
--- OUTSIDE RECORDS SUMMARY | 2024-03-02 04:54 | External Medical Summary | Summary of Care ---
Author Name Unknown Organization [facility] Address [address] [place] [facility] [place] [place] [address] Phone [phone] Care Team Providers Care Forestry Biology Specialist Name Role Phone Dominick Baker MD Primary Care Provider + Reason for Visit * Reason Onset Date Comments Appointment 09/18/2023 UPPER ENDOSCOPY Encounter Details Date Type Department Care Team (Late st Contact Info) Description 09/18/[address] [facility] [address] [place] [address] Dominick Baker MD [address] [place] [phone] Appointment (UPPER ENDOSCOPY) Allergies Active Allergy Reactions Criticality Noted Date Comments Pollen Other (Please comment) 01/08/2016 Itchy eyes, runny nose, sneezing Ragweed Other (Please comment) 01/08/2016 Itchy eyes, runny nose, sneezing documented as of this encounter (statuses as of 09/19/2023) Medications Medication Sig Dispensed Refills Start Date [...] as of this encounter (statuses as of 09/19/2023) Active Problems Problem Noted Date Diagnosed Date [...] as of this encounter (statuses as of 09/19/2023) Resolved Problems Problem Noted Date Diagnosed Date Resolved Date Right inguinal hernia 05/08/20182018 documented as of this encounter (statuses as of 09/19/2023) Immunizations Name Administration Dates Next Due COVID-19 mRNA, LNP-s, No Pre serve, 2-Dose Series ([employer]) 11/01/2020,10/11/2020 Covid-19, Mrna, Lnp-s, Pf, Bivalent, 30 Mcg, IM, 12 yrs and above ([employer]) 04/25/2022 Seasonal Influenza, QUAD, wi th Preserv, [...] encounter Miscellaneous Notes * Telephone Encounter - Rocío Mendoza OSA - 09/19/2023 9:23 AM EST Spoke to pt, has too many other things going on right now. Pt wants to call back when he is ready to schedule. * Telephone Encounter - Sanchez Christopher OSA - 09/18/2023 1:22 PM EST Upper endoscopy ordered for pt. Please contact pt and assist in scheduling., documented in this encounter Plan of Treatment Upcoming Encounters Date Type Department Care Team (Late st Contact Info) Description 11/06/2023 8:30 AM EDT Nurse Only Ancillary [facility] [address] [place] [address] Lacey, Nurse Fam [facility] [address] [place] [address] 02/25/2024 8:40 AM EDT Office Visit Family Practice [facility] [address] [place] [address] Dominick Baker MD [address] [place] [address] Scheduled Procedures Name Priority Associated Diagnoses Date/Ti me COLONOSCOPY FLEXIBLE PROXIMAL DIAGNOSTIC Recall History of colon polyps Health [...] this encounter Medical Devices Implanted Type Area Chief Information Officer Device Identifier Shelf Expiration Date Model / Serial / Lot Patch Hernia Ventralex Sml - [id number] Implanted:Qty: 1 on 05/22/2021 by Ba French MD at OR [facility] N/A: Abdomen CR BARD : DAVOL 07/31/2021 [id number] / / [id number] documented as of this encounter Care Teams Forestry Biology Specialist Relationship Specialty Start Date End Date Dominick Baker MD [address] [place] [address] PCP - General Family Medicine 12/01/15 documented as of this encounter
[2024-03-02 05:18] LABS: BUN Creatinine Ratio 17.4 (10-20); Calcium 9.7 mg/dl (8.6-10.3); Creatinine Clr Calc Pharmacy 104.2 ml/min; Est GFR (African American) 92.5 ml/min; Est GFR (Non-African American) 79.8 ml/min
[2024-03-02 05:31] LABS: Basophils # (auto) 0.02 K/uL (0.00-0.20); Basophils % (auto) 0.2 %; Eosinophils # (auto) 0.12 K/uL (0.00-0.50); Eosinophils % (auto) 1.2 %; Hematocrit (blood only) 44.5 % (42.0-52.0); Hemoglobin 15.2 g/dl (14.0-18.0); Immature Granulocytes # (auto) 0.04 K/uL (0.01-0.20); Immature Granulocytes % (auto) 0.4 %; Lymphocytes # (auto) 0.98 K/uL (1.20-3.40); Lymphocytes % (auto) 9.4 %; Mean Corpuscular Hemoglobin 30.8 pg (25.0-34.0); Mean Corpuscular Hgb Conc 34.2 g/dL (32.0-36.0); Mean Corpuscular Volume 90.1 fL (80.0-100.0); Mean Platelet Volume 9.5 fL (9.4-12.4); Monocytes # (auto) 1.06 K/uL (0.11-0.59); Monocytes % (auto) 10.2 %; Neutrophils # (auto) 8.21 K/uL (1.40-6.50); Neutrophils % (auto) 78.6 %; Platelet Count 239 K/uL (130-400); RDW Coefficient of Variation 13.4 % (11.5-14.5); RDW Standard Deviation 43.9 fL (36.4-46.3); Red Blood Count 4.94 M/uL (4.70-6.10); White Blood Count 10.43 K/ul (4.8-10.8)
[2024-03-02 05:33] LABS: Thyroid Stimulating Hormone 1.627 uIu/ml (0.300-4.500)
[2024-03-02] MEDS: D5W AND LACTATED RINGERS 1,000 ML IV ONE (05:53)
--- NOTE | 2024-03-02 08:37 | Surgery Progress Note ---
Date of Service March 02, 2024 Assessment & Plan (1) SBO (small bowel obstruction): Plan: Looks well and had a BM overnight If continues to feel well, can trial clears later today No plans for exploration at this point Will continue to follow Admission and Anticipated Discharge Date Admission Date: March 02, 2024 Subjective Pt seen and examined. Had a BM around 2AM. Not passing much flatus. No N/V. Abdominal pain improved. Review of Systems Constitutional: no fever and no chills Physical Exam Constitutional: WD/WN, vitals as above Gastrointestinal (Abdomen): Inspection/Auscultation: abdomen normal to inspection; abdomen not distended Percussion/Palpation: + abdomen tender (mild generalized) and abdomen soft; no guarding and no hernia Results & Data Vital Signs (Past 12 Hours) Vital Signs Temp Pulse Pulse Resp BP BP Pulse Ox 03/02/24 07:27 37.0 C 47 L 14 137/84 99 03/02/24 05:10 16 150/88 H 96 03/02/24 04:45 140/90 03/02/24 04:00 17 98 03/02/24 03:39 16 96 03/02/24 03:00 15 95 03/02/24 02:33 16 92 03/02/24 02:00 60 16 149/101 H 100 03/02/24 01:30 62 15 144/95 H 97 03/02/24 01:00 59 L 18 149/88 H 98 03/02/24 00:51 58 L 19 95 03/02/24 00:42 56 L 03/02/24 00:40 57 L 16 146/96 H 97 03/01/24 22:52 36.7 C 68 16 143/98 H 97 O2 Del Method 03/02/24 07:27 Room Air 03/02/24 05:10 Room Air 03/02/24 04:45 03/02/24 04:00 Room Air 03/02/24 03:39 Room Air 03/02/24 03:00 Room Air 03/02/24 02:33 Room Air 03/02/24 02:00 Room Air 03/02/24 01:30 Room Air 03/02/24 01:00 Room Air 03/02/24 00:51 Room Air 03/02/24 00:42 03/02/24 00:40 Room Air 03/01/24 22:52 Room Air PG Care Time/CCT Total # of Minutes Spent Total Time Spent with Patient: Total time spent is greater than 50% in coordination of care (as documented) at patient's floor/unit and/or counseling patient: Coding Level of Care Code 36576 SUB INP/OBS CARE 08/28MIN Diagnoses SBO (small bowel obstruction) K56.609
[2024-03-02] MEDS: KETOROLAC TROMETHAMINE 15 MG/ML VIAL IV PRN (16:05)
[2024-03-02] MEDS ORDERED: ONDANSETRON INJ 2 MG/ML 2 ML VIAL IV PRN (16:40)
--- NOTE | 2024-03-02 17:18 | Hospitalist Progress Note ---
Date of Service March 02, 2024 Assessment & Plan (1) SBO (small bowel obstruction): Plan: SBO (small bowel obstruction): Recurrent SBO Diet was advanced to clears this morning, but patient having return of abdominal pain after lunch Resume n.p.o. status except for ice chips and meds Continue IV fluids, pain control Repeat KUB tomorrow morning Monitor closely Hypertension, not on maintenance medications -- Mildly elevated likely secondary to pain Monitor closely anxiety/OCD -- not on maintenance meds episodic bradycardia -- Sinus, patient well-built, athletic DVT prophylaxis SCDs Full code plan of care discussed with patient in detail and at length all questions answered he is understanding, agreeable, comfortable with the plan of care Admission and Anticipated Discharge Date Admission Date: March 02, 2024 Subjective Follow-up for small bowel obstruction recurrence, etc. Seen resting in bed, not in distress Reports that after having clear liquids for lunch, he started to have central abdominal pain again associated with some nausea Positive BMs earlier today No other new symptoms Review of Systems Review of Systems: all noted and negative except for above Physical Exam Physical Exam: General- oriented x 3, not in distress, speaks in sentences with no effort or accessory muscle use Eyes- anicteric Neck- no JVD Lungs- clear breath sounds bilaterally, no rales/wheezes Heart- normal rate, regular rhythm; no murmurs Abdomen- normal bowel sounds, nondistended, soft, Mild tenderness on the central abdomen Extremities- no pretibial edema, no calf tenderness Neuro- alert, oriented x 3; no gross focal neurologic deficits Skin- warm & dry Results & Data Results & Data Vital Signs (Past 12 Hours) Vital Signs Temp Pulse Resp BP Pulse Ox O2 Del Method 03/02/24 15:22 36.8 C 45 L 16 145/88 H 98 Room Air 03/02/24 07:27 37.0 C 47 L 14 137/84 99 Room Air all noted and reviewed including below
[2024-03-02] MEDS: MoRPHine SULFATE 4 MG/ML 1 ML CARP\\VIAL IV PRN (18:15)
[2024-03-03] MEDS: LACTATED RINGER'S 1,000 ML IV SCH (00:12)
[2024-03-03 06:36] LABS: Basophils # (auto) 0.02 K/uL (0.00-0.20); Basophils % (auto) 0.3 %; Eosinophils % (auto) 3.9 %; Hematocrit (blood only) 42.8 % (42.0-52.0); Hemoglobin 14.1 g/dl (14.0-18.0); Immature Granulocytes # (auto) 0.02 K/uL (0.01-0.20); Immature Granulocytes % (auto) 0.3 %; Lymphocytes # (auto) 1.22 K/uL (1.20-3.40); Lymphocytes % (auto) 15.8 %; Mean Corpuscular Hemoglobin 30.3 pg (25.0-34.0); Mean Corpuscular Hgb Conc 32.9 g/dL (32.0-36.0); Mean Platelet Volume 10.1 fL (9.4-12.4); Monocytes # (auto) 0.88 K/uL (0.11-0.59); Monocytes % (auto) 11.4 %; Neutrophils # (auto) 5.28 K/uL (1.40-6.50); Neutrophils % (auto) 68.3 %; Platelet Count 213 K/uL (130-400); RDW Coefficient of Variation 13.7 % (11.5-14.5); RDW Standard Deviation 46.2 fL (36.4-46.3); Red Blood Count 4.65 M/uL (4.70-6.10); White Blood Count 7.72 K/ul (4.8-10.8)
[2024-03-03 06:37] LABS: BUN Creatinine Ratio 15.2 (10-20); Calcium 8.5 mg/dl (8.6-10.3); Creatinine Clr Calc Pharmacy 105.8 ml/min; Est GFR (African American) 89.5 ml/min; Est GFR (Non-African American) 77.3 ml/min
--- NOTE | 2024-03-03 09:41 | Surgery Progress Note ---
Date of Service March 03, 2024 Assessment & Plan (1) SBO (small bowel obstruction): Plan: Trial clears Abdomen benign If he fails this would order SBFT Admission and Anticipated Discharge Date Admission Date: March 02, 2024 Subjective Pt seen and examined. No abdominal pain. Passing flatus and feels like he wants to have a BM. Had some emesis with clear liquids yesterday. Review of Systems Constitutional: no fever and no chills Gastrointestinal: + nausea and + vomiting; no abdominal pa in Physical Exam Constitutional: WD/WN, vitals as above Gastrointestinal (Abdomen): Inspection/Auscultation: abdomen normal to inspection; abdomen not distended Percussion/Palpation: abdomen soft; abdomen nontender and no guarding Results & Data Vital Signs (Past 12 Hours) Vital Signs Temp Pulse Resp BP Pulse Ox O2 Del Method 03/03/24 07:19 36.4 C L 57 L 16 135/74 98 Room Air PG Care Time/CCT Total # of Minutes Spent Total Time Spent with Patient: Total time spent is greater than 50% in coordination of care (as documented) at patient's floor/unit and/or counseling patient: Coding Level of Care Code 47625 SUB INP/OBS CARE 25MIN Diagnoses SBO (small bowel obstruction) K56.609
--- NOTE | 2024-03-03 10:03 | XRay Report ---
XR KUB/Abdomen 1 view CLINICAL HISTORY: follow up on SBO TECHNIQUE: 1 view of the abdomen was obtained. Comparison: Comparison is made to abdomen radiograph 05/25/2022 FINDINGS: Lung bases are unremarkable. The osseous structures are grossly unremarkable. Gas dilated loops of sm all bowel measuring up to 46 mm. Small stool burden is seen. IMPRESSION: Continued small bowel obstruction. ACT 112: Negative or not required by law. Electronically signed by: Ke Plata M.D. 03/03/2024 10:01 AM
--- NOTE | 2024-03-03 14:43 | Hospitalist Progress Note ---
Date of Service March 03, 2024 Assessment & Plan (1) SBO (small bowel obstruction): Plan: SBO (small bowel obstruction): Recurrent SBO History of umbilical hernia repair in 2020 and right inguinal hernia repair in 2017. Last small bowel episode in 2021; managed conservatively. Patient presents with abdominal pain, nausea and constipation CT abdomen/pelvis shows finding consistent with a small bowel obstruction with transition point immediately deep to the umbilicus. Repeat KUB today show persistent small bowel obstruction Currently on clear liquid diet Continue analgesics, IV fluids Surgery on board; appreciate recommendation Hypertension, not on maintenance medications -- Mildly elevated likely secondary to pain recommend home blood pressure monitoring anxiety/OCD -- not on maintenance meds episodic bradycardia -- Sinus, patient well-built, athletic DVT prophylaxis SCDs Full code Please note the above document was generated using voice recognition software. It may contain grammatical, syntax or spelling errors. Any formal questions or concerns about the content, text or information contained within the body of this dictation should be directly addressed to the provider for clarification Admission and Anticipated Discharge Date Admission Date: March 02, 2024 Subjective He reports that he is feeling slightly better compared to yesterday. Patient report small bowel movements today No significant event overnight Review of Systems Review of Systems: All systems reviewed & are unremarkable except as noted in Subjective Physical Exam Physical Exam: General- oriented x 3, not in distress, speaks in sentences with no effort or accessory muscle use Eyes- anicteric Neck- no JVD Lungs- clear breath sounds bilaterally, no rales/wheezes Heart- normal rate, regular rhythm; no murmurs Abdomen- normal bowel sounds, nondistended, soft, Not tender Extremities- no pretibial edema, no calf tenderness Neuro- alert, oriented x 3; no gross focal neurologic deficits Skin- warm & dry Results & Data Results & Data Vital Signs (Past 12 Hours) Vital Signs Temp Pulse Resp BP Pulse Ox O2 Del Method 03/03/24 07:19 36.4 C L 57 L 16 135/74 98 Room Air
[2024-03-04 07:31] LABS: BUN Creatinine Ratio 11.7 (10-20); Calcium 8.7 mg/dl (8.6-10.3); Est GFR (African American) 99.1 ml/min; Est GFR (Non-African American) 85.5 ml/min; Potassium 3.7 mmol/L (3.5-5.1)
--- NOTE | 2024-03-04 08:44 | Surgery Progress Note ---
Date of Service March 04, 2024 Assessment & Plan (1) SBO (small bowel obstruction): Plan: Tolerating clears, advance to fulls then advance to low fiber He has had a return of bowel function Surgery will sign off at this time Admission and Anticipated Discharge Date Admission Date: March 02, 2024 Subjective Pt seen and examined. Tolerating clears. Had a large BM. Afebrile. Review of Systems Constitutional: no fever and no chills Gastrointestinal: no abdominal pain, no nausea and no vomiting Physical Exam Constitutional: WD/WN, vitals as above Gastrointestinal (Abdomen): Inspection/Auscultation: abdomen normal to inspection; abdomen not distended Percussion/Palpation: abdomen soft; abdomen nontender and no guarding Results & Data Vital Signs (Past 12 Hours) Vital Signs Temp Pulse Resp BP Pulse Ox O2 Del Method 03/04/24 07:10 36.4 C L 48 L 18 134/81 100 Room Air PG Care Time/CCT Total # of Minutes Spent Total Time Spent with Patient: Total time spent is greater than 50% in coordination of care (as documented) at patient's floor/unit and/or counseling patient: Coding Level of Care Code 50379 SUB INP/OBS CARE 08/28MIN Diagnoses SBO (small bowel obstruction) K56.609
--- NOTE | 2024-03-04 09:25 | Hospitalist Progress Note ---
Date of Service March 04, 2024 Assessment & Plan (1) SBO (small bowel obstruction): Plan: SBO (small bowel obstruction): Recurrent SBO History of umbilical hernia repair in 2020 and right inguinal hernia repair in 2017. Last small bowel episode in 2021; managed conservatively. Patient presents with abdominal pain, nausea and constipation CT abdomen/pelvis shows finding consistent with a small bowel obstruction with transition point immediately deep to the umbilicus. Repeat KUB 03/03 show persistent small bowel obstruction Patient had a BM overnight on 03/03 Diet advanced to full liquid; plan to advance to low fiber after he is tolerating the full liquid diet. Hypertension, not on maintenance medications -- Mildly elevated likely secondary to pain recommend home blood pressure monitoring anxiety/OCD -- not on maintenance meds episodic bradycardia -- Sinus, patient well-built, athletic DVT prophylaxis SCDs Full code Please note the above document was generated using voice recognition software. It may contain grammatical, syntax or spelling errors. Any formal questions or concerns about the content, text or information contained within the body of this dictation should be directly addressed to the provider for clarification Admission and Anticipated Discharge Date Admission Date: March 02, 2024 Subjective Overnight: Patient had large BM. Reports that his abdominal discomfort has improved No significant events overnight Review of Systems Review of Systems: All systems reviewed & are unremarkable except as noted in Subjective Physical Exam Physical Exam: General- oriented x 3, not in distress, speaks in sentences with no effort or accessory muscle use Eyes- anicteric Neck- no JVD Lungs- clear breath sounds bilaterally, no rales/wheezes Heart- normal rate, regular rhythm; no murmurs Abdomen- normal bowel sounds, nondistended, soft, Not tender Extremities- no pretibial edema, no calf tenderness Neuro- alert, oriented x 3; no gross focal neurologic deficits Skin- warm & dry Results & Data Results & Data Vital Signs (Past 12 Hours) Vital Signs Temp Pulse Resp BP Pulse Ox O2 Del Method 03/04/24 07:10 36.4 C L 48 L 18 134/81 100 Room Air
--- NOTE | 2024-03-04 15:22 | Discharge Summary ---
Date of Service March 04, 2024 Admission HPI Per Admitting Provider History obtained from patient and records. Medical history significant for hypertension, anxiety/OCD, IBS, lumbar radiculopathy, episodic bradycardia. Last confinement May 2022 for recurrent SBO, resolved with conservative management. Yesterday afternoon, patient noted epigastric discomfort reminiscent of bowel blockage attack. Nausea and constipation symptoms prior to discomfort as per patient. No fever, no chills, no chest pain, no SOB. 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 Admission Exam Per Admitting Provider GENERAL: Slightly uncomfortable, slightly anxious, obese, no respiratory distress SKIN: Normal color, warm HEENT: Alopecia, pink palpebral conjunctivae, no ptosis, dry buccal mucosa NECK : Supple, no tenderness CHEST : CTA, no tenderness HEART : Bradycardic, no obvious murmurs ABDOMEN: Some distention, central abdominal tenderness EXTREMITIES : No LE swelling/tenderness, no other conspicuous deformities noted NEUROLOGIC : Coherent, no facial asymmetry, no other gross focality Principal Diagnosis Small bowel obstruction Discharge Exam General- oriented x 3, not in distress, speaks in sentences with no effort or accessory muscle use Eyes- anicteric Neck- no JVD Lungs- clear breath sounds bilaterally, no rales/wheezes Heart- normal rate, regular rhythm; no murmurs Abdomen- normal bowel sounds, nondistended, soft, Not tender Extremities- no pretibial edema, no calf tenderness Neuro- alert, oriented x 3; no gross focal neurologic deficits Skin- warm & dry Discharge Data Allergies Allergy/AdvReac Type Severity Reaction Status Date / Time No Known Allergies Allergy Verified 03/01/24 23:36 Consultations 03/02/24 02:50 ED Decision to Admit Stat 03/02/24 05:39 Consult General Surgery Routine Ordered Studies 03/01/24 23:11 CT abd pelvis IV con only Stat Hospital Course (1) SBO (small bowel obstruction): SBO (small bowel obstruction): Recurrent SBO History of umbilical hernia repair in 2020 and right inguinal hernia repair in 2017. Last small bowel episode in 2021; managed conservatively. Patient presents with abdominal pain, nausea and constipation CT abdomen/pelvis shows finding consistent with a small bowel obstruction with transition point immediately deep to the umbilicus. Repeat KUB 03/03 show persistent small bowel obstruction Patient had a BM overnight on 03/03 and multiple bowel movement in a.m. on 03/04 Diet was advanced to full liquid and eventually to low fiber diet. Patient recommended to follow low fiber diet at time of discharge. Please note the above document was generated using voice recognition software. It may contain grammatical, syntax or spelling errors. Any formal questions or concerns about the content, text or information contained within the body of this dictation should be directly addressed to the provider for clarification Total Time Total Time Spent Total Time Spent (In Minutes): 45 Total Time Includes: Examination of the Patient, Discharge Planning, Medication Reconciliation, Communication With Other Providers and Other Discharge Plan Discharge Items Patient Disposition: Home - Self-Care Reason For Visit: SBO Discharge Diagnosis: Small bowel obstruction Activity: Resume your previous activity Non-emergency contact: Primary Care Provider Call non-emergency contact if: you have any medication questions Follow-up/Referrals: Dominick Baker MD [Primary Care Provider] - Diet: Regular Addtl Attending Provider Instructions: You were admitted to the hospital due to a small bowel obstruction. Please continue to follow a low fiber diet for next 2 to 4 weeks and gradually add fiber to your diet. Pending Studies at Discharge: No Stand-Alone Forms: My [facility] mSnap, Smoking Cessation Medications and DC Order Prescriptions: No Action No Known Home Medications Discharge Orders: Discharge Order (Routine); Ordered 03/04/24 Ordered By: Noah Reis Admission Data Admit Date/Time: 03/02/24 03:02 Attending Provider: Noah Reis Admit Provider: Mason Arroyo Primary Care Provider: Dominick Baker Other Providers: Kamilla Gates; Yoan Lobato; Saud Handy; Chaitanya Domínguez; Fracisco Grajeda; Natalia Johansen; Lee Mauro; Steve Rai; Jp Nuñez; Michael Moya; Mason Arroyo
== END 2024-03-04 20:30 | disposition home or self-care (01) | DRG 390 ==
LOC: ED 22:43 → SUATTDRO 03-02 03:02 → 3N 03-02 04:00